=== PATIENT | male | born 1950 | race Caucasian/White ===

== ENCOUNTER 2023-04-11 06:55 | Outpatient (RCR) | payer MEDICARE, OTHER, SELFPAY ==
--- NOTE | 2023-03-01 11:49 | CR1_ITS ---
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
--- NOTE | 2023-03-01 11:49 | CR1_ITS ---
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
--- NOTE | 2023-03-29 15:32 | CR1_ITS ---
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
== END 2023-04-25 13:52 | disposition home or self-care (01) ==
LOC: CR 06:55
PROVIDERS: PCP Family Medicine; Visit Provider Family Medicine
DX: Z95.1 Presence of aortocoronary bypass graft (principal)
CPT/HCPCS: 93798

== ENCOUNTER 2023-09-24 19:44 | Emergency (ER) | payer MEDICARE, OTHER, SELFPAY ==
[2023-09-24 19:55] VITALS: BP 107/71; PULSE 98; RESP 16; TEMP 37.7; O2SAT 97; BMI 25.0
--- NOTE | 2023-09-24 20:29 | ED_ITS ---
HPI - General Adult General Chief complaint: Upper Respiratory Infection Stated complaint: General Weakness Time Seen by Provider: 09/24/23 20:00 Source: patient Mode of arrival: Wheelchair History of Present Illness HPI narrative: Patient's and another relative that he has been around have both tested positive for Covid. The patient has not been tested at home - he developed symptoms a few days ago - generalized aches, fatigue, headache. yesterday he had a fever at 101F at home. His convinced him to come to the ED to be evaluated. No nausea or vomiting or diarrhea. No chest pain or shortness of breath. He has mild nasal congestion and some sore throat with cough. He was vaccianted x2 and had a booster. Related Data Home Medications Medication Instructions Recorded Confirmed allopurinol 100 mg tablet 100 mg PO DAILY 03/10/23 03/10/23 aspirin 81 mg capsule 81 mg PO DAILY 03/10/23 03/10/23 atorvastatin 10 mg tablet 10 mg PO QPM 03/10/23 03/10/23 clopidogrel 75 mg tablet 75 mg PO DAILY 03/10/23 03/10/23 dorzolamide 22.3 mg-timolol 6.8 1 drp ophthalmic (eye) BID 03/10/23 03/10/23 mg/mL eye drops (Cosopt) latanoprost 0.005 % eye drops 1 drp ophthalmic (eye) DAILY 03/10/23 03/10/23 (Xalatan) losartan 100 mg tablet 100 mg PO DAILY 03/10/23 03/10/23 metoprolol succinate 25 mg 12.5 mg PO DAILY 03/10/23 03/10/23 tablet,extended release 24 hr Allergies Allergy/AdvReac Type Severity Reaction Status Date / Time codeine Allergy Severe Verified 09/24/23 19:59 [facility] Medical History (Updated 09/24/23 @ 20:33 by Alexander Rivera) FHx: cholecystectomy ?Z83.79 - Family history of other diseases of the digestive system (ICD-10) Glaucoma ?H40.9 - Unspecified glaucoma (ICD-10) TIA (transient ischemic attack) ?G45.9 - Transient cerebral ischemic attack, unspecified (ICD-10) Fracture of T7 vertebra ?S22.069A - Unspecified fracture of T7-T8 vertebra, initial encounter for closed fracture (ICD-10) Sick sinus syndrome ?I49.5 - Sick sinus syndrome (ICD-10) CAD (coronary artery disease) ?I25.10 - Atherosclerotic heart disease of [place] coronary artery without angina pectoris (ICD-10) HTN (hypertension) ?I10 - Essential (primary) hypertension (ICD-10) Exam Narrative Exam Narrative: Nurses notes and vital signs reviewed and patient is not hypoxic. afebrile General: Well-appearing and in no apparent distress. Skin: Warm, dry, no pallor noted. No rash. Head: Normocephalic, atraumatic. Neck: Supple, non-tender. No cervical lymphadenopathy. Eye: Pupils are equal, round and EOMI. No scleral icterus. Ears, Nose, Mouth, and Throat: TM are clear, no posterior oropharynx erythema or nasal mucosal hypertrophy, uvula is mid-line Oral mucosa is moist Cardiovascular: Regular Rate and Rhythm without murmur, gallop or rub. Respiratory: No accessory muscle use or respiratory distress. Lungs are clear to auscultation, no wheezing, rales or rhonchi Musculoskeletal: normal ROM, no calf or popliteal tenderness, no lower extremity edema/swelling GI: Abdomen is soft, non-distended. Normal bowel sounds. No tenderness to palpation. No rebound, guarding, or rigidity noted. Neurological: A&O x4. No cranial nerve dysfunction observed. No truncal ataxia. Moves all extremities. Sensation intact. Psychiatric: Cooperative and interactive. Normal mood and affect. Constitutional Vital Signs, click to edit/add: Last Vital Signs Temp 99.8 F 09/24/23 19:55 Pulse 98 H 09/24/23 19:55 Resp 16 09/24/23 19:55 BP 107/71 09/24/23 19:55 Pulse Ox 97 09/24/23 19:55 O2 Del Method Room Air 09/24/23 19:55 Course Vital Signs Vital signs: Vital Signs Temperature 99.8 F 09/24/23 19:55 Pulse Rate 98 H 09/24/23 19:55 Respiratory Rate 16 09/24/23 19:55 Blood Pressure 107/71 09/24/23 19:55 Pulse Oximetry 97 09/24/23 19:55 Oxygen Delivery Method Room Air 09/24/23 19:55 Temperature 99.8 F 09/24/23 19:55 Pulse Rate 98 H 12/31/23 19:55 Respiratory Rate 16 09/24/23 19:55 Blood Pressure 107/71 09/24/23 19:55 Pulse Oximetry 97 09/24/23 19:55 Oxygen Delivery Method Room Air 09/24/23 19:55 Medical Decision Making MDM Narrative Medical decision making narrative: Patient has exposure history and symptoms that suggest he has COVID. He does not want Paxlovid. We discussed the treatment of COVID on an outpatient basis. I encouraged him to increase his fluid intake. He already is taking Tylenol. He cannot take NSAIDs due to his cardiac history. Patient advised to rest, stay at home, practice social distancing, take Motrin and Tylenol for pain and fever if not allergic, stay well hydrated with Gatorade or similar drinks if vomiting or eat as tolerated if not and take any meds as prescribed. Reviewed reasons to return including rapid increase in respiratory rate, shortness of breath, confusion, inability to keep down sips of swallowed liquids for more than 24 hours. Asked patient to encourage any ill contacts to stay home and practice similar advice. Discharge Plan Discharge Chief Complaint: Upper Respiratory Infection Clinical Impression: COVID Time of Disposition Decision: 20:32 Prescriptions / Home Meds: No Action atorvastatin 10 mg tablet 10 mg PO QPM clopidogrel 75 mg tablet 75 mg PO DAILY metoprolol succinate 25 mg tablet extended release 24 hr 12.5 mg PO DAILY losartan 100 mg tablet 100 mg PO DAILY aspirin 81 mg capsule 81 mg PO DAILY allopurinol 100 mg tablet 100 mg PO DAILY dorzolamide-timolol [Cosopt] 22.3-6.8 mg/mL drops 1 drp ophthalmic (eye) BID latanoprost [Xalatan] 0.005 % drops 1 drp ophthalmic (eye) DAILY Instructions: COVID-19 (Coronavirus Disease 2019) (ED), COVID-19 and Chronic Health Conditions (ED), How to Recover from COVID-19 at Home (ED) Stand Alone Forms: Portal Instructions Referrals: ANTOINETTE LAO [Primary Care Provider] - 1 week
[2023-09-24 21:01] VITALS: PULSE 74; O2SAT 96
== END 2023-09-24 21:03 | disposition home or self-care (01) ==
PROVIDERS: Emergency Provider Emergency Medicine; PCP Family Medicine
DX: U07.1 COVID-19 (principal); Z86.73 Personal history of transient ischemic attack (TIA), and cerebral infarction without residual deficits; I25.10 Atherosclerotic heart disease of native coronary artery without angina pectoris; I10 Essential (primary) hypertension; Z79.899 Other long term (current) drug therapy; Z79.82 Long term (current) use of aspirin
CPT/HCPCS: 87804; 99281

== ENCOUNTER 2023-10-12 06:53 | Emergency (ER) | payer MEDICARE, OTHER, SELFPAY ==
[2023-10-12] VITALS (22 sets, daily range): BP systolic 81–97; BP diastolic 48–58; PULSE 60–78; RESP 9–21; TEMP 36.9–37.7; O2SAT 95–100; BMI 25.1
--- OUTSIDE RECORDS SUMMARY | 2023-10-12 07:01 | XMS_ITS | CCD ---
Author Name Unknown Address [address] [facility] [place] [address] Organization [facility] Care Team Providers Care Tallier Name Role Phone Dank BECK, Jose Jacques Primary Care Provider [phone] Yony BUSBY Attending Unavailable MD Yony BUSBY Attending Unavailable LIVE AVILA Attending Unavailable Dank BECK, Jose Jacques Primary Care Provider Rekha BECK, Shanon Em Primary Care Provider SHANON DA SILVA Primary Care Unavailab le LANKESTERRABIA Attending Unavaila ble VIGESAA, SHANON EM Primary Care Unavailab le GARCIAAIDEN Attending Unavailab le LANKESTER, RABIA VIVEROS Attending Unavaila ble VIGESAA, SHANON EM Primary Care Unavailab le VIGESAA, SHANON EM Primary Care Unavailab le GARCIAAIDEN Attending Unavailab le GARCIAAIDEN Referring Unavailab le VIGESAA, SHANON EM Primary Care Unavailab le VIGESAA, SHANON EM Primary Care Unavailab le GARCIAAIDEN Attending Unavailab le GARCIAAIDEN Referring Unavailab le VIGESAA, SHANON EM Primary Care Unavailab le VIGESAA, SHANON EM Primary Care Unavailab le LANKESTERRABIA Attending Unavaila ble LANKESTERRABIA Referring Unavaila ble VIGESAA, SHANON EM Primary Care Unavailab le VIGESAA, SHANON EM Admitting Unavailab le DENYGABRIEL Consulting Unavailab le DENYGABRIEL Attending Unavailab le VIGESAA, SHANON EM Primary Care Unavailab le CHAVESLANDY BARDALES Admitting Unavailabl e AIDEN GARCIA Attending Unavailab AIDEN Ritchie Referring Unavailab le MARILOUC, DOCTOR Admitting Unavailable MISC, DR MENDENHALL Attending Unavailable HEMEYER ., DR CURRY Primary Care Unavailable HEMEYER ., DR CURRY Admitting Unavailable HEMEYER ., DR CURRY Primary Care Unavailable HEMEYER ., DR CURRY Consulting Unavailable HEMEYER ., DR CURRY Attending Unavailable MISC, DR MENDENHALL Attending Unavailable HEMEYER ., DR CURRY Primary Care Unavailable HEMEYER ., DR CURRY Consulting Unavailable MISC, DOCTOR Admitting Unavailable VIGESAA, TAJ S Referring Unavailable HEMEYER, EDWARD J Primary Care Unavailable VIGESAA, TAJ S Referring Unavailable HEMEYER, EDADOLFO J Primary Care Unavailable VIGESAA, TAJ S Referring Unavailable HEMEYER, EDADOLFO J Primary Care Unavailable VIGESAA, TAJ S Referring Unavailable HEMEYER, EDADOLFO J Primary Care Unavailable VIGESAA, TAJ S Referring Unavailable HEMEYER, JOSE Jacques Primary Care Unavailable VIGESAA, TAJ S Referring Unavailable HEMEYER, JOSE J Primary Care Unavailable VIGESAA, TAJ S Referring Unavailable HEMEYER, EDWARD J Primary Care Unavailable VIGESAA, TAJ S Referring Unavailable HEMEYER, EDWARD J Primary Care Unavailable VIGESAA, TAJ S Referring Unavailable HEMEYER, EDADOLFO Jacques Primary Care Unavailable VIGESAA, TAJ S Referring Unavailable HEMEYER, EDWARD J Primary Care Unavailable VIGESAA, TAJ S Referring Unavailable HEMEYER, EDWARD J Primary Care Unavailable VIGESAA, TAJ S Referring Unavailable HEMEYER, EDADOLFO Jacques Primary Care Unavailable VIGESAA, TAJ S Admitting Unavailable VIGESAA, TAJ S Attending Unavailable HEMEYER, EDADOLFO J Primary Care Unavailable VIGESAA, TAJ S Referring Unavailable HEMEYER, EDWARD J Primary Care Unavailable VIGESAA, TAJ S Referring Unavailable HEMEYER, EDWARD Georige Primary Care Unavailable Hemeyer Jose BECK Primary Care Provider Allergies Allergy Classification Reported Allergen(s) Allergy Type Date of Onset Reaction(s) Facility (20 sources) Codeine; Translations: [codeine] Drug Allergy 2 Other (See Comments) [facility] (1 source) Codeine Drug Allergy 4 [facility] Repository Medications Current Medications Medication Drug Class(es) Dates Sig (Normalized) Sig (Original) acetaminophen 325 mg oral tablet (1 source) Start: 10-05-2022 take 650 mg by mouth every four hours for pain 650 mg, Oral, EVERY 4 HOURS PRN, Starting on Mon10/05/22 at 1124, Until Discontinued, Other, Pain (1-10) Give in addition to any other pain medication ordered at same time for any pain indication. Recovery(Cath) allopurinol 100 mg oral tablet (18 sources) Xanthine Oxidase Inhibitor take 1 tablet by mouth once daily allopurinol (ZYLOPRIM) 100 MG tablet Take 100 mg by mouth daily 0 Active aspirin 81 mg delayed release oral tablet (19 sources) Platelet Aggregation Inhibitor, Nonsteroidal Anti-inflammatory Drug Start: 10-21-2022 End: 10-21-2023 take 1 tablet by mouth once daily aspirin 81 MG EC tablet Take 1 (one) tablet (81 mg total) by mouth daily . 30 tablet 11 10/21/2022 10/21/2023 Active Start: 10-05-2022 take 81 mg by mouth every other day 81 mg, Oral, EVERY OTHER DAY, First dose on Mon10/05/22 at 1145, Until Discontinued Do not crush or break. atorvastatin 10 mg oral tablet (9 sources) HMG-CoA Reductase Inhibitor Start: 10-21-2022 End: 01-19-2023 take 1 tablet by mouth once daily atorvastatin (LIPITOR) 10 MG tablet Take 1 (one) tablet (10 mg total) by mouth nightly . 30 tablet 2 10/21/2022 01/19/2023 Active bisacodyl 10 mg rectal suppository (6 sources) Stimulant Laxative Start: 10-21-2022 End: 11-20-2022 bisacodyL (DULCOLAX) 10 mg suppository Insert 1 (one) suppository (10 mg total) into the rectum daily as needed for constipation . 12 suppository 0 10/21/2022 11/20/2022 Active clopidogrel 75 mg oral tablet (9 sources) P2Y12 Platelet Inhibitor Start: 10-22-2022 End: 01-20-2023 take 1 tablet by mouth once daily clopidogreL (PLAVIX) 75 mg tablet Take 1 (one) tablet (75 mg total) by mouth daily Start: 10/22/22. 30 tablet 2 10/22/2022 01/20/2023 Active dorzolamide 20 mg/ml / timolol 5 mg/ml ophthalmic solution (18 sources) Carbonic Anhydrase Inhibitor, beta-Adrenergic Jorge Start: 06-01-2022 dorzolamide-timolol (COSOPT) 22.3-6.8 MG/ML ophthalmic solution 22.3 drops 0 06/01/2022 Active Start: 06-01-2022 dorzolamide-ti moloL (COSOPT) 22.3-6.8 mg/mL ophthalmic solution 22 (twenty two) drops . 0 06/01/2022 Active losartan potassium 50 mg oral tablet (13 sources) Angiotensin 2 Receptor Jorge Start: 11-21-2022 End: 12-21-2022 take 1 tablet by mouth once daily losartan (COZAAR) 50 MG tablet Indications: S/P CABG (coronary artery bypass graft) Take 1 (one) tablet (50 mg total) by mouth daily . 30 tablet 0 11/21/2022 12/21/2022 Active Start: 10-06-2022 take 100 mg by mouth once karina y 100 mg, Oral, DAILY, First dose on Mirian 10/06/22 at 0900, Until Discontinued losartan (COZAAR ) 100 MG tablet Take 50 mg by mouth daily 0 Active take 1 tablet by ruslan th once daily losartan (COZAAR) 100 MG tablet Take 100 mg by mouth daily 0 Active 24 hr metoprolol succinate 25 mg extended release oral tablet (11 sources) beta-Adrenergic Jorge Start: 10-22-2022 End: 01-20-2023 take 0.5 tablet by mouth once daily metoprolol succinate (TOPROL-XL) 25 MG 24 hr tablet Take 0.5 (one-half) tablet (12.5 mg total) by mouth daily Start: 10/22/22. 15 tablet 2 10/22/2022 01/20/2023 Active Start: 10-06-2022 take 1 tablet by ruslan th twice daily metoprolol tartrate (LOPRESSOR) 25 MG tablet Take 1 tablet by mouth 2 times daily 60 tablet 3 10/06/2022 Active Start: 10-06-2022 metoprolol tar trate (LOPRESSOR) tablet 25 mg take 1 tablet by ruslan th once daily metoprolol succinate (TOPROL XL) 50 MG extended release tablet Take 50 mg by mouth daily 0 Active prednisoLONE acetate 10 mg/ml ophthalmic suspension (3 sources) Corticosteroid Start: 09-08-2022 prednisoLONE a cetate (PRED FORTE) 1 % ophthalmic suspension instill 1 (ONE) DROP IN THE LEFT EYE FOUR TIMES DAILY for FOUR days 0 09/08/2022 Active 1000 ml sodium chloride 9 mg/ml injection (5 sources) Start: 10-05-2022 IntraVENous, a t 5-250 mL/hr, PRN, if patient receiving piggyback infusions and maintenance fluids are not ordered OR KVO fluids to protect IV site / prevent frequent line interruptions/ long duration, Starting on Mon10/05/22 at 1124 For piggyback infusion, administer at same rate as piggyback for a total of 25 mL. Enter 25 mL into dose field and piggyback rate into rate field of order. If piggyback is infusing at a rate less than 100 mL/hr, enter 25 mL into dose field and 100 mL/hr into rate field of order. For KVO fluids, enter rate of 20 mL/hr or less into rate field of order. Recovery(Cath) Start: 10-05-2022 take 1 dose intraven ously twice daily 5-40 mL, IntraVENous, EVERY 12 HOURS SCHEDULED (2 times per day), First dose on Mon10/05/22 at 1145, Until Discontinued For Line Patency: Peripheral IV = 5 mL; Midline or Central Line = 10 mL/lumen. If following IV push medication, administer flush at same rate as the IV push. Flush volume is determined by type of infusion therapy being given. For non-viscous solutions use: Peripheral IV = 5 mL Midline or Central Line = 10 mL/lumen For viscous solutions (i.e. blood components, parenteral nutrition, contrast media, or after obtaining blood sample) use: Peripheral IV = 10 mL Midline or Central Line = 20 mL/lumen Recovery(Cath) Start: 10-05-2022 take 5-40 mL intrave nously once as needed 5-40 mL, IntraVENous, PRN, Starting on Mon10/05/22 at 1124, Until Discontinued, Line Care, After every IV line use For Line Patency: Peripheral IV = 5 mL; Midline or Central Line = 10 mL/lumen. If following IV push medication, administer flush at same rate as the IV push. Flush volume is determined by type of infusion therapy being given. For non-viscous solutions use: Peripheral IV = 5 mL Midline or Central Line = 10 mL/lumen For viscous solutions (i.e. blood components, parenteral nutrition, contrast media, or after obtaining blood sample) use: Peripheral IV = 10 mL Midline or Central Line = 20 mL/lumen Recovery(Cath) Start: 10-05-2022 End: 10-05-2022 0.9 % sodium chloride infusi on Start: 09-06-2022 End: 09-07-2022 sodium chloride (PF) 0.9 % i njection 10 mL traMADol hydrochloride 50 mg oral tablet (3 sources) Opioid Agonist Start: 10-21-2022 End: 10-24-2022 take 1 tablet by mouth every eight hours as needed for pain traMADoL (ULTRAM) 50 mg tablet Indications: S/P CABG (coronary artery bypass graft) Take 1 (one) tablet (50 mg total) by mouth every 8 (eight) hours as needed for pain . 9 tablet 0 10/21/2022 10/24/2022 Active Start: 10-05-2022 End: 10-11-2022 take 1 tablet by mouth every six hours as needed for pain traMADol (ULTRAM) 50 MG tablet Indications: Post-op pain , SSS (sick sinus syndrome) ([facility]) Take 1 tablet by mouth every 6 hours as needed for Pain for up to 5 days. Max Daily Amount: 200 mg 20 tablet 0 10/06/2022 10/11/2022 Active Completed/Discontinued Medications Medication Drug Class(es) Dates Sig (Normalized) Sig (Original) ceFAZolin 2000 mg injection (1 source) Cephalosporin Antibacterial Start: 10-05-2022 End: 10-05-2022 ceFAZolin (ANCEF) 2000 mg in dextrose 3 % 50 mL IVPB (duplex) docusate sodium 100 mg oral capsule (8 sources) Start: 10-25-2022 End: 11-24-2022 take 1 capsule by mouth twice daily docusate sodium (COLACE) 100 MG capsule Indications: S/P CABG (coronary artery bypass graft) Take 1 (one) capsule (100 mg total) by mouth 2 (two) times a day Hold if you have loose stool . 60 capsule 0 10/25/2022 11/21/2022 Discontinued (Therapy completed) Start: 10-22-2022 End: 11-21-2022 take 1 capsule by mouth once daily docusate sodium (COLACE) 100 MG capsule Take 1 (one) capsule (100 mg total) by mouth daily Hold if you have loose stool Start: 10/22/22. 30 capsule 0 10/22/2022 10/25/2022 Discontinued ferrous sulfate 325 mg oral tablet (2 sources) Start: 10-21-2022 End: 11-20-2022 take 1 tablet by mouth three times daily at mealtime ferrous sulfate 325 (65 FE) MG tablet Take 1 (one) tablet (325 mg total) by mouth 3 (three) times a day with meals . 90 tablet 0 10/21/2022 10/25/2022 Discontinued (Side effects) latanoprost 0.05 mg/ml ophthalmic solution (19 sources) Prostaglandin Analog Start: 10-05-2022 1 drop, Both Eyes, NIGHTLY, First dose on Mon10/05/22 at 2100, Until Discontinued Start: 06-18-2022 take 1 drop(s) into the eye(s) at bedtime latanoprost (XALATAN) 0.005 % ophthalmic solution INSTILL 1 DROP IN BOTH EYES AT BEDTIME 0 06/18/2022 Active Start: 06-18-2022 take 1 drop(s) into the eye(s) at bedtime latanoprost (XALATAN) 0.005 % ophthalmic solution Administer 1 (one) drop to both eyes at bedtime . 0 06/18/2022 Active nabumetone 750 mg oral tablet (3 sources) Nonsteroidal Anti-inflammatory Drug End: 09-06-2022 nabumetone (RELAFEN) 750 MG tablet Take 750 mg by mouth as needed for Pain 0 09/06/2022 Discontinued (Therapy completed) pantoprazole 40 mg delayed release oral tablet (7 sources) Proton Pump Inhibitor Start: 10-21-2022 End: 11-21-2022 take 1 tablet by mouth once daily pantoprazole (PROTONIX) 40 MG tablet Take 1 (one) tablet (40 mg total) by mouth daily . 30 tablet 0 10/21/2022 11/21/2022 Discontinued (Therapy completed) regadenoson (LEXISCAN) injection 0.4 mg (1 source) Start: 09-06-2022 End: 09-06-2022 regadenoson (LEXISCAN) injection 0.4 mg technetium sestamibi (CARDIOLITE) injection 10 millicurie (1 source) Start: 09-06-2022 End: 09-06-2022 technetium sestamibi (CARDIOLITE) injection 10 millicurie technetium sestamibi (CARDIOLITE) injection 30 millicurie (1 source) Start: 09-06-2022 End: 09-06-2022 technetium sestamibi (CARDIOLITE) injection 30 millicurie Problems Active Problems Problem Classification Problem Date Documented Da te Episodic/Chronic Cardiac dysrhythmias (10 sources) Ventricular tachycardia; Translations: [V-tach] Onset: 10-05-2022 Chronic Conduction disorders (3 sources) Presence of cardiac pacemaker; Translations: [Cardiac pacemaker in situ] Onset: 02-21-2023 Chronic Coronary atherosclerosis and other heart disease (9 sources) Coronary arteriosclerosis; Translations: [Atherosclerotic heart disease of [place] coronary artery without angina pectoris] Onset: 10-14-2022 10-14-2022 Chronic Coronary atherosclerosis and other heart disease (11 sources) Presence of aortocoronary bypass graft; Translations: [Presence of aortocoronary bypass graft] Onset: 10-25-2022 Episodic Disorders of lipid metabolism (5 sources) Hyperlipidemia, unspecified; Translations: [Hyperlipidemia] Onset: 02-21-2023 Chronic Essential hypertension (14 sources) Hypertensive disorder; Translations: [Essential (primary) hypertension] Onset: 05-18-2022 Chronic Malaise and fatigue (6 sources) Fatigue; Translations: [Chronic fatigue, unspecified] Onset: 07-19-2022 Chronic Nutritional deficiencies (6 sources) Vitamin D deficiency; Translations: [Vitamin D deficiency, unspecified] Onset: 07-19-2022 Chronic Other and ill-defined heart disease (3 sources) Atrial dilatation; Translations: [Cardiomegaly] Chronic Other and ill-defined heart disease (4 sources) Cardiomegaly; Translations: [CARDIOMEGALY] Onset: 05-20-2022 Chronic Other lower respiratory disease (1 source) Dyspnea; Translations: [Shortness of breath] Episodic Other nervous system disorders (1 source) Postoperative pain ; Translations: [Other acute postprocedural pain] Episodic Jenny-; endo-; and myocarditis; cardiomyopathy (except that caused by tuberculosis or sexually transmitted disease) (1 source) Endocarditis, valve unspecified; Translations: [ENDOCARDITIS VALVE UNSPECIFIED] Onset: 05-20-2022 Chronic Unclassified (1 source) Ventricular tachycardia, unspecified; Translations: [Ventricular tachycardia, unspecified] Onset: 09-06-2022 Past or Other Problems Problem Classification Problem Date Documented Date Episodic/Chronic Cardiac dysrhythmias (7 sources) Bradycardia; Translations: [Bradycardia, unspecified] Onset: 05-20-2022 Episodic Heart valve disorders (12 sources) Heart murmur; Translations: [Cardiac murmur, unspecified] Onset: 07-19-2022 Episodic Other lower respiratory disease (1 source) Shortness of breath; Translations: [Shortness of breath] Onset: 09-06-2022 Episodic Other nervous system disorders (1 source) Other acute postprocedural pain; Translations: [Other acute postprocedural pain] Onset: 10-05-2022 Episodic Other screening for suspected conditions (not mental disorders or infectious disease) (7 sources) Electrocardiogram abnormal; Translations: [Abnormal electrocardiogram [ECG] [EKG]] Onset: 09-06-2022 Episodic Results Test Name Value Interpretation Reference Range Facility CBC with Auto Differentialon 02-21-2023 Basophils (Bld) [#/Vol] 0.10 10*3/[facility]L [facility] Basophils/100 WBC (Bld) 1 % 0 - 2 % [facility] Differential Type YES [facility] Eosinophils (Bld) [#/Vol] 0.20 10*3/uL [facility] Eosinophils/100 WBC (Bld) 3 % 0 - 5 % [facility] Erythrocyte distribution width (RBC) [Ratio] 14.4 % 12.1 - 15.2 % [facility] Hematocrit (Bld) [Volume fraction] 45.3 % 41 - 53 % [facility] Hemoglobin (Bld) [Mass/Vol] 15.4 g/dL 13.5 - 17.5 g/dL [facility] Lymphocytes/100 WBC (Bld) 19 % 13 - 44 % [facility] Lymphocytes/100 WBC (Bld) 1.50 % [facility] MCH (RBC) [Entitic mass] 30.5 pg 26 - [address] [facility] MCHC (RBC) [Mass/Vol] 33.9 g/dL 31 - 37 g/dL B ON [facility] MCV (RBC) [Entitic vol] 89.9 fL 80 - [address] [facility] Monocytes/100 WBC (Bld) 9 % 5 - 9 % [facility] Monocytes/100 WBC (Bld) 0.70 % [facility] Neutrophils/100 WBC (Bld) 68 % 39 - 75 % [facility] Platelets (Bld) [#/Vol] 247 10*3/uL [facility] RBC (Bld) [#/Vol] 5.04 10*6/uL 4.5 - 5.9 m/uL [facility] Segmented neutrophils/100 WBC (Bld) 5.40 % [facility] WBC other (Bld) [#/Vol] 7.8 [facility] CBC with Diffon 02-21-2023 Abs. Basophil 0.10 k/uL Normal 0.0-0.2 [facility] Comment on above: Performed By: #### C DP, MG, ZFAST, TSHX, CP ####[facility] [id number] [facility] [place] [address] Lab Director: Maureen Gonsalves MD#### LIPR ####[address] [place], [place] [id number] lab Director: Malick Ballard MD Abs.Neutrophil (Seg) 5.40 k/uL Normal 2.1-6.5 [facility] Comment on above: Performed By: #### C DP, MG, ZFAST, TSHX, CP ####[facility] [id number] Lab Director: Maureen Gonsalves MD#### LIPR ####[place] [address] Lab Director: Malick Ballard MD Auto Diff Performed YES Normal [facility] Comment on above: Performed By: #### C DP, MG, ZFAST, TSHX, CP ####[facility] [id number] [place], [place] [address])[phone] Director: Maureen Gonsalves MD#### LIPR ####[place] [address] Lab Director: Malick Ballard MD Basophils/100 WBC (Bld) 1 % Normal 0-2 [facility] Comment on above: Performed By: #### C DP, MG, ZFAST, TSHX, CP ####[facility] [id number] [place], [place] [address])[phone] Director: Maureen Gonsalves MD#### LIPR ####[place] [address] Lab Director: Malick Ballard MD Eosinophils (Bld) [#/Vol] 0.20 10*3/uL Normal 0.0-0.4 [facility] Comment on above: Performed By: #### C DP, MG, ZFAST, TSHX, CP ####[facility] [id number] Lab Director: Maureen Gonsalves MD#### LIPR ####[place] [address] Lab Director: Malick Ballard MD Eosinophils/100 WBC (Bld) 3 % Normal 0-5 [facility] Comment on above: Performed By: #### C DP, MG, ZFAST, TSHX, CP ####[facility] [address] [place], [place] [id number] Lab Director: Maureen Gonsalves MD#### LIPR ####[address] [place] [address] Lab Director: Malick Ballard MD Erythrocyte distribution width (RBC) [Ratio] 14.4 % Normal 12.1-15.2 [facility] Comment on above: Performed By: #### C DP, MG, ZFAST, TSHX, CP ####[facility] [id number] [place], [place] [id number] Lab Director: Maureen Gonsalves MD#### LIPR ####[address] [address] Lab Director: Malick Ballard MD Hematocrit (Bld) [Volume fraction] 45.3 % Normal 41-53 [facility] Comment on above: Performed By: #### C DP, MG, ZFAST, TSHX, CP ####[facility] [id number] [place], [place] [phone] Lab Director: Maureen Gonsalves MD#### LIPR ####[address] [address] Lab Director: Malick Ballard MD Hemoglobin (Bld) [Mass/Vol] 15.4 g/dL Normal 13.5-17.5 [facility] Comment on above: Performed By: #### C DP, MG, ZFAST, TSHX, CP ####[facility] [id number] [place], [place] [id number] Lab Director: Maureen Gonsalves MD#### LIPR ####[address] [address] Lab Director: Malick Ballard MD Lymphocytes (Bld) [#/Vol] 1.50 10*3/uL Normal 1.0-4.8 [facility] Comment on above: Performed By: #### C DP, MG, ZFAST, TSHX, CP ####[facility] [id number] [place], [place] [id number] Lab Director: Maureen Gonsalves MD#### LIPR ####[address] [place] [address] Lab Director: Malick Ballard MD Lymphocytes/100 WBC (Bld) 19 % Normal 13-44 [facility] Comment on above: Performed By: #### C DP, MG, ZFAST, TSHX, CP ####[facility] [id number] [place], [place] [phone] Lab Director: Maureen Gonsalves MD#### LIPR ####[address] [address] Lab Director: Malick Ballard MD MCH (RBC) [Entitic mass] 30.5 pg Normal 26-34 [facility] Comment on above: Performed By: #### C DP, MG, ZFAST, TSHX, CP ####[facility] [id number] [place], [place] [id number] Lab Director: Maureen Gonsalves MD#### LIPR ####[address] [address] Lab Director: Malick Ballard MD MCHC (RBC) [Mass/Vol] 33.9 g/dL Normal 31-37 [facility] Comment on above: Performed By: #### C DP, MG, ZFAST, TSHX, CP ####[facility] [id number] [place], [place] [id number] Lab Director: Maureen Gonsalves MD#### LIPR ####[address] [place] [address] Lab Director: Malick Ballard MD MCV (RBC) [Entitic vol] 89.9 fL Normal 80-100 [facility] Comment on above: Performed By: #### C DP, MG, ZFAST, TSHX, CP ####[facility] [id number] [place], [place] [address])[phone] Director: Maureen Gonsalves MD#### LIPR ####[address] [place] [address] Lab Director: Malick Ballard MD Monocytes (Bld) [#/Vol] 0.70 10*3/uL Normal 0.0-1.0 [facility] Comment on above: Performed By: #### C DP, MG, ZFAST, TSHX, CP ####[facility] [address] [place], [place] [address])[phone] Director: Maureen Gonsalves MD#### LIPR ####[place], [place] [address])[phone] Director: Malick Ballard MD Monocytes/100 WBC (Bld) 9 % Normal 5-9 [facility] Comment on above: Performed By: #### C DP, MG, ZFAST, TSHX, CP ####[facility] [address] [place], [place] [address])[phone] Director: Maureen Gonsalves MD#### LIPR ####[address] [place], [place] [address])[phone] Director: Malick Ballard MD Neutrophil (Seg) 68 % Normal 39-75 [facility] Comment on above: Performed By: #### C DP, MG, ZFAST, TSHX, CP ####[facility] [address] [place], [place] [address])[phone] Director: Maureen Gonsalves MD#### LIPR ####[address] [place] [address] Lab Director: Malick Ballard MD Platelets (Bld) [#/Vol] 247 10*3/uL Normal 140-450 [facility] Comment on above: Performed By: #### C DP, MG, ZFAST, TSHX, CP ####[facility] [id number] [place], [place] [id number])[phone] Director: Maureen Gonsalves MD#### LIPR ####[address] [place], [place] [id number])[phone] Director: Malick Ballard MD RBC (Bld) [#/Vol] 5.04 10*6/uL Normal 4.5-5.9 [facility] Comment on above: Performed By: #### C DP, MG, ZFAST, TSHX, CP ####[facility] [address] [place], [place] [address])[phone] Director: Maureen Gonsalves MD#### LIPR ####[address] [id number])[phone] Director: Malick Ballard MD WBC (Bld) [#/Vol] 7.8 10*3/uL Normal 3.5-11.0 [facility] Comment on above: Performed By: #### C DP, MG, ZFAST, TSHX, CP ####[facility] [id number] [place] [place], [place] [phone] Director: Maureen Gonsalves MD#### LIPR ####[address] [place], [place] [phone])[phone] Director: Malick Ballard MD Comp Metabolic Profon 2022 Alkaline Phos 177 U/L High 40-129 [facility] [place] Comment on above: Performed By: #### C DP, MG, ZFAST, TSHX, CP ####[facility] [address] [place], [place] [phone] Director: Maureen Gonsalves MD#### LIPR ####[facility] [address] [place], [place] [phone] Lab Director: Malick Ballard MD BUN/CRE Ratio 18 Normal 9-20 [facility] [place] Comment on above: Performed By: #### C DP, MG, ZFAST, TSHX, CP ####[facility] Yif[address] [place], [place] [phone] Lab Director: Maureen Gonsalves MD#### LIPR ####[facility] [place], [place] 2167908 Lab Director: Malick Ballard MD GFR/1.73 sq M.predicted among non-blacks MDRD (S/P/Bld) [Vol rate/Area] mL/min/{1.73_m2} Normal >60 [facility] Comment on above: Result Comment: These results are not intended for use in patients <18 years of age. eGFR results are calculated without a race factor using the 2020 CKD-EPI equation. Careful clinical correlation is recommended, particularly when comparing to results calculated using previous equations. The CKD-EPI equation is less accurate in patients with extremes of muscle mass, extra-renal metabolism of creatine, excessive creatine ingestion, or following therapy that affects renal tubular secretion. Performed By: #### C DP, MG, ZFAST, TSHX, CP ####[facility] [address] [place], [place] [phone] Lab Director: Maureen Gonsalves MD#### LIPR ####[facility] [address] [place] [address] Lab Director: Malick Ballard MD Albumin [Mass/Vol] 4.4 g/dL Normal 3.5-5.2 [facility] Comment on above: Performed By: #### C DP, MG, ZFAST, TSHX, CP ####[facility] [address] [place], [place] [phone] Lab Director: Maureen Gonsalves MD#### LIPR ####[facility] [place] [address] Lab Director: Malick Ballard MD ALT [Catalytic activity/Vol] 28 U/L Normal 5-[address] [facility] Comment on above: Performed By: #### C DP, MG, ZFAST, TSHX, CP ####[facility] [address] [place], [place] 1971190 lab Director: Maureen Gonsalves MD#### LIPR ####[address] [phone] Lab Director: Malick Ballard MD Anion gap [Moles/Vol] 9 mmol/L Normal 9-[address] [facility] Comment on above: Performed By: #### C DP, MG, ZFAST, TSHX, CP ####[facility] [address] [place], [place] [phone] lab Director: Maureen Gonsalves MD#### LIPR ####[address] [address] lab Director: Malick Ballard MD AST [Catalytic activity/Vol] 26 U/L Normal <[address] [facility] Comment on above: Performed By: #### C DP, MG, ZFAST, TSHX, CP ####[facility] Krc[address] [place], [place] [phone] lab Director: Maureen Gonsalves MD#### LIPR ####[address] [address] lab Director: Malick Ballard MD Bilirubin [Mass/Vol] 0.6 mg/dL Normal 0.3-1.[address] [facility] Comment on above: Performed By: #### C DP, MG, ZFAST, TSHX, CP ####[facility] [address] [place], [place] [phone] lab Director: Maureen Gonsalves MD#### LIPR ####[address] [place], [place] 7592408 Lab Director: Malick Ballard MD Calcium [Mass/Vol] 10.1 mg/dL Normal 8.6-10.4 [facility] Comment on above: Performed By: #### C DP, MG, ZFAST, TSHX, CP ####[facility] [address] [place] [address] lab Director: Maureen Gonsalves MD#### LIPR ####[address] [place], [place] [phone] lab Director: Malick Ballard MD Chloride [Moles/Vol] 107 mmol/L Normal 98-[address] [facility] Comment on above: Performed By: #### C DP, MG, ZFAST, TSHX, CP ####[place] [address] lab Director: Maureen Gonsalves MD#### LIPR ####[address] [phone] lab Director: Malick Ballard MD CO2 [Moles/Vol] 23 mmol/L Normal 20-31 [facility] Comment on above: Performed By: #### C DP, MG, ZFAST, TSHX, CP ####[facility] [address] [place] [phone] Lab Director: Maureen Gonsalves MD#### LIPR ####[address] [place], [place] 0284408 Lab Director: Malick Ballard MD Creatinine [Mass/Vol] 1.11 mg/dL Normal 0.70-1.[address] [facility] Comment on above: Performed By: #### C DP, MG, ZFAST, TSHX, CP ####[facility] [address] [place] [phone] lab Director: Maureen Gonsalves MD#### LIPR ####[address] [place], [place] 0504708 Lab Director: Malick Ballard MD Glucose [Mass/Vol] 97 mg/dL Normal 70-99 [facility] Comment on above: Performed By: #### C DP, MG, ZFAST, TSHX, CP ####[facility] [address] [place], [place] [phone] lab Director: Maureen Gonsalves MD#### LIPR ####[address] [phone] Lab Director: Malick Ballard MD Potassium [Moles/Vol] 4.2 mmol/L Normal 3.7-5.3 [facility] Comment on above: Performed By: #### C DP, MG, ZFAST, TSHX, CP ####[facility] Mtb[address] [place], [place] [phone] lab Director: Maureen Gonsalves MD#### LIPR ####[address] [address] Lab Director: Malick Ballard MD Protein [Mass/Vol] 6.6 g/dL Normal 6.4-8.3 [facility] Comment on above: Performed By: #### C DP, MG, ZFAST, TSHX, CP ####[facility] [address] [place], [place] [phone] Lab Director: Maureen Gonsalves MD#### LIPR ####[address] [phone] Lab Director: Malick Ballard MD Sodium [Moles/Vol] 139 mmol/L Normal 135-144 [facility] Comment on above: Performed By: #### C DP, MG, ZFAST, TSHX, CP ####[facility] [address] [place], [place] 9289490 lab Director: Maureen Gonsalves MD#### LIPR ####[facility] [address] [place], [place] 4811108 lab Director: Malick Ballard MD Urea nitrogen [Mass/Vol] 20 mg/dL Normal 8-[address] [facility] Comment on above: Performed By: #### C DP, MG, ZFAST, TSHX, CP ####[facility] [address] [place], [place] 3494690 lab Director: Maureen Gonsalves MD#### LIPR ####[facility] [place], [place] 7072208 lab Director: Malick Ballard MD Comprehensive Metabolic Pane john 02-21-2023 ALP [Catalytic activity/Vol] 177 U/L High 40 - 129 U/L [facility] GFR/1.73 sq M.predicted MDRD (S/P/Bld) [Vol rate/Area] - PINF [facility] Comment on above: These results are not intended for use in patients <18 years of age. eGFR results are calculated without a race factor using the 2020 CKD-EPI equation. Careful clinical correlation is recommended, particularly when comparing to results calculated using previous equations. The CKD-EPI equation is less accurate in patients with extremes of muscle mass, extra-renal metabolism of creatine, excessive creatine ingestion, or following therapy that affects renal tubular secretion. Interpretation and review of laboratory results Abnormal [facility] Urea nitrogen/Creatinine [Mass ratio] 18 mg/mg 9 - [address] [facility] Lipid Panelon 02-21-2023 Cholesterol [Mass/Vol] 115 mg/dL NINF - 200 mg/dL [facility] Comment on above: Cholesterol Guidelines: <200 Desirable 200-240 Borderline >240 Undesirable Cholesterol in HDL [Mass/Vol] 47 mg/dL 40 - PINF mg/dL [facility] Comment on above: HDL Guidelines: <40 Undesirable 40-59 Borderline >59 Desirable Cholesterol in LDL [Mass/Vol] 53 mg/dL 0 - 130 mg/dL [facility] Comment on above: LDL Guidelines: <100 Desirable 100-129 Near to/above Desirable 130-159 Borderline >159 Undesirable Direct (measured) LDL and calculated LDL are not interchangeable tests. Cholesterol.total/Cho lesterol in HDL [Mass ratio] 2.4 {ratio} NINF - [address] [facility] Triglyceride [Mass/Vol] 73 mg/dL NINF - 150 mg/dL [facility] Comment on above: Triglyceride Guidelines: <150 Desirable 150-199 Borderline 200-499 High >499 Very high Based on AHA Guidelines for fasting triglyceride, June 2012. [facility] Lipid Profileon 02-21-2023 Cholesterol [Mass/Vol] 115 mg/dL Normal <200 [facility] Comment on above: Result Comment: Cholesterol Guidelines: <200 Desirable 200-240 Borderline >240 Undesirable Performed By: #### C DP, MG, ZFAST, TSHX, CP ####[facility] [address] [place], [place] [address])[phone] Director: Maureen Gonsalves MD#### LIPR ####[facility] [address] [place] [address] Lab Director: Malick Ballard MD Cholesterol in HDL [Mass/Vol] 47 mg/dL Normal >40 [facility] Comment on above: Result Comment: HDL Guidelines: <40 Undesirable 40-59 Borderline >59 Desirable Performed By: #### C DP, MG, ZFAST, TSHX, CP ####[facility] [address] [place], [place] [address])[phone] Director: Maureen Gonsalves MD#### LIPR ####[facility] [address] [place] [address] Lab Director: Malick Ballard MD Cholesterol in LDL [Mass/Vol] 53 mg/dL Normal 0-130 [facility] Comment on above: Result Comment: LDL Guidelines: <100 Desirable 100-129 Near to/above Desirable 130-159 Borderline >159 Undesirable Direct (measured) LDL and calculated LDL are not interchangeable tests. Performed By: #### C DP, MG, ZFAST, TSHX, CP ####[facility] [address] [place] [address] Lab Director: Maureen Gonsalves MD#### LIPR ####[address] [place] [address] Lab Director: Malick Ballard MD Cholesterol.total/Cho lesterol in HDL [Mass ratio] 2.4 {ratio} Normal <5 [facility] Comment on above: Performed By: #### C DP, MG, ZFAST, TSHX, CP ####[facility] [address] [place] [address] Lab Director: Maureen Gonsalves MD#### LIPR ####[address] [place], [place] 4100808 Lab Director: Malick Ballard MD Triglyceride [Mass/Vol] 73 mg/dL Normal <150 [facility] Comment on above: Result Comment: Triglyceride Guidelines: <150 Desirable 150-199 Borderline 200-499 High >499 Very high Based on AHA Guidelines for fasting triglyceride, June 2012. Performed By: #### C DP, MG, ZFAST, TSHX, CP ####[facility] [address] [place] [address] Lab Director: Maureen Gonsalves MD#### LIPR ####[address] [place] [address] Lab Director: Malick Ballard MD Magnesiumon 02-21-2023 Magnesium [Mass/Vol] 2.0 mg/dL Normal 1.6-2.[address] [facility] Comment on above: Performed By: #### C DP, MG, ZFAST, TSHX, CP ####[facility] [address] [place] [address] Lab Director: Maureen Gonsalves MD#### LIPR ####[address], [place] 2369108 lab Director: Malick Ballard MD No Panel Informationon 02-[address] [facility] Patient Fasting?on 3 Patient Fasting? YES [facility] Patient fasting?on 3 Patient fasting? YES Normal [facility] Comment on above: Performed By: #### C DP, MG, ZFAST, TSHX, CP ####[facility] [address] [place], [place] [phone] lab Director: Maureen Gonsalves MD#### LIPR ####[facility] [address] [place], [place] 9247108 lab Director: Malick Ballard MD TSH w/reflex to FT4on 2022 Thyroid Stim. Horm. 1.84 uIU/mL Normal 0.30-5.00 [facility] Comment on above: Performed By: #### C DP, MG, ZFAST, TSHX, CP ####[facility] [address] [place], [place] 9478590 lab Director: Maureen Gonsalves MD#### LIPR ####[facility] [place], [place] 7396508 lab Director: Malick Ballard MD TSH with Reflexon 02-21-2023 TSH [Mass/Vol] 1.84 [facility] ECG 12 Leadon 11-21-2022 Atrial Rate [facility] P [facility] P-R Interval [facility] Q-T Interval [facility] Q-T Interval (corrected) [facility] QRS Duration [facility] QTC Calculation (Bezet) [facility] R [place] [facility] T Maxwell [facility] Ventricular Rate [facility] XR CHEST AP/PA AND LATon XR CHEST AP/PA AND LAT EXAMINATION: XR CHEST AP/PA AND LAT 11/21/2022 10:35 am HISTORY: ORDERING SYSTEM PROVIDED HISTORY: s/p CABG, TECHNOLOGIST PROVIDED HISTORY: Illness/Other Reason for exam: 6 weeks s/p cabg Cancer History: u Surgery, RadiationHistory: u Encounter Type: Subsequent/Follow-up Additional signs and symptoms: none at this time ORDERING SYSTEM PROVIDED DIAGNOSIS CODES: Z95.1 S/P CABG (coronary artery bypass graft) COMPARISON: 10/31/2022 FINDINGS: Lungs are mildly hyperinflated. There are trace bilateral pleural effusions that are decreasing. No focal consolidation or pneumothorax. Pulmonary vasculature is within normal limits. Thoracic aorta is tortuous. Heart size within normal limits. There are coronary bypass grafting changes and left-pectoral dual chamber cardiac pacemaker device. There are degenerative changes of the spine with compression fractures in the midthoracic spine. There are surgical clips in the upper abdomen. IMPRESSION: 1. Pulmonary hyperinflation with improving tiny bilateral pleural effusions. No focal consolidation. 2. Coronary artery bypass grafting changes and normal heart size with dual-chamber cardiac pacemaker. Workstation ID: [id number] Dictated by: YUE OCONNOR on MonNov 22, 2022 8:28:23 AM EST Transcribed by: YUE OCONNOR on MonNov 22, 2022 8:28:23 AM EST Finalized by: YUE OCONNOR on MonNov 22, 2022 8:28:23 AM EST Normal [facility] Comment on above: Order Comment: Injur y/Trauma or Illness?:Illness/Other How long have you had these symptoms (acute/chronic)?:Acute Reason for exam?:6 weeks s/p cabg History of cancer?:u Surgeries, chemotherapy, or radiation?:u Type of Exam?:Subsequent/Follow-up Additional signs and symptoms?:none at this time XR CHEST AP/PA AND LATon XR CHEST AP/PA AND LAT EXAMINATION: XR CHEST AP/PA AND LAT HISTORY: ORDERING SYSTEM PROVIDED HISTORY: s/p CABG, TECHNOLOGIST PROVIDED HISTORY: Illness/Other Reason for exam: 2 weeks s/p cabg Cancer History: u Surgery, RadiationHistory: u Encounter Type: Subsequent/Follow-up Additional signs and symptoms: none at this time ORDERING SYSTEM PROVIDED DIAGNOSIS CODES: Z95.1 S/P CABG (coronary artery bypass graft) COMPARISON: 10/15/2022. FINDINGS: Two-view chest x-ray. No pneumothorax. Small bibasilar pleural effusions. No focal airspace consolidation. Normal heart size. Postoperative changes of median sternotomy, CABG and left chest transvenous pacemaker placement. Stable mediastinal contours. Increased thoracic kyphosis with multilevel spondylosis. Chronic vertebral body compression deformities involving the midthoracic spine. IMPRESSION: Small bibasilar pleural effusions, similar to 10/25/2022. Stable mediastinal contours. /[facility] Workstation ID: [id number] Dictated by: AL FITZPATRICK on MonOct 31, 2022 10:02:20 AM EST Transcribed by: TIANNA TURCIOS on MonOct 31, 2022 10:37:06 AM EST Finalized by: AL FITZPATRICK on MonOct 31, 2022 8:46:48 PM EST Normal [facility] Comment on above: Order Comment: Injur y/Trauma or Illness?:Illness/Other How long have you had these symptoms (acute/chronic)?:Acute Reason for exam?:2 weeks s/p cabg History of cancer?:u Surgeries, chemotherapy, or radiation?:u Type of Exam?:Subsequent/Follow-up Additional signs and symptoms?:none at this time XR CHEST AP/PA AND LATon XR CHEST AP/PA AND LAT EXAMINATION: XR CHEST AP/PA AND LAT 10/25/2022 9:48 am HISTORY: ORDERING SYSTEM PROVIDED HISTORY: s/p CABG, TECHNOLOGIST PROVIDED HISTORY: Illness/Other Reason for exam: 1 week s/p cabg Cancer History: u Surgery, RadiationHistory: u Encounter Type: Initial Additional signs and symptoms: none at this time ORDERING SYSTEM PROVIDED DIAGNOSIS CODES: Z95.1 S/P CABG (coronary artery bypass graft) COMPARISON: 10/21/2022 FINDINGS: There are tiny bilateral pleural effusions that are new from prior study. There is mild left lower lobe without consolidation. No pneumothorax. There are coronary artery bypass grafting changes and dual chamber cardiac pacemaker device. Heart size within normal limits. Negative for pulmonary edema. IMPRESSION: 1. Coronary artery bypass grafting changes and normal heart size with cardiac pacemaker. Negative for pulmonary edema. 2. Tiny bilateral pleural effusions, new from 10/21/2022. 3. Mild left lower lobe atelectasis. No focal consolidation. Workstation ID: [id number] Dictated by: YUE OCONNOR on MonOct 25, 2022 11:11:50 AM EST Transcribed by: YUE OCONNOR on MonOct 25, 2022 11:11:50 AM EST Finalized by: YUE OCONNOR on MonOct 25, 2022 11:11:50 AM EST [facility] Comment on above: Order Comment: Injur y/Trauma or Illness?:Illness/Other How long have you had these symptoms (acute/chronic)?:Acute Reason for exam?:1 week s/p cabg History of cancer?:u Surgeries, chemotherapy, or radiation?:u Type of Exam?:Initial Additional signs and symptoms?:none at this time XR CHEST PA/APon 10-21-2022 XR CHEST PA/AP EXAMINATION: XR CHEST PA/AP 10/21/2022 5:17 am HISTORY: ORDERING SYSTEM PROVIDED HISTORY: post open heart surgery, TECHNOLOGIST PROVIDED HISTORY: Illness/Other Reason for exam: post open heart surgery Cancer History: u Surgery, RadiationHistory: u Encounter Type: Initial Additional signs and symptoms: n ORDERING SYSTEM PROVIDED DIAGNOSIS CODES: COMPARISON: 10/20/2022 FINDINGS: LUNGS: Minimal left basilar infiltrate VASCULATURE: No increased pulmonary vasculature. PLEURA: No pneumothorax, effusion, or pleural thickening. CARDIAC: No cardiomegaly or cardiac silhouette abnormality. MEDIASTINUM: No visible mass or adenopathy. Left pacemaker. Median sternotomy wires BONES: No fracture or visible bone lesion. OTHER: Left subclavian central venous catheter tip extends to the brachiocephalic confluence IMPRESSION: Minimal left basilar infiltrate Workstation ID: [id number] Dictated by: MAUREEN BARAJAS on MonOct 21, 2022 7:07:40 AM EST Transcribed by: MAUREEN BARAJAS on MonOct 21, 2022 7:07:40 AM EST Finalized by: MAUREEN BARAJAS on MonOct 21, 2022 7:07:40 AM EST [facility] Comment on above: Order Comment: Injur y/Trauma or Illness?:Illness/Other How long have you had these symptoms (acute/chronic)?:Acute Reason for exam?:chest pain History of cancer?:u Surgeries, chemotherapy, or radiation?:u Type of Exam?:Initial Additional signs and symptoms?:u US DUPLEX VENOUS LEGS BILATE ADon 10-20-2022 US DUPLEX VENOUS LEGS BILATERAL Patient Info Name: NAVEED PULIDO Age: 72 years : 1950 Gender: Male Exam Date: 10/20/2022 7:53 AM Patient Status: Inpatient Clinical Informatics Manager: Erum Huang, KATE, SHIREEN Referring Physician: LATRELL Couch; Indications M79.604 - Pain in right leg Procedure Description 83083 Duplex examination using B-mode, color and spectral Doppler of extremity veins including responses to compression and other maneuvers; complete bilateral study. Conclusions * No evidence of deep or superficial vein thrombosis in the right or left lower extremities. * Right great saphenous vein was harvested at the proximal thigh to mid calf for bypass. Risk Factors Patient has a history of hypertension, CAD, TIA and tobacco use-current. . 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 IMPRESSION: FINDINGS/ 1. Patient is status post sternotomy. There is a bipolar pacemaker with electrode leads in the right atrium, right ventricle. There is no interval change in position of left subclavian line. 2. The heart size remains borderline enlarged. The aorta is slightly tortuous. 3. There are some hazy densities at lung bases with some blunting of the costophrenic sulci compatible with small effusions, atelectatic changes. Remaining lungs appear clear. There is no congestive heart failure. 4. No definite pneumothorax. JON/milli Workstation ID: [id number] Dictated by: MICHEAL PACE on MonOct 20, 2022 8:13:24 AM EST Transcribed by: MITA WARD on MonOct 20, 2022 8:36:38 AM EST Finalized by: MICHEAL PACE on MonOct 20, 2022 8:37:43 AM EST [facility] Comment on above: Order Comment: Injur y/Trauma or Illness?:Illness/Other How long have you had these symptoms (acute/chronic)?:Chronic Reason for exam?:post open heart surgery History of cancer?:u Surgeries, chemotherapy, or radiation?:u Type of Exam?:Subsequent/Follow-up Additional signs and symptoms?:n XR CHEST PA/APon 10-19-2022 XR CHEST PA/AP EXAMINATION: XR CHEST PA/AP 10/19/2022 9:27 am HISTORY: ORDERING SYSTEM PROVIDED HISTORY: chest tube removal, TECHNOLOGIST PROVIDED HISTORY: Illness/Other Reason for exam: CHEST TUBE REMOVAL Surgery, RadiationHistory: Encounter Type: Initial Additional signs and symptoms: ORDERING SYSTEM PROVIDED DIAGNOSIS CODES: COMPARISON: Multiple same day radiographs FINDINGS: 1 views of the chest. Suboptimal lung volumes, resulting in vascular congestion. The lungs are clear without focal consolidation or pleural effusion. There is no pneumothorax. The cardiomediastinal silhouette is normal. There are changes from recent median sternotomy and CABG. Pacing device and its leads project in satisfactory position. IMPRESSION: Postoperative changes without pneumothorax status post chest tube removal. No acute cardiopulmonary abnormality. Workstation ID: [id number] Dictated by: OZZIE CLEARY on MonOct 19, 2022 11:08:59 AM EST Transcribed by: OZZIE CLEARY on MonOct 19, 2022 11:08:59 AM EST Finalized by: OZZIE CLEARY on MonOct 19, 2022 11:08:59 AM EST Normal [facility] Comment on above: Order Comment: Injur y/Trauma or Illness?:Illness/Other How long have you had these symptoms (acute/chronic)?:Acute Reason for exam?:chest pain History of cancer?:u Surgeries, chemotherapy, or radiation?:u Type of Exam?:Initial Additional signs and symptoms?:u XR CHEST PA/AP EXAMINATION: XR CHEST PA/AP 10/19/2022 4:14 am HISTORY: ORDERING SYSTEM PROVIDED HISTORY: post open heart surgery, TECHNOLOGIST PROVIDED HISTORY: Illness/Other Reason for exam: post open heart surgery Cancer History: u Surgery, RadiationHistory: u Encounter Type: Subsequent/Follow-up Additional signs and symptoms: u ORDERING SYSTEM PROVIDED DIAGNOSIS CODES: COMPARISON: 10/19/2022 at 12:44 a.m. FINDINGS: LUNGS: Stable left basilar chest tube. Minimal bibasilar infiltrates favoring atelectasis VASCULATURE: No increased pulmonary vasculature. PLEURA: No pneumothorax, effusion, or pleural thickening. CARDIAC: No cardiomegaly or cardiac silhouette abnormality. MEDIASTINUM: No visible mass or adenopathy. Median sternotomy wires. Left pacemaker BONES: No fracture or visible bone lesion. OTHER: Left subcu AVN central venous catheter the tip is difficult to ascertain IMPRESSION: Minimal bibasilar atelectasis Workstation ID: [id number] Dictated by: MAUREEN BARAJAS on MonOct 19, 2022 8:31:59 AM EST Transcribed by: MAUREEN BARAJAS on MonOct 19, 2022 8:31:59 AM EST Finalized by: MAUREEN BARAJAS on MonOct 19, 2022 8:31:59 AM EST [facility] Comment on above: Order Comment: Injur y/Trauma or Illness?:Illness/Other How long have you had these symptoms (acute/chronic)?:Acute Reason for exam?:post open heart surgery History of cancer?:u Surgeries, chemotherapy, or radiation?:u Type of Exam?:Subsequent/Follow-up Additional signs and symptoms?:u XR CHEST PA/AP EXAMINATION: XR CHEST PA/AP, 10/19/2022 HISTORY: CHEST PAIN COMPARISON: Chest x-ray, 10/18/2022. FINDINGS: Sternotomy wires, left subclavian central line, and left subclavian dual-chamber cardiac pacemaker are unchanged. A right IJ [place] catheter has been removed. The heart remains mildly enlarged. Pulmonary vascularity appears within normal limits. There is mild streaky bibasilar atelectasis. The lungs are otherwise grossly clear. No acute osseous abnormality is seen. IMPRESSION: 1. Mild streaky bibasilar atelectasis. The lungs are otherwise grossly clear. 2. Previously described tiny right apical pneumothorax appears to have resolved since yesterday's exam. Workstation ID: [id number] Dictated by: BEN LOCKETT on MonOct 19, 2022 12:50:01 AM EST Transcribed by: BEN LOCKETT on MonOct 19, 2022 12:50:01 AM EST Finalized by: BEN LOCKETT on MonOct 19, 2022 12:50:01 AM EST [facility] Comment on above: Order Comment: Injur y/Trauma or Illness?:Illness/Other How long have you had these symptoms (acute/chronic)?:Acute Reason for exam?:chest pain History of cancer?:u Surgeries, chemotherapy, or radiation?:u Type of Exam?:Initial Additional signs and symptoms?:u XR CHEST PA/APon 10-18-2022 XR CHEST PA/AP EXAMINATION: XR CHEST PA/AP HISTORY: ORDERING SYSTEM PROVIDED HISTORY: post open heart surgery, TECHNOLOGIST PROVIDED HISTORY: Illness/Other Reason for exam: post-open heart surgery 10/14 Cancer History: u Surgery, RadiationHistory: u Encounter Type: Subsequent/Follow-up Additional signs and symptoms: ORDERING SYSTEM PROVIDED DIAGNOSIS CODES: COMPARISON: Chest x-ray 10/17/2022 and 10/14/2022. FINDINGS: AP portable upright view. MEDIASTINUM: Cardiac silhouette is stable post recent sternotomy and CABG. Patient has been extubated. Enteric tube has been removed. Right IJ [place]-Dana catheter and mediastinal drain remain in place. LUNGS AND PLEURA: Resolving vascular congestion. Bilateral chest tubes remain in place. Tiny right apical pneumothorax measures 0.3 cm. OSSEOUS STRUCTURES AND SOFT TISSUES: No acute osseous abnormality. IMPRESSION: 1. Interval extubation with removal of enteric tube. Other lines and tubes are stable. 2. Resolving vascular congestion. 3. Tiny right 0.3 cm apical pneumothorax. VKR/cdr Workstation ID: [id number] Dictated by: CHINA RENEE on MonOct 18, 2022 8:59:03 AM EST Transcribed by: TIANNA TURCIOS on MonOct 19, 2022 1:51:16 PM EST Finalized by: CHINA RENEE on MonOct 19, 2022 2:52:26 PM EST Normal [facility] Comment on above: Order Comment: Injur y/Trauma or Illness?:Illness/Other How long have you had these symptoms (acute/chronic)?:Acute Reason for exam?:post-open heart surgery 10/14 History of cancer?:u Surgeries, chemotherapy, or radiation?:u Type of Exam?:Subsequent/Follow-up Additional signs and symptoms?: XR CHEST PA/APon 10-17-2022 XR CHEST PA/AP EXAMINATION: XR CHEST PA/AP 10/17/2022 12:03 PM HISTORY: ORDERING SYSTEM PROVIDED HISTORY: ET tube placement, TECHNOLOGIST PROVIDED HISTORY: Illness/Other Reason for exam: FRESH OPEN HEART Cancer History: u Surgery, RadiationHistory: u Encounter Type: Ongoing Additional signs and symptoms: . COMPARISON: 10/14/2022. TECHNIQUE: Single portable semierect view. FINDINGS: Interval postoperative changes of median sternotomy surgery. Endotracheal tube tip is above the josephine in satisfactory position. Enteric tube catheter tip terminates in the gastric fundus. Mediastinal drains are present. Right-sided IJ [place]-Dana catheter tip overlies the level of the right main pulmonary artery. Dual-lead left pectoral transvenous pacer in place. There is no pneumothorax or large pleural effusion. Paramediastinal and lower lung linearlike opacities compatible with atelectasis. No focal airspace consolidation. IMPRESSION: 1. Recent median sternotomy surgery with the lines and tubes in expected positions as above. 2. Paramediastinal and basilar strandlike opacities consistent with atelectasis. 3. No pneumothorax. No large pleural effusion. [employer] Workstation ID: [id number] Dictated by: VIDHI CHRISTENSEN on MonOct 17, 2022 12:42:43 PM EST Transcribed by: KENYATTA GUTIERREZ on MonOct 17, 2022 12:43:43 PM EST Finalized by: VIDHI CHRISTENSEN on MonOct 17, 2022 2:07:46 PM EST Normal [facility] Comment on above: Order Comment: Injur y/Trauma or Illness?:Illness/Other How long have you had these symptoms (acute/chronic)?:Acute Reason for exam?:chest pain History of cancer?:u Surgeries, chemotherapy, or radiation?:u Type of Exam?:Initial Additional signs and symptoms?:u LEFT HEART CATHon 10-14-2022 LEFT HEART CATH This is a summary report. The complete report is available in the patient's medical record. If you cannot access the medical record, please contact the sending organization for a detailed fax or copy. 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 Cx: Moderate with mild disease RCA: Large with mild disease. LV: EF 60% Recommendations: CABG for LMT disease of 80%. Coronary Findings Diagnostic Dominance: Right Left Main: The LMT is large and divides into LAD, Ramus and Cx. The distal LMT is stenosed 80% Mid LM to Dist LM lesion is 80% stenosed. Left Anterior Descending: The vessel was visualized by angiography, is moderate in size and is angiographically normal. The LAD is a very large vessel. The proximal portion is diseased 75%. In the junction of proximal and mid LAD, there is a 95% lesion. Prox LAD to Mid LAD lesion is 75% stenosed. Mid LAD lesion is 95% stenosed. Left Circumflex: The Cx gives rise to a Ramus and small OM. The Ramus and Cx have mild plaque disease. Right Coronary Artery: The RCA is very large and dominant with mild irregularities present. Intervention No interventions have been documented. Normal [facility] US ANKLE/BRACHIAL INDICES EX TREMITY LIMITEDon 10-14-2022 US ANKLE/BRACHIAL INDICES EXTREMITY LIMITED Patient Info Name: NAVEED PULIDO Age: 72 years : 1950 Gender: Male Exam Date: 10/14/2022 12:40 PM Patient Status: Outpatient Clinical Informatics Manager: OLEKSANDR RUTLEDGE RVT Referring Physician: RABIA SAMS; Indications - pending CABG Z01.810 - Encounter for preprocedural cardiovascular examination Procedure Description 46271 Limited bilateral noninvasive physiologic studies of upper or lower extremity arteries with bidirectional Doppler/PVR waveform analysis at 1-2 levels. Conclusions * Right and left ankle brachial indices are normal. Right MARINA is 1.20. Left MARINA is 1.17. * No evidence of small vessel disease at the transmetatarsal level in both feet. * Right and left toe brachial indices are normal. . Doppler Rt Posterior Tibial: Triphasic Rt Dorsalis Pedis: Triphasic Lt Posterior Tibial: Triphasic Lt Dorsalis Pedis: Triphasic PVR Rt Ankle: Normal Lt Ankle: Normal Rt Digit: Normal Lt Digit: Normal Segmental BP Findings No blood pressure obtained in right arm due to recent radial artery heart cath. Rt Posterior Tibial: 190 Rt Dorsalis Pedis: 177 Rt Digit: 123 1.20 1.12 0.78 Lt Brachial: 158 Lt Posterior Tibial: 178 Lt Dorsalis Pedis: 185 Lt Digit: 123 1.13 1.17 0.78 Risk Factors Patient has a history of hypertension, CAD, tobacco use-previous and TIA. . Report Signatures Finalized by Catie Das MD on 10/14/2022 03:22 PM Normal [facility] US DOPPLER CAROTIDon 023 US DOPPLER CAROTID Patient Info Name: NAVEED PULIDO Age: 72 years : 1950 Gender: Male Exam Date: 10/14/2022 1:15 PM Patient Status: Outpatient Clinical Informatics Manager: Jovana Brice RVT Referring Physician: REKHA Cartagena; Indications - cabg Z01.818 - Encounter for other preprocedural examination Procedure Description 44113 Duplex examination using B-mode, color and spectral Doppler of extracranial arteries; complete bilateral study. NASCET criteria is used when performing imaging correlation with carotid duplex interpretation. Conclusions * Right. * Less than 50% stenosis in the right internal carotid artery. * Right vertebral artery is patent with antegrade flow. * No evidence of stenosis in the right common carotid, external carotid and subclavian arteries. * Left. * Less than 50% stenosis in the left internal carotid artery. * Left vertebral artery is patent with antegrade flow. * No evidence of stenosis in the left common carotid, external carotid and subclavian arteries. Measurements ------- Name Value ------- Right PSV ------- Right Prox CCA PSV 100 cm/s Right Mid CCA PSV 90 cm/s Right Distal CCA PSV 67 cm/s Right Prox ICA PSV 49 cm/s Right Mid ICA PSV 78 cm/s Right Distal ICA PSV 85 cm/s Right ECA PSV 79 cm/s Right Vert PSV 45 cm/s BC PSV 85 cm/s Right Prox SCA PSV 97 cm/s Rt ICA/CCA Ratio 0.7 Measurements ------- Name Value ------- Right EDV ------- Right Prox CCA EDV 27 cm/s Right Mid CCA EDV 29 cm/s Right Distal CCA EDV 25 cm/s Right Prox ICA EDV 16 cm/s Right Mid ICA EDV 37 cm/s Right Distal ICA EDV 32 cm/s Right ECA EDV 15 cm/s Right Vert EDV 16 cm/s BC EDV 15 cm/s Right Prox SCA EDV 7 cm/s Measurements ------- Name Value ------- Left PSV ------- Left Prox CCA PSV 151 cm/s Left Mid CCA PSV 71 cm/s Left Distal CCA PSV 77 cm/s Left Prox ICA PSV 83 cm/s Left Mid ICA PSV 82 cm/s Left Distal ICA PSV 69 cm/s Left ECA PSV 45 cm/s Left Vert PSV 51 cm/s Left Prox SCA PSV 99 cm/s Lt ICA/CCA Ratio 1.1 Measurements ------- Name Value ------- Left EDV ------- Left Prox CCA EDV 39 cm/s Left Mid CCA EDV 22 cm/s Left Distal CCA EDV 27 cm/s Left Prox ICA EDV 32 cm/s Left Mid ICA EDV 34 cm/s Left Distal ICA EDV 29 cm/s Left ECA EDV 8 cm/s Left Vert EDV 21 cm/s Left Prox SCA EDV 0 cm/s Right Findings * No plaque noted in the right common carotid artery. * Heterogeneous plaque noted in the right internal carotid artery. * Heterogeneous plaque noted in the right external carotid artery. Left Findings * No plaque noted in the left common carotid artery. * No plaque noted in the left external carotid artery. * Intimal thickening plaque noted in the left internal carotid artery. Risk Factors Patient has a history of hypertension and TIA. . Report Signatures Finalized by Chu Awad MD, RPVI on 10/14/2022 03:10 PM [facility] US SAPHENOUS VEIN MAPon -2 US SAPHENOUS VEIN MAP Patient Info Name: NAVEED PULIDO Age: 72 years : 1950 Gender: Male Exam Date: 10/14/2022 1:33 PM Patient Status: Outpatient Clinical Informatics Manager: Jovana Brice RVT Referring Physician: BERNADINE Crespo; Indications - pending CABG Z01.818 - Encounter for other preprocedural examination Procedure Description 51342 Duplex examination using B-mode, color and spectral Doppler of extremity veins including responses to compression and other maneuvers; complete bilateral study. Conclusions * Right. * Right great saphenous vein is patent with measurements as listed. * Left. * Left great saphenous vein is patent with measurements as listed. * The left great saphenous vein exits the fascia at the knee. Measurements ------- Name Value ------- Right AP ------- Right SFJ 4.3 mm Right GSV Prox Thigh 4.6 mm Right GSV Mid Thigh 4.0 mm Right GSV Distal Thigh 2.1 mm Right GSV Knee 2.3 mm Right GSV Prox Calf 1.9 mm Right GSV Mid Calf 2.6 mm Right GSV Distal Calf 2.2 mm Measurements ------- Name Value ------- Left AP ------- Left SFJ 4.1 mm Left GSV Prox Thigh 3.4 mm Left GSV Mid Thigh 2.6 mm Left GSV Distal Thigh 2.7 mm Left GSV Knee 2.8 mm Left GSV Prox Calf 1.7 mm Left GSV Mid Calf 1.3 mm Left GSV Distal Calf 1.7 mm Risk Factors Patient has a history of hypertension and TIA. . Report Signatures Finalized by Chu Awad MD, RPVI on 10/14/2022 03:12 PM [facility] XR CHEST AP/PA AND LATon XR CHEST AP/PA AND LAT EXAMINATION: XR CHEST AP/PA AND LAT 10/14/2022 2:28 pm HISTORY: ORDERING SYSTEM PROVIDED HISTORY: pre-op, TECHNOLOGIST PROVIDED HISTORY: Illness/Other Reason for exam: pre-op, sob Cancer History: u Surgery, RadiationHistory: u Encounter Type: Initial Additional signs and symptoms: . ORDERING SYSTEM PROVIDED DIAGNOSIS CODES: COMPARISON: None. FINDINGS: Left-sided dual lead ICD projecting over the right atrium and right ventricle. Normal cardiomediastinal contours. Clear lungs. No pleural effusion or pneumothorax. Chronic appearing wedge compression deformities in the midthoracic spine.. IMPRESSION: 1. No acute cardiopulmonary process. 2. Wedge deformities in the midthoracic spine, likely chronic. Workstation ID: [id number] Dictated by: PRASANTH FORTE on MonOct 14, 2022 3:35:53 PM EST Transcribed by: PRASANTH FORTE on MonOct 14, 2022 3:35:53 PM EST Finalized by: PRASANTH FORTE on MonOct 14, 2022 3:35:53 PM EST Normal [facility] Comment on above: Order Comment: Injur y/Trauma or Illness?:Illness/Other How long have you had these symptoms (acute/chronic)?:Acute Reason for exam?:pre-op, sob History of cancer?:u Surgeries, chemotherapy, or radiation?:u Type of Exam?:Initial Additional signs and symptoms?:. Basic Metabolic Panelon 09-25 Anion gap [Moles/Vol] 8 mmol/L Low 9 - 17 mmol/L [facility] Calcium [Mass/Vol] 9.4 mg/dL 8.6 - 10. 4 mg/dL [facility] Chloride [Moles/Vol] 107 mmol/L 98 - 10 7 mmol/L [facility] CO2 [Moles/Vol] 27 mmol/L 20 - 31 mmol/L [facility] Creatinine [Mass/Vol] 1.03 mg/dL 0.70 - 1.20 mg/dL [facility] GFR/1.73 sq M.predicted MDRD (S/P/Bld) [Vol rate/Area] - PINF [facility] Comment on above: Effective Jun 27, 2022 These results are not intended for use in patients <18 years of age. eGFR results are calculated without a race factor using the 2020 CKD-EPI equation. Careful clinical correlation is recommended, particularly when comparing to results calculated using previous equations. The CKD-EPI equation is less accurate in patients with extremes of muscle mass, extra-renal metabolism of creatine, excessive creatine ingestion, or following therapy that affects renal tubular secretion. Glucose [Mass/Vol] 93 mg/dL 70 - 99 mg/dL [facility] Interpretation and review of laboratory results Abnormal [facility] Potassium [Moles/Vol] 4.2 mmol/L 3.7 - 5.3 mmol/L [facility] Sodium [Moles/Vol] 142 mmol/L 135 - 144 mmol/L [facility] Urea nitrogen (BldV) [Mass/Vol] 21 mg/dL 8 - 23 mg/dL [facility] Urea nitrogen/Creatinine (Bld) [Mass ratio] 20 9 - 20 [facility] Basic Metabolic Profon 10-06 Anion gap [Moles/Vol] 8 mmol/L Low 9-17 [facility] Comment on above: Performed By: #### B MP, CBC ####[facility] [id number] [place] [address] Lab Director: Maureen Gonsalves MD BUN/CRE Ratio 20 Normal 9-20 [facility] Comment on above: Performed By: #### B LUCILLE, CBC ####[facility] [id number] [place] [address] lab Director: Maureen Gonsalves MD Calcium [Mass/Vol] 9.4 mg/dL Normal 8.6-10.4 [facility] Comment on above: Performed By: #### B LUCILLE, CBC ####[facility] [id number] [place] [address] Lab Director: Maureen Gonsalves MD Chloride [Moles/Vol] 107 mmol/L Normal 98-107 [facility] Comment on above: Performed By: #### B LUCILLE, CBC ####[facility] [id number] [place] [address] Lab Director: Maureen Gonsalves MD CO2 [Moles/Vol] 27 mmol/L Normal 20-31 [facility] Comment on above: Performed By: #### B MP, CBC ####[facility] [id number] [place] [address] Lab Director: Maureen Gonsalves MD Creatinine [Mass/Vol] 1.03 mg/dL Normal 0.70-1.20 [facility] Comment on above: Performed By: #### B MP, CBC ####[facility] [id number] [place] [address] lab Director: Maureen Gonsalves MD GFR/1.73 sq M.predicted among non-blacks MDRD (S/P/Bld) [Vol rate/Area] mL/min/{1.73_m2} Normal >60 [facility] Comment on above: Result Comment: Effective Jun 27, 2022 These results are not intended for use in patients <18 years of age. eGFR results are calculated without a race factor using the 2020 CKD-EPI equation. Careful clinical correlation is recommended, particularly when comparing to results calculated using previous equations. The CKD-EPI equation is less accurate in patients with extremes of muscle mass, extra-renal metabolism of creatine, excessive creatine ingestion, or following therapy that affects renal tubular secretion. Performed By: #### B LUCILLE, CBC ####[facility] [address] [place] [address] Lab Director: Maureen Gonsalves MD Glucose [Mass/Vol] 93 mg/dL Normal 70-99 [facility] Comment on above: Performed By: #### B LUCILLE, CBC ####[facility] [id number] [place] [address] Lab Director: Maureen Gonsalves MD Potassium [Moles/Vol] 4.2 mmol/L Normal 3.7-5.3 [facility] Comment on above: Performed By: #### B LUCILLE, CBC ####[facility] [id number] [place] [address] Lab Director: Maureen Gonsalves MD Sodium [Moles/Vol] 142 mmol/L Normal 135-144 [facility] Comment on above: Performed By: #### B MP, CBC ####[facility] [id number] [place] [address] Lab Director: Maureen Gonsalves MD Urea nitrogen [Mass/Vol] 21 mg/dL Normal 8-23 [facility] Comment on above: Performed By: #### B MP, CBC ####[facility] [id number] [place] [address] Lab Director: Maureen Gonsalves MD CBCon 10-06-2022 Erythrocyte distribution width (RBC) [Ratio] 13.1 % Normal 12.1-15.2 [facility] Comment on above: Performed By: #### B MP, CBC ####[facility] [id number] [place] [address] Lab Director: Muareen Gonsalves MD Hematocrit (Bld) [Volume fraction] 44.4 % Normal 41-53 [facility] Comment on above: Performed By: #### B MP, CBC ####[facility] [id number] [place] [address] Lab Director: Maureen Gonsalves MD Hemoglobin (Bld) [Mass/Vol] 15.1 g/dL Normal 13.5-17.5 [facility] Comment on above: Performed By: #### B MP, CBC ####[facility] [id number] [place] [address] Lab Director: Maureen Gonsalves MD MCH (RBC) [Entitic mass] 31.5 pg Normal 26-34 [facility] Comment on above: Performed By: #### B MP, CBC ####[facility] [id number] [place], [place] [phone] Director: Maureen Gonsalves MD MCHC (RBC) [Mass/Vol] 34.2 g/dL Normal 31-37 [facility] Comment on above: Performed By: #### B MP, CBC ####[facility] [id number] [place], [place] [phone] Director: Maureen Gonsalves MD MCV (RBC) [Entitic vol] 92.2 fL Normal 80-100 [facility] Comment on above: Performed By: #### B MP, CBC ####[facility] [id number] [place] [address] Lab Director: Maureen Gonsalves MD Platelets (Bld) [#/Vol] 230 10*3/uL Normal 140-450 [facility] Comment on above: Performed By: #### B MP, CBC ####[facility] [id number] [place], [place] [id number] Lab Director: Maureen Gonsalves MD RBC (Bld) [#/Vol] 4.81 10*6/uL Normal 4.5-5.9 [facility] Comment on above: Performed By: #### B MP, CBC ####[facility] [id number] [place], [place] [id number] Lab Director: Maureen Gonsalves MD WBC (Bld) [#/Vol] 6.6 10*3/uL Normal 3.5-11.0 [facility] Comment on above: Performed By: #### B MP, CBC ####[facility] [address] [place], [place] [id number] Lab Director: Maureen Gonsalves MD Hematocrit (Bld) [Volume fraction] 44.4 % 41 - 53 % [facility] Hemoglobin (Bld) [Mass/Vol] 15.1 g/dL 13.5 - 17.5 g/dL [facility] MCH (RBC) [Entitic mass] 31.5 pg 26 - [address] [facility] MCHC (RBC) [Mass/Vol] 34.2 g/dL 31 - 37 g/dL [facility] MCV (RBC) [Entitic vol] 92.2 fL 80 - [address] [facility] Platelet distribution width (Bld) [Ratio] 13.1 % 12.1 - 15.2 % [facility] Platelets (Bld) [#/Vol] 230 10*3/uL [facility] RBC (Bld) [#/Vol] 4.81 10*6/uL 4.5 - 5.9 m/uL [facility] WBC (Bld) [#/Vol] 6.6 10*3/uL [facility] EKG Rhythm Stripon 3 [facility] XR CHEST (2 VW)on 10-06-2022 XR CHEST (2 VW) EXAM: XR CHEST (2 VW ) 10/06/2022 5:35 AM EST [facility] CLINICAL STATEMENT: Reason for exam:->ppm COMPARISON: 07/19/2022 TECHNIQUE: Single AP radiograph of the chest is submitted. FINDINGS: There is no acute airspace disease. The cardiac silhouette is normal. Left-sided dual-chamber pacer. The costophrenic recesses are sharp. No pneumothorax. The bony elements are unremarkable. IMPRESSION: No acute cardiopulmonary process. FOLLOW-UP: Follow-up as clinically indicated. Interpreted by: Ranjit Torres MD Signed by: Ranjit Torres MD 10/06/22 Final result Normal [facility] No acute cardiopulmonary process. FOLLOW-UP: Follow-up as clinically indicated. [facility] EXAM: XR CHEST (2 VW ) 10/06/2022 5:35 AM EST [facility] CLINICAL STATEMENT: Reason for exam:->ppm COMPARISON: 07/19/2022 TECHNIQUE: Single AP radiograph of the chest is submitted. FINDINGS: There is no acute airspace disease. The cardiac silhouette is normal. Left-sided dual-chamber pacer. The costophrenic recesses are sharp. No pneumothorax. The bony elements are unremarkable. [facility] Ranjit Torres MD - 10/06/2022 EXAM: XR CHEST (2 VW) 10/06/2022 5:35 AM EST W CLINICAL STATEMENT: Reason for exam:->ppm COMPARISON: 07/19/2022 TECHNIQUE: Single AP radiograph of the chest is submitted. FINDINGS: There is no acute airspace disease. The cardiac silhouette is normal. Left-sided dual-chamber pacer. The costophrenic recesses are sharp. No pneumothorax. The bony elements are unremarkable. IMPRESSION: No acute cardiopulmonary process. FOLLOW-UP: Follow-up as clinically indicated. [employer] Phone: Radiology Study observation (narrative) [employer] Phone: XR CHEST (2 VW)Ordered By: Irineo cooper Said on 10-06-2022 [employer] Phone: CARDIAC CATHETER[place] [id number] CARDIAC CATHETERIZATION PATIENT NAME: NAVEED PULIDO : 1950 MED REC NO: [id number] ROOM: ACCOUNT NO: [id number] ADMIT DATE: 10/05/2022 PROVIDER: Shanon Da Silva MD DATE OF PROCEDURE: 10/05/2022 NAME OF PROCEDURE: DDD permanent pacemaker. INDICATION: Sick sinus syndrome. PROCEDURE: We prepped and draped in the usual manner for a pacemaker in the left subclavian region in our surgical suite. After he was under deep sedation, I used Marcaine for local analgesia. I then made an incision just below the left clavicle. I carefully dissected a pocket under the skin. We cauterized any bleeding. We then irrigated with an Ancef solution and placed an Ancef gauze within the pocket. I then cannulated the left subclavian vein twice and placed a guidewire each time. We placed a sheath over one guidewire and ventricular lead into the right ventricle. We found good threshold and sensing and I screwed it in and anchored with 1-0 silk. We then placed a sheath over the second wire and placed the lead in the right atrium. This was screwed in place and sutured with 1 silk. We then irrigated the pocket again carefully to cauterize any bleeding. We attached the leads to the pacemaker and placed it within the pocket. We anchored the pacemaker with 1-0 silk. We closed with 2-0 Vicryl and subcutaneous fascia with 4-0 Vicryl. Steri-Strips were applied. There were no complications. He left in good condition. Implanted device is a Medtronic [id number] Francesca XT DR MRI-compatible pacemaker, model number [id number], serial number [id number], implanted 10/05/2022. Right atrial lead is a model number [id number], serial number [id number] in the right atrial appendage. Right ventricular lead is a [id number], 52 cm, serial number [id number] in the right ventricular apex. Thresholds, right atrium 0.4 milliseconds, 0.75 volts, impedance 512 with a P wave of 2.0. Ventricular threshold was 0.4 milliseconds at 0.625 volts, impedance 703 with an R wave of 10.125. Final settings, lower rate 60, upper rate 130. IMPRESSION: Successful implantation of DDD pacemaker for sick sinus syndrome. SHANON DA SILVA MD [email or web address] Doc#: [id number] CC: Jose Lao [facility] POLYMER ENGINEER REPORTon 10-05-2022 Taj Da Silva MD - 10/05/2022 10:49 [place] [id number] CARDIAC CATHETERIZATION PATIENT NAME: NAVEED PULIDO : 1950 MED REC NO: [id number] ROOM: ACCOUNT NO: [id number] ADMIT DATE: 10/05/2022 PROVIDER: Shanon Da Silva MD DATE OF PROCEDURE: 10/05/2022 NAME OF PROCEDURE: DDD permanent pacemaker. INDICATION: Sick sinus syndrome. PROCEDURE: We prepped and draped in the usual manner for a pacemaker in the left subclavian region in our surgical suite. After he was under deep sedation, I used Marcaine for local analgesia. I then made an incision just below the left clavicle. I carefully dissected a pocket under the skin. We cauterized any bleeding. We then irrigated with an Ancef solution and placed an Ancef gauze within the pocket. I then cannulated the left subclavian vein twice and placed a guidewire each time. We placed a sheath over one guidewire and ventricular lead into the right ventricle. We found good threshold and sensing and I screwed it in and anchored with 1-0 silk. We then placed a sheath over the second wire and placed the lead in the right atrium. This was screwed in place and sutured with 1 silk. We then irrigated the pocket again carefully to cauterize any bleeding. We attached the leads to the pacemaker and placed it within the pocket. We anchored the pacemaker with 1-0 silk. We closed with 2-0 Vicryl and subcutaneous fascia with 4-0 Vicryl. Steri-Strips were applied. There were no complications. He left in good condition. Implanted device is a Medtronic W1DR01 Francesca XT DR MRI-compatible pacemaker, model number W1DR01, serial number [id number], implanted 10/05/2022. Right atrial lead is a model number 251666, serial number [id number] in the right atrial appendage. Right ventricular lead is a 223966, 52 cm, serial number [id number] in the right ventricular apex. Thresholds, right atrium 0.4 milliseconds, 0.75 volts, impedance 512 with a P wave of 2.0. Ventricular threshold was 0.4 milliseconds at 0.625 volts, impedance 703 with an R wave of 10.125. Final settings, lower rate 60, upper rate 130. IMPRESSION: Successful implantation of DDD pacemaker for sick sinus syndrome. SHANON DA SILVA MD [id number] Doc#: [id number] CC: Jose Lao [facility] Work Phone: [facility] Work Phone: EKG Rhythm Stripon 3 [facility] [employer] LAB [facility] FL LESS THAN 1 HOURon 2022 FL LESS THAN 1 HOUR EXAMINATION: FL LESS THAN 1 HOUR HISTORY: Reason for exam:->pacemaker in OR COMPARISON: 07/19/2022 chest. FLUOROSCOPY TIME: Fluoro time measures 209.3 seconds and 4 spot images were obtained. IMPRESSION: FINDINGS/IMPRESSION: Route Aide, Dr. Da Silva utilized the C-arm during dual-lead pacer placement. Interpreted by: Eleno Tucker Jr., MD Signed by: Eleno Tucker Jr., MD 10/05/22 Final result Normal [facility] FINDINGS/IMPRESSION: Route Aide, Dr. Da Silva utilized the C-arm during dual-lead pacer placement. [facility] EXAMINATION: FL LESS THAN 1 HOUR HISTORY: Reason for exam:->pacemaker in OR COMPARISON: 07/19/2022 chest. FLUOROSCOPY TIME: Fluoro time measures 209.3 seconds and 4 spot images were obtained. [facility] Eleno Tucker Jr., MD - 10/05/2022 EXAMINATION: FL LESS THAN 1 HOUR HISTORY: Reason for exam:->pacemaker in OR COMPARISON: 07/19/2022 chest. FLUOROSCOPY TIME: Fluoro time measures 209.3 seconds and 4 spot images were obtained. IMPRESSION: FINDINGS/IMPRESSION: Route Aide, Dr. Da Silva utilized the C-arm during dual-lead pacer placement. [employer] Phone: Radiology Study observation (narrative) [employer] Phone: FL LESS THAN 1 HOUROrdered B y: Eleno Tucker on 10-05-2022 [employer] Phone: XR CHEST PORTABLEon 10-05-19 XR CHEST PORTABLE EXAM: XR CHEST PORTABLE HISTORY: Reason for exam:->Pacemaker placement and rule out pneumothorax COMPARISON: Spot films earlier same date during pacemaker insertion, chest 07/19/2022. TECHNIQUE: 1052 hours. IMPRESSION: FINDINGS/IMPRESSION: 1. Dual-lead pacemaker in anatomic position with generator over left chest. 2. Lungs clear, with no pneumothorax. 3. Heart size normal. Interpreted by: Eleno Tucker Jr., MD Signed by: Eleno Tucker Jr., MD 10/05/22 Final result Normal [facility] FINDINGS/IMPRESSION: 1. Dual-lead pacemaker in anatomic position with generator over left chest. 2. Lungs clear, with no pneumothorax. 3. Heart size normal. [facility] EXAM: XR CHEST PORTABLE HISTORY: Reason for exam:->Pacemaker placement and rule out pneumothorax COMPARISON: Spot films earlier same date during pacemaker insertion, chest 07/19/2022. TECHNIQUE: 1052 hours. [facility] Eleno Tucker Jr., MD - 10/05/2022 EXAM: XR CHEST PORTABLE HISTORY: Reason for exam:->Pacemaker placement and rule out pneumothorax COMPARISON: Spot films earlier same date during pacemaker insertion, chest 07/19/2022. TECHNIQUE: 1052 hours. IMPRESSION: FINDINGS/IMPRESSION: 1. Dual-lead pacemaker in anatomic position with generator over left chest. 2. Lungs clear, with no pneumothorax. 3. Heart size normal. [employer] Phone: [employer] Phone: Radiology Study observation (narrative) [employer] Phone: CARDIAC STRESS TESTon 2021 [place] [address] CARDIAC STRESS TEST PATIENT NAME: NAVEED PULIDO : 1950 MED REC NO: [id number] ROOM: ACCOUNT NO: [id number] ADMIT DATE: 09/06/2022 PROVIDER: Nicole Nj DATE OF STUDY: 09/06/2022 Cardiovascular Diagnostics Department Ordering Provider: Shanon Da Silva MD Primary Care Provider: Jose Lao MD Interpreting Physician: Nicole Nj MD MYOCARDIAL PERFUSION STRESS IMAGING The stress ECG results are reported separately. NUCLEAR IMAGING RESULTS: The overall quality of the study is good. Moderate attenuation artifact was seen. There is no evidence of abnormal lung uptake. Additionally, the right ventricle appears normal. The left ventricular cavity is noted to be normal in size on stress images. There is no evidence of transient ischemic dilatation (TID) of the left ventricle. Gated SPECT imaging reveals normal myocardial thickening and wall motion with a calculated left ventricular ejection fraction (EF) of 62%. The rest images demonstrated a moderate perfusion abnormality of mild/moderate intensity in the inferolateral, inferior, and inferoseptal region(s) which is most likely due to artifact. On stress imaging, a small perfusion abnormality of mild intensity was noted in the inferolateral region(s) which is most likely due to artifact. IMPRESSION: 1. Most likely normal myocardial perfusion imaging with soft tissue artifact but without evidence of significant myocardial ischemia or infarction. 2. Global left ventricular systolic function was normal without regional wall motion abnormalities. Overall these results are most consistent with a low risk for significant coronary artery disease. Although the patient's results were not completely normal, unless clinical suspicion for significant ongoing coronary artery ischemia is high, I would not suggest pursuing additional testing by coronary angiography. NICOLE NJ BUTCH/GALINA_MONALISAIT Doc#: Unknown CC: Jose Da Silva MD Normal [facility] [place] [address] CARDIAC STRESS TEST PATIENT NAME: NAVEED PULIDO : 1950 MED REC NO: [id number] ROOM: ACCOUNT NO: [id number] ADMIT DATE: 09/06/2022 PROVIDER: Shanon Da Silva MD DATE OF STUDY: 09/06/2022 TREADMILL MYOVIEW STRESS TEST INDICATION: Abnormal EKG. He exercised 5 minutes on accelerated Erik protocol. His peak heart rate was 94 beats per minute. He had no chest pain. Reason for termination was fatigue. He has chronotropic insufficiency and reached a heart rate of 94 at peak exercise. Because we were not at 85% of maximum predicted heart rate, we switched to a Lexiscan stress test. LEXISCAN CARDIOLITE STRESS TEST: IMPRESSION: 1. We gave 0.4 mg of Lexiscan intravenously. 2. This was followed in 20 seconds by Cardiolite infusion. 3. There was no chest pain. 4. There was no ST depression. 5. It was an overall negative Lexiscan stress test. 6. Cardiolite to follow. SHANON DA SILVA MD [id number] Doc#: [id number] CC: Normal [facility] Lipid Profileon 09-07-2022 Cholesterol [Mass/Vol] 163 mg/dL Normal <200 [facility] Comment on above: Result Comment: Cholesterol Guidelines: <200 Desirable 200-240 Borderline >240 Undesirable Performed By: #### C MALORIE TREJO ZFAST ####[facility] [address] [place], [place] [address])[phone] Director: Maureen Gonsalves MD#### LIPR ####[address] [place] [address] Lab Director: Malick Ballard MD Cholesterol in HDL [Mass/Vol] 45 mg/dL Normal >40 [facility] Comment on above: Result Comment: HDL Guidelines: <40 Undesirable 40-59 Borderline >59 Desirable Performed By: #### C MALORIE TREJO ZFAST ####[facility] Kfu[address] [place], [place] [address])[phone] Director: Maureen Gonsalves MD#### LIPR ####[address] [address])[phone] Director: Malick Ballard MD Cholesterol in LDL [Mass/Vol] 93 mg/dL Normal 0-130 [facility] Comment on above: Result Comment: LDL Guidelines: <100 Desirable 100-129 Near to/above Desirable 130-159 Borderline >159 Undesirable Direct (measured) LDL and calculated LDL are not interchangeable tests. Performed By: #### C MALORIE TREJO ZFAST ####[facility] [address] [place], [place] [address])[phone] Director: Maureen Gonsalves MD#### LIPR ####[address] [place] [address] Lab Director: Malick Ballard MD Cholesterol.total/Cho lesterol in HDL [Mass ratio] 3.6 {ratio} Normal <5 [facility] Comment on above: Performed By: #### C MALORIE TREJO, ZFAST ####[facility] [address]gv[address] [place], [place] [address])[phone] Director: Maureen Gonsalves MD#### LIPR ####[facility] [address] [place], [place] [phone] Lab Director: Malick Ballard MD Triglyceride [Mass/Vol] 125 mg/dL Normal <150 [facility] Comment on above: Result Comment: Triglyceride Guidelines: <150 Desirable 150-199 Borderline 200-499 High >499 Very high Based on AHA Guidelines for fasting triglyceride, June 2012. Performed By: #### C DP, CP, ZFAST ####[facility] Fmq68[address] [place], [place] [phone] lab Director: Maureen Gonsalves MD#### LIPR ####[facility] [address] [place], [place] [phone] lab Director: Malick Ballard MD CBC with Auto Differentialon 09-06-2022 Absolute Eos # 0.30 BLY [facility] Absolute Lymph # 1.[address] [facility] URS [facility] Absolute [place] # 0.50 [facility] Basophils (Bld) [#/Vol] 0.10 10*3/uL [facility] Basophils/100 WBC (Bld) 1 % 0 - 2 % [facility] Differential Type YES [facility] Eosinophils/100 WBC (Bld) 6 % High 0 - 5 % [facility] Hematocrit (Bld) [Volume fraction] 46.1 % 41 - 53 % [facility] Hemoglobin (Bld) [Mass/Vol] 15.5 g/dL 13.5 - 17.5 g/dL [facility] Interpretation and review of laboratory results Abnormal [facility] Lymphocytes/100 WBC (Bld) 31 % 13 - 44 % [facility] MCH (RBC) [Entitic mass] 31.0 pg 26 - [address] [facility] MCHC (RBC) [Mass/Vol] 33.6 g/dL 31 - 37 g/dL B ON [facility] MCV (RBC) [Entitic vol] 92.4 fL 80 - [address] [facility] Monocytes/100 WBC (Bld) 9 % 5 - 9 % [facility] Platelet distribution width (Bld) [Ratio] 12.8 % 12.1 - 15.2 % [facility] Platelets (Bld) [#/Vol] 286 10*3/uL [facility] RBC (Bld) [#/Vol] 4.99 10*6/uL 4.5 - 5.9 m/uL [facility] Segmented neutrophils/100 WBC (Bld) 53 % 39 - 75 % [facility] Segs Absolute 3.[address] [facility] WBC (Bld) [#/Vol] 5.7 10*3/uL [facility] CBC with Diffon 09-06-2022 Abs. Basophil 0.10 k/uL Normal 0.0-0.2 [facility] Comment on above: Performed By: #### C MALORIE TREJO ZFAST ####[facility] [address]qb[address] [place] [address] Lab Director: Maureen Gonsalves MD#### LIPR ####[address] [place] [address] Lab Director: Malick Ballard MD Abs.Neutrophil (Seg) 3.00 k/uL Normal 2.1-6.5 [facility] Comment on above: Performed By: #### C MALORIE TREJO ZFAST ####[facility] Xby[address] [place] [address] Lab Director: Maureen Gonsalves MD#### LIPR ####[facility] [place] [address] Lab Director: Malick Ballard MD Auto Diff Performed YES Normal [facility] Comment on above: Performed By: #### C MALORIE TREJO, ZFAST ####[facility] Fdu[address] [place] [address] Lab Director: Maureen Gonsalves MD#### LIPR ####[address] [place] [address] Lab Director: Malick Ballard MD Basophils/100 WBC (Bld) 1 % Normal 0-2 [facility] Comment on above: Performed By: #### C MALORIE TREJO, ZFAST ####[facility] Nnw57[address] [place] [address] Lab Director: Maureen Gonsalves MD#### LIPR ####[facility] [place] [address] Lab Director: Malick Ballard MD Eosinophils (Bld) [#/Vol] 0.30 10*3/uL Normal 0.0-0.4 [facility] Comment on above: Performed By: #### C MALORIE TREJO ZFAST ####[facility] [address] [place] [address] Lab Director: Maureen Gonsalves MD#### LIPR ####[address] [address] Lab Director: Malick Ballard MD Eosinophils/100 WBC (Bld) 6 % High 0-5 [facility] Comment on above: Performed By: #### C MALORIE TREJO ZFAST ####[facility] Lpo[address]10 [place] [address] Lab Director: Maureen Gonsalves MD#### LIPR ####[facility] [place] [address] Lab Director: Malick Ballard MD Erythrocyte distribution width (RBC) [Ratio] 12.8 % Normal 12.1-15.2 [facility] Comment on above: Performed By: #### C MALORIE TREJO, ZFAST ####[facility] Fgu[address] [place], [place] [address])[phone] Director: Maureen Gonsalves MD#### LIPR ####[facility] [place] [address] Lab Director: Malick Ballard MD Hematocrit (Bld) [Volume fraction] 46.1 % Normal 41-53 [facility] Comment on above: Performed By: #### C MALORIE TREJO, ZFAST ####[facility] Ykn[address]64 [place] [address] Lab Director: Maureen Gonsalves MD#### LIPR ####[facility] [place] [address] Lab Director: Malick Ballard MD Hemoglobin (Bld) [Mass/Vol] 15.5 g/dL Normal 13.5-17.5 [facility] Comment on above: Performed By: #### C MALORIE TREJO, ZFAST ####[facility] Cdn[address]221 [place] [address] Lab Director: Maureen Gonsalves MD#### LIPR ####[address] [address] Lab Director: Malick Ballard MD Lymphocytes (Bld) [#/Vol] 1.80 10*3/uL Normal 1.0-4.8 [facility] Comment on above: Performed By: #### C MALORIE TREJO, ZFAST ####[facility] Xhw6071 [place] [address] Lab Director: Maureen Gonsalves MD#### LIPR ####[address] [place] [address] Lab Director: Malick Ballard MD Lymphocytes/100 WBC (Bld) 31 % Normal 13-44 [facility] Comment on above: Performed By: #### C MALORIE TREJO, ZFAST ####[facility] Vvt[address] [place] [address] Lab Director: Maureen Gonsalves MD#### LIPR ####[address] [place], [place] [phone] Lab Director: Malick Ballard MD MCH (RBC) [Entitic mass] 31.0 pg Normal 26-34 [facility] Comment on above: Performed By: #### C MALORIE TREJO, ZFAST ####[facility] Zxe55[address] [place], [place] [phone] lab Director: Maureen Gonsalves MD#### LIPR ####[address] [address] Lab Director: Malick Ballard MD MCHC (RBC) [Mass/Vol] 33.6 g/dL Normal 31-37 [facility] Comment on above: Performed By: #### C MALORIE TREJO, ZFAST ####[facility] [address] [place] [phone] lab Director: Maureen Gonsalves MD#### LIPR ####[address] [address] Lab Director: Malick Ballard MD MCV (RBC) [Entitic vol] 92.4 fL Normal 80-100 [facility] Comment on above: Performed By: #### C MALORIE TREJO, ZFAST ####[facility] Rba[address] [place], [place] [phone] lab Director: Maureen Gonsalves MD#### LIPR ####[address] [address] Lab Director: Malick Ballard MD Monocytes (Bld) [#/Vol] 0.50 10*3/uL Normal 0.0-1.0 [facility] Comment on above: Performed By: #### C MALORIE TREJO, ZFAST ####[facility] Lyh[address] [place], [place] [phone] Lab Director: Maureen Gonsalves MD#### LIPR ####[address] [place] [address] Lab Director: Malick Ballard MD Monocytes/100 WBC (Bld) 9 % Normal 5-9 [facility] Comment on above: Performed By: #### C MALORIE TREJO, ZFAST ####[facility] Pbv2375 [place] [address] Lab Director: Maureen Gonsalves MD#### LIPR ####[facility] [place] [address] Lab Director: Malick Ballard MD Neutrophil (Seg) 53 % Normal 39-75 [facility] Comment on above: Performed By: #### C MALORIE TREJO, ZFAST ####[facility] Gkp8333 [place] [address] Lab Director: Maureen Gonsalves MD#### LIPR ####[address] [address] Lab Director: Malick Ballard MD Platelets (Bld) [#/Vol] 286 10*3/uL Normal 140-450 [facility] Comment on above: Performed By: #### C MALORIE TREJO, ZFAST ####[facility] Hke[address]65 [place] [address] Lab Director: Maureen Gonsalves MD#### LIPR ####[facility] [place] [address] Lab Director: Malick Ballard MD RBC (Bld) [#/Vol] 4.99 10*6/uL Normal 4.5-5.9 [facility] Comment on above: Performed By: #### C MALORIE TREJO, ZFAST ####[facility] Srw6513 [place] [address] Lab Director: Maureen Gonsalves MD#### LIPR ####[address] [phone])[phone] Director: Malick Ballard MD WBC (Bld) [#/Vol] 5.7 10*3/uL Normal 3.5-11.0 [facility] Comment on above: Performed By: #### C MALORIE TREJO, ZFAST ####[facility] Pab[address] [place] [address] Lab Director: Maureen Gonsalves MD#### LIPR ####[facility] [address] [place], [place] [phone] Director: Malick Ballard MD Comp Metabolic Profon 2021 Albumin [Mass/Vol] 4.3 g/dL Normal 3.5-5.2 [facility] Comment on above: Performed By: #### C MALORIE TREJO, ZFAST ####[facility] Rnz6970 [place], [place] [phone] Director: Maureen Gonsalves MD#### LIPR ####[facility] [address] [place], [place] [address]19)[phone] Director: Malick Ballard MD Alkaline Phos 140 U/L High 40-129 [facility] Comment on above: Performed By: #### C MALORIE TREJO, ZFAST ####[facility] Otg[address]76 [place], [place] [phone])[phone] Director: Maureen Gonsalves MD#### LIPR ####[facility] [place], [place] 54382419)[phone] Director: Malick Ballard MD ALT [Catalytic activity/Vol] 17 U/L Normal 5-41 [facility] Comment on above: Performed By: #### C MALORIE TREJO, ZFAST ####[facility] Zqg4449 [place], [place] [phone])[phone] Director: Maureen Gonsalves MD#### LIPR ####[address] [place] [address] Lab Director: Malick Ballard MD Anion gap [Moles/Vol] 7 mmol/L Low 9-17 [facility] Comment on above: Performed By: #### C MALOREI TREJO, ZFAST ####[facility] Ijf[address]484 [place] [address] Lab Director: Maureen Gonsalves MD#### LIPR ####[address] [place] [address] Lab Director: Malick Ballard MD AST [Catalytic activity/Vol] 21 U/L Normal <40 [facility] Comment on above: Performed By: #### C MALORIE TREJO ZFAST ####[facility] Bfw[address]333 [place] [address] Lab Director: Maureen Gonsalves MD#### LIPR ####[address] [address] Lab Director: Malick Ballard MD Bilirubin [Mass/Vol] 0.5 mg/dL Normal 0.3-1.2 [facility] Comment on above: Performed By: #### C MALORIE TREJO, ZFAST ####[facility] Jmu[address]36 [place] [address] Lab Director: Maureen Gonsalves MD#### LIPR ####[address] [place] [address] Lab Director: Malick Ballard MD BUN/CRE Ratio 18 Normal 9-20 [facility] [place] Comment on above: Performed By: #### C MALORIE TREJO, ZFAST ####[facility] Gqw[address]194 [place] [address] Lab Director: Maureen Gonsalves MD#### LIPR ####[address] [place] [address] Lab Director: Malick Ballard MD Calcium [Mass/Vol] 9.6 mg/dL Normal 8.6-10.4 [facility] Comment on above: Performed By: #### C MALORIE TREJO ZFAST ####[facility] Jex[address] [place] [address] Lab Director: Maureen Gonsalves MD#### LIPR ####[facility] [place] [address] Lab Director: Malick Ballard MD Chloride [Moles/Vol] 107 mmol/L Normal 98-107 [facility] Comment on above: Performed By: #### C MALORIE TREJO ZFAST ####[facility] Rfj[address] [place] [address] Lab Director: Maureen Gonsalves MD#### LIPR ####[facility] [place] [address] Lab Director: Malick Ballard MD CO2 [Moles/Vol] 26 mmol/L Normal 20-31 [facility] Comment on above: Performed By: #### C MALORIE TREJO ZFAST ####[facility] [address]vq[address]37 [place] [address] Lab Director: Maureen Gonsalves MD#### LIPR ####[facility] [place] [address] Lab Director: Malick Ballard MD Creatinine [Mass/Vol] 1.03 mg/dL Normal 0.70-1.20 [facility] Comment on above: Performed By: #### C MALORIE TREJO ZFAST ####[facility] Ckb[address]2 [place] [address] Lab Director: Maureen Gonsalves MD#### LIPR ####[facility] [place] [address] Lab Director: Malick Ballard MD GFR/1.73 sq M.predicted among non-blacks MDRD (S/P/Bld) [Vol rate/Area] mL/min/{1.73_m2} Normal >60 [facility] Comment on above: Result Comment: Effective Jun 27, 2022 These results are not intended for use in patients <18 years of age. eGFR results are calculated without a race factor using the 2020 CKD-EPI equation. Careful clinical correlation is recommended, particularly when comparing to results calculated using previous equations. The CKD-EPI equation is less accurate in patients with extremes of muscle mass, extra-renal metabolism of creatine, excessive creatine ingestion, or following therapy that affects renal tubular secretion. Performed By: #### C MALORIE TREJO ZFAST ####[facility] [address]fj[address] [place], [place] [address])[phone] Director: Maureen Gonsalves MD#### LIPR ####[address] [address])[phone] Director: Malick Ballard MD Glucose [Mass/Vol] 93 mg/dL Normal 70-99 [facility] Comment on above: Performed By: #### C MALORIE TREJO ZFAST ####[facility] Wov[address] [place], [place] [address])[phone] Director: Maureen Gonsalves MD#### LIPR ####[address] [address] Lab Director: Malick Ballard MD Potassium [Moles/Vol] 5.0 mmol/L Normal 3.7-5.3 [facility] Comment on above: Performed By: #### C MALORIE TREJO ZFAST ####[facility] [address] [place], [place] [address])[phone] Director: Maureen Gonsalves MD#### LIPR ####[address] [place] [address] Lab Director: Malick Ballard MD Protein [Mass/Vol] 6.7 g/dL Normal 6.4-8.3 [facility] Comment on above: Performed By: #### C MALORIE TREJO ZFAST ####[facility] Kzc0714 [place], [place] [phone] Lab Director: Maureen Gonsalves MD#### LIPR ####[facility] [address] [place], [place] 7606[address] Lab Director: Malick Ballard MD Sodium [Moles/Vol] 140 mmol/L Normal 135-144 [facility] Comment on above: Performed By: #### C MALORIE TREJO ZFAST ####[facility] [address] [place], [place] [id number] Lab Director: Maureen Gonsalves MD#### LIPR ####[facility] [address] [place], [place] 1932[address] Lab Director: Malick Ballard MD Urea nitrogen [Mass/Vol] 19 mg/dL Normal 8-23 [facility] Comment on above: Performed By: #### C MALORIE TREJO ZFAST ####[facility] [address] [place], [place] [id number] Lab Director: Maureen Gonsalves MD#### LIPR ####[facility] [address] [place] [address] Lab Director: Malick Ballard MD Comprehensive Metabolic Pane [facility] 09-06-2022 Albumin [Mass/Vol] 4.3 g/dL 3.5 - 5.2 g/dL [facility] ALP (Bld) [Catalytic activity/Vol] 140 U/L High 40 - 129 U/L [facility] ALT [Catalytic activity/Vol] 17 U/L 5 - 41 U/L [facility] Anion gap [Moles/Vol] 7 mmol/L Low 9 - 17 mmol/L [facility] AST [Catalytic activity/Vol] 21 U/L NINF - 40 U/L [facility] Bilirubin [Mass/Vol] 0.5 mg/dL 0.3 - 1 .2 mg/dL [facility] Calcium [Mass/Vol] 9.6 mg/dL 8.6 - 10. 4 mg/dL [facility] Chloride [Moles/Vol] 107 mmol/L 98 - 10 7 mmol/L [facility] CO2 [Moles/Vol] 26 mmol/L 20 - 31 mmol/L [facility] Creatinine [Mass/Vol] 1.03 mg/dL 0.70 - 1.20 mg/dL [facility] GFR/1.73 sq M.predicted MDRD (S/P/Bld) [Vol rate/Area] - PINF [facility] Comment on above: Effective Jun 27, 2022 These results are not intended for use in patients <18 years of age. eGFR results are calculated without a race factor using the 2020 CKD-EPI equation. Careful clinical correlation is recommended, particularly when comparing to results calculated using previous equations. The CKD-EPI equation is less accurate in patients with extremes of muscle mass, extra-renal metabolism of creatine, excessive creatine ingestion, or following therapy that affects renal tubular secretion. Glucose [Mass/Vol] 93 mg/dL 70 - 99 mg/dL [facility] Interpretation and review of laboratory results Abnormal [facility] Potassium [Moles/Vol] 5.0 mmol/L 3.7 - 5.3 mmol/L [facility] Protein [Mass/Vol] 6.7 g/dL 6.4 - 8.3 g/dL [facility] Sodium [Moles/Vol] 140 mmol/L 135 - 144 mmol/L [facility] Urea nitrogen (BldV) [Mass/Vol] 19 mg/dL 8 - 23 mg/dL [facility] Urea nitrogen/Creatinine (Bld) [Mass ratio] 18 9 - 20 [facility] Lipid Panelon 09-06-2022 Cholesterol [Mass/Vol] 163 mg/dL NINF - 200 mg/dL [facility] Comment on above: Cholesterol Guidelines: <200 Desirable 200-240 Borderline >240 Undesirable Cholesterol in HDL [Mass/Vol] 45 mg/dL 40 - PINF mg/dL [facility] Comment on above: HDL Guidelines: <40 Undesirable 40-59 Borderline >59 Desirable Cholesterol in LDL [Mass/Vol] 93 mg/dL 0 - 130 mg/dL [facility] Comment on above: LDL Guidelines: <100 Desirable 100-129 Near to/above Desirable 130-159 Borderline >159 Undesirable Direct (measured) LDL and calculated LDL are not interchangeable tests. Cholesterol.total/Cho lesterol in HDL [Mass ratio] 3.6 {ratio} NINF - [address] [facility] Triglyceride [Mass/Vol] 125 mg/dL NINF - 150 mg/dL [facility] Comment on above: Triglyceride Guidelines: <150 Desirable 150-199 Borderline 200-499 High >499 Very high Based on AHA Guidelines for fasting triglyceride, June 2012. [facility] NM MYOCARDIAL SPECT REST EXE RCISE OR RXon 09-06-2022 NM MYOCARDIAL SPECT REST EXERCISE OR RX Radiology exam is complete. No Radiologist dictation. Please follow up with ordering provider. Final result Normal [facility] No Panel Informationon 09-06 Radiology exam is complete. No Radiologist dictation. Please follow up with ordering provider. MHPN RIS CONSOLIDATED Patient Fasting?on 2 Patient Fasting? yes [facility] Patient fasting?on 2 Patient fasting? yes Normal [facility] Comment on above: Performed By: #### C DP, CP, ZFAST ####[facility] [address] [place], [place] [id number] Lab Director: Maureen Gonsalves MD#### LIPR ####[facility] [address] [place], [place] [id number] Lab Director: Malick Ballard MD Lipid Profileon 07-20-2022 Cholesterol [Mass/Vol] 166 mg/dL Normal <200 [facility] Comment on above: Result Comment: Cholesterol Guidelines: <200 Desirable 200-240 Borderline >240 Undesirable Performed By: #### L IPR ####[facility] [address] [place], [place] [id number] Lab Director: Malick Ballard MD#### CP, CDP, ZFAST, TSH, MG ####[facility] [address] [place] [address] Lab Director: Maureen Gonsalves MD Cholesterol in HDL [Mass/Vol] 48 mg/dL Normal >40 [facility] Comment on above: Result Comment: HDL Guidelines: <40 Undesirable 40-59 Borderline >59 Desirable Performed By: #### L IPR ####[facility] [place] [address] Lab Director: Malick Ballard MD#### CP, CDP, ZFAST, TSH, MG ####[facility] [address] [place] [address] Lab Director: Maureen Gonsalves MD Cholesterol in LDL [Mass/Vol] 99 mg/dL Normal 0-130 [facility] Comment on above: Result Comment: LDL Guidelines: <100 Desirable 100-129 Near to/above Desirable 130-159 Borderline >159 Undesirable Direct (measured) LDL and calculated LDL are not interchangeable tests. Performed By: #### L IPR ####[facility] [place] [address] Lab Director: Malick Ballard MD#### CP, CDP, ZFAST, TSH, MG ####[facility] [address] [place] [address] Lab Director: Maureen Gonsalves MD Cholesterol.total/Cho lesterol in HDL [Mass ratio] 3.5 {ratio} Normal <5 [facility] Comment on above: Performed By: #### L IPR ####[facility] [place] [address] Lab Director: Malick Ballard MD#### CP, CDP, ZFAST, TSH, MG ####[facility] [address] [place] [address] Lab Director: Maureen Gonsalves MD Triglyceride [Mass/Vol] 96 mg/dL Normal <150 [facility] Comment on above: Result Comment: Triglyceride Guidelines: <150 Desirable 150-199 Borderline 200-499 High >499 Very high Based on AHA Guidelines for fasting triglyceride, June 2012. Performed By: #### L IPR ####[facility] [address] [place] [address] Lab Director: Malick Ballard MD#### CP, CDP, ZFAST, TSH, MG ####[facility] [address] [place] [address] lab Director: Maureen Gonsalves MD CBC with Auto Differentialon 07-19-2022 Absolute Eos # 0.20 B[facility] [address] [facility] Absolute Lymph # 1.70 [facility] SECO URS [facility] Absolute [place] # 0.60 [facility] RS [facility] Basophils (Bld) [#/Vol] 0.10 10*3/uL [facility] Basophils/100 WBC (Bld) 1 % 0 - 2 % [facility] Differential Type YES [facility] Eosinophils/100 WBC (Bld) 3 % 0 - 5 % [facility] Hematocrit (Bld) [Volume fraction] 45.5 % 41 - 53 % [facility] Hemoglobin (Bld) [Mass/Vol] 15.3 g/dL 13.5 - 17.5 g/dL [facility] Interpretation and review of laboratory results Abnormal [facility] Lymphocytes/100 WBC (Bld) 28 % 13 - 44 % [facility] MCH (RBC) [Entitic mass] 30.9 pg 26 - [address] [facility] MCHC (RBC) [Mass/Vol] 33.6 g/dL 31 - 37 g/dL B ON [facility] MCV (RBC) [Entitic vol] 91.8 fL 80 - [address] [facility] Monocytes/100 WBC (Bld) 10 % High 5 - 9 % [facility] Platelet distribution width (Bld) [Ratio] 12.9 % 12.1 - 15.2 % [facility] Platelets (Bld) [#/Vol] 258 10*3/uL [facility] RBC (Bld) [#/Vol] 4.95 10*6/uL 4.5 - 5.9 m/uL [facility] Segmented neutrophils/100 WBC (Bld) 58 % 39 - 75 % [facility] Segs Absolute 3.[address] [facility] WBC (Bld) [#/Vol] 6.0 10*3/uL [facility] CBC with Diffon 07-19-2022 Abs. Basophil 0.10 k/uL Normal 0.0-0.2 [facility] Comment on above: Performed By: #### L IPR #### [address] [address] Section Laborer: Malick Ballard MD #### CP, CDP, ZFAST, TSH, MG #### [facility] [address] [place], [place] [id number] Section Laborer: Maureen Gonsalves MD Abs.Neutrophil (Seg) 3.50 k/uL Normal 2.1-6.5 [facility] Comment on above: Performed By: #### L IPR #### [address] [address] Section Laborer: Malick Ballard MD #### CP, CDP, ZFAST, TSH, MG #### [facility] [address] [place] [address] Section Laborer: Maureen Gonsalves MD Auto Diff Performed YES Normal [facility] Comment on above: Performed By: #### L IPR #### [address] [address] Section Laborer: Malick Ballard MD #### CP, CDP, ZFAST, TSH, MG #### [facility] [address] [place], [place] 9776090 Section Laborer: Maureen Gonsalves MD Basophils/100 WBC (Bld) 1 % Normal 0-2 [facility] Comment on above: Performed By: #### L IPR #### [address] [place] [address] Section Laborer: Malick Ballard MD #### CP, CDP, ZFAST, TSH, MG #### [facility] [address] [place], [place] [id number] Section Laborer: Maureen Gonsalves MD Eosinophils (Bld) [#/Vol] 0.20 10*3/uL Normal 0.0-0.4 [facility] Comment on above: Performed By: #### L IPR #### [address] [id number] Section Laborer: Malick Ballard MD #### CP, CDP, ZFAST, TSH, MG #### [facility] [address] [place], [place] [phone] Section Laborer: Maureen Gonsalves MD Eosinophils/100 WBC (Bld) 3 % Normal 0-5 [facility] Comment on above: Performed By: #### L IPR #### [address] 0999908 Section Laborer: Malick Ballard MD #### CP, CDP, ZFAST, TSH, MG #### [facility] [address] [place], [place] [phone] Section Laborer: Maureen Gonsalves MD Erythrocyte distribution width (RBC) [Ratio] 12.9 % Normal 12.1-15.2 [facility] Comment on above: Performed By: #### L IPR #### [address] [id number] Section Laborer: Malick Ballard MD #### CP, CDP, ZFAST, TSH, MG #### [facility] [address] [place], [place] [phone] Section Laborer: Maureen Gonsalves MD Hematocrit (Bld) [Volume fraction] 45.5 % Normal 41-53 [facility] Comment on above: Performed By: #### L IPR #### [facility] [address] [place] [address] Section Laborer: Malick Ballard MD #### CP, CDP, ZFAST, TSH, MG #### [facility] [address] [place], [place] 5045190 Section Laborer: Maureen Gonsalves MD Hemoglobin (Bld) [Mass/Vol] 15.3 g/dL Normal 13.5-17.5 [facility] Comment on above: Performed By: #### L IPR #### [facility] [address] [place] [address] Section Laborer: Malick Ballard MD #### CP, CDP, ZFAST, TSH, MG #### [facility] [address] [place], [place] [id number] Section Laborer: Maureen Gonsalves MD Lymphocytes (Bld) [#/Vol] 1.70 10*3/uL Normal 1.0-4.8 [facility] Comment on above: Performed By: #### L IPR #### [address] [address] Section Laborer: Malick Ballard MD #### CP, CDP, ZFAST, TSH, MG #### [facility] [address] [place], [place] [id number] Section Laborer: Maureen Gonsalves MD Lymphocytes/100 WBC (Bld) 28 % Normal 13-44 [facility] Comment on above: Performed By: #### L IPR #### [facility] [address] [place], [place] 6161108 Section Laborer: Malick Ballard MD #### CP, CDP, ZFAST, TSH, MG #### [facility] [address] [place], [place] [phone] Section Laborer: Maureen Gonsalves MD MCH (RBC) [Entitic mass] 30.9 pg Normal 26-34 [facility] Comment on above: Performed By: #### L IPR #### [address] [place], [place] 3941708 Section Laborer: Malick Ballard MD #### CP, CDP, ZFAST, TSH, MG #### [facility] [address] [place], [place] [id number] Section Laborer: Maureen Gonsalves MD MCHC (RBC) [Mass/Vol] 33.6 g/dL Normal 31-37 [facility] Comment on above: Performed By: #### L IPR #### [address] [id number] Section Laborer: Malick Ballard MD #### CP, CDP, ZFAST, TSH, MG #### [facility] [address] [place] [address] Section Laborer: Maureen Gonsalves MD MCV (RBC) [Entitic vol] 91.8 fL Normal 80-100 [facility] Comment on above: Performed By: #### L IPR #### [address] [id number] Section Laborer: Malick Ballard MD #### CP, CDP, ZFAST, TSH, MG #### [facility] [address] [place] [address] Section Laborer: Maureen Gonsalves MD Monocytes (Bld) [#/Vol] 0.60 10*3/uL Normal 0.0-1.0 [facility] Comment on above: Performed By: #### L IPR #### [address] 0368508 Section Laborer: Malick Ballard MD #### CP, CDP, ZFAST, TSH, MG #### [facility] [address] [place] [address] Section Laborer: Maureen Gonsalves MD Monocytes/100 WBC (Bld) 10 % High 5-9 [facility] Comment on above: Performed By: #### L IPR #### [facility] [address] [place] [address] Section Laborer: Malick Ballard MD #### CP, CDP, ZFAST, TSH, MG #### [facility] [address] [place], [place] [id number] Section Laborer: Maureen Gonsalves MD Neutrophil (Seg) 58 % Normal 39-75 [facility] Comment on above: Performed By: #### L IPR #### [facility] [address] [place] [address] Section Laborer: Malick Ballard MD #### CP, CDP, ZFAST, TSH, MG #### [facility] [address] [place], [place] [id number] Section Laborer: Maureen Gonsalves MD Platelets (Bld) [#/Vol] 258 10*3/uL Normal 140-450 [facility] Comment on above: Performed By: #### L IPR #### [facility] [address] [place] [address] Section Laborer: Malick Ballard MD #### CP, CDP, ZFAST, TSH, MG #### [facility] [address] [place], [place] 5277790 Section Laborer: Maureen Gonsalves MD RBC (Bld) [#/Vol] 4.95 10*6/uL Normal 4.5-5.9 [facility] Comment on above: Performed By: #### L IPR #### [facility] [address] [place] [address] Section Laborer: Malick Ballard MD #### CP, CDP, ZFAST, TSH, MG #### [facility] [address] [place], [place] [phone] Section Laborer: Maureen Gonsalves MD WBC (Bld) [#/Vol] 6.0 10*3/uL Normal 3.5-11.0 [facility] Comment on above: Performed By: #### L IPR #### [address] [address] Section Laborer: Malick Ballard MD #### CP, CDP, ZFAST, TSH, MG #### [facility] [address] [place] [address] Section Laborer: Maureen Gonsalves MD Comp Metabolic Profon 2021 Albumin [Mass/Vol] 4.6 g/dL Normal 3.5-5.2 [facility] Comment on above: Performed By: #### L IPR #### [address] [address] Section Laborer: Malick Ballard MD #### CP, CDP, ZFAST, TSH, MG #### [facility] [address] [place] [phone] Section Laborer: Maureen Gonsalves MD Alkaline Phos 141 U/L High 40-129 [facility] Comment on above: Performed By: #### L IPR #### [address] [address] Section Laborer: Malick Ballard MD #### CP, CDP, ZFAST, TSH, MG #### [facility] [address] [place] [phone] Section Laborer: Maureen Gonsalves MD ALT [Catalytic activity/Vol] 20 U/L Normal 5-41 [facility] Comment on above: Performed By: #### L IPR #### [address] [address] Section Laborer: Malick Ballard MD #### CP, CDP, ZFAST, TSH, MG #### [facility] [address] [place], [place] [phone] Section Laborer: Maureen Gonsalves MD Anion gap [Moles/Vol] 6 mmol/L Low 9-17 [facility] Comment on above: Performed By: #### L IPR #### [address] [address] Section Laborer: Malick Ballard MD #### CP, CDP, ZFAST, TSH, MG #### [facility] [address] [place], [place] [phone] Section Laborer: Maureen Gonsalves MD AST [Catalytic activity/Vol] 25 U/L Normal <40 [facility] Comment on above: Performed By: #### L IPR #### [address] [address] Section Laborer: Malick Ballard MD #### CP, CDP, ZFAST, TSH, MG #### [facility] [address] [place], [place] [phone] Section Laborer: Maureen Gonsalves MD Bilirubin [Mass/Vol] 0.8 mg/dL Normal 0.30-1.20 [facility] Comment on above: Performed By: #### L IPR #### [address] [address] Section Laborer: Malick Ballard MD #### CP, CDP, ZFAST, TSH, MG #### [facility] [address] [place], [place] 2523390 Section Laborer: Maureen Gonsalves MD BUN/CRE Ratio 21 High 9-20 [facility] Comment on above: Performed By: #### L IPR #### [address] [address] Section Laborer: Malick Ballard MD #### CP, CDP, ZFAST, TSH, MG #### [facility] [address] [place], [place] 5333290 Section Laborer: Maureen Gonsalves MD Calcium [Mass/Vol] 10.0 mg/dL Normal 8.6-10.4 [facility] Comment on above: Performed By: #### L IPR #### [facility] [address] [place], [place] 8536208 Section Laborer: Malick Ballard MD #### CP, CDP, ZFAST, TSH, MG #### [facility] [address] [place] [address] Section Laborer: Maureen Gonsalves MD Chloride [Moles/Vol] 106 mmol/L Normal 98-107 [facility] Comment on above: Performed By: #### L IPR #### [address] [place], [place] 9062508 Section Laborer: Malick Ballard MD #### CP, CDP, ZFAST, TSH, MG #### [facility] [address] [place] [address] Section Laborer: Maureen Gonsalves MD CO2 [Moles/Vol] 27 mmol/L Normal 20-31 [facility] Comment on above: Performed By: #### L IPR #### [facility] [address] [place], [place] 2199408 Section Laborer: Malick Ballard MD #### CP, CDP, ZFAST, TSH, MG #### [facility] [address] [place] [address] Section Laborer: Maureen Gonsalves MD Creatinine [Mass/Vol] 1.13 mg/dL Normal 0.70-1.20 [facility] Comment on above: Performed By: #### L IPR #### [facility] [address] [place], [place] 1493008 Section Laborer: Malick Ballard MD #### CP, CDP, ZFAST, TSH, MG #### [facility] [address] [place] [address] Section Laborer: Maureen Gonsalves MD GFR/1.73 sq M.predicted among non-blacks MDRD (S/P/Bld) [Vol rate/Area] mL/min/{1.73_m2} Normal >60 [facility] Comment on above: Result Comment: Effective Jun 27, 2022 These results are not intended for use in patients <18 years of age. eGFR results are calculated without a race factor using the 2020 CKD-EPI equation. Careful clinical correlation is recommended, particularly when comparing to results calculated using previous equations. The CKD-EPI equation is less accurate in patients with extremes of muscle mass, extra-renal metabolism of creatine, excessive creatine ingestion, or following therapy that affects renal tubular secretion. Performed By: #### L IPR #### [facility] [address] [place], [place] [id number] Section Laborer: Malick Ballard MD #### CP, CDP, ZFAST, TSH, MG #### [facility] [address] [place] [address] Section Laborer: Maureen Gonsalves MD Glucose [Mass/Vol] 88 mg/dL Normal 70-99 [facility] Comment on above: Performed By: #### L IPR #### [facility] [address] [place], [place] 7291008 Section Laborer: Malick Ballard MD #### CP, MARCELO, ZFAST, TSH, MG #### [facility] [address] [place] [address] Section Laborer: Maureen Gonsalves MD Potassium [Moles/Vol] 4.6 mmol/L Normal 3.7-5.3 [facility] Comment on above: Performed By: #### L IPR #### [facility] [address] [place], [place] 8635208 Section Laborer: Malick Ballard MD #### CP, CDP, ZFAST, TSH, MG #### [facility] [address] [place] [address] Section Laborer: Maureen Gonsalves MD Protein [Mass/Vol] 6.7 g/dL Normal 6.4-8.3 [facility] Comment on above: Performed By: #### L IPR #### [facility] [address] [place], [place] 2093908 Section Laborer: Malick Ballard MD #### CP, CDP, ZFAST, TSH, MG #### [facility] [address] [place], [place] 28875[address] Section Laborer: Maureen Gonsalves MD Sodium [Moles/Vol] 139 mmol/L Normal 135-144 [facility] Comment on above: Performed By: #### L IPR #### [facility] [address] [place], [place] 6097708 Section Laborer: Malick Ballard MD #### CP, CDP, ZFAST, TSH, MG #### [facility] [address] [place] [place], [place] 6298690 Section Laborer: Maureen Gonsalves MD Urea nitrogen [Mass/Vol] 24 mg/dL High 8-23 [facility] Comment on above: Performed By: #### L IPR #### [facility] [address] [place], [place] 508[address] Section Laborer: Malick Ballard MD #### CP, CDP, ZFAST, TSH, MG #### [facility] [address] [place], [place] 16637[address] Section Laborer: Maureen Gonsalves MD Comprehensive Metabolic Pane [facility] 07-19-2022 Albumin [Mass/Vol] 4.6 g/dL 3.5 - 5.2 g/dL [facility] ALP (Bld) [Catalytic activity/Vol] 141 U/L High 40 - 129 U/L [facility] ALT [Catalytic activity/Vol] 20 U/L 5 - 41 U/L [facility] Anion gap [Moles/Vol] 6 mmol/L Low 9 - 17 mmol/L [facility] AST [Catalytic activity/Vol] 25 U/L NINF - 40 U/L [facility] Bilirubin [Mass/Vol] 0.8 mg/dL 0.30 - 1.20 mg/dL [facility] Calcium [Mass/Vol] 10.0 mg/dL 8.6 - 10. 4 mg/dL [facility] Chloride [Moles/Vol] 106 mmol/L 98 - 10 7 mmol/L [facility] CO2 [Moles/Vol] 27 mmol/L 20 - 31 mmol/L [facility] Creatinine [Mass/Vol] 1.13 mg/dL 0.70 - 1.20 mg/dL [facility] GFR/1.73 sq M.predicted MDRD (S/P/Bld) [Vol rate/Area] - PINF [facility] Comment on above: Effective Jun 27, 2022 These results are not intended for use in patients <18 years of age. eGFR results are calculated without a race factor using the 2020 CKD-EPI equation. Careful clinical correlation is recommended, particularly when comparing to results calculated using previous equations. The CKD-EPI equation is less accurate in patients with extremes of muscle mass, extra-renal metabolism of creatine, excessive creatine ingestion, or following therapy that affects renal tubular secretion. Glucose [Mass/Vol] 88 mg/dL 70 - 99 mg/dL [facility] Interpretation and review of laboratory results Abnormal [facility] Potassium [Moles/Vol] 4.6 mmol/L 3.7 - 5.3 mmol/L [facility] Protein [Mass/Vol] 6.7 g/dL 6.4 - 8.3 g/dL [facility] Sodium [Moles/Vol] 139 mmol/L 135 - 144 mmol/L [facility] Urea nitrogen (BldV) [Mass/Vol] 24 mg/dL High 8 - 23 mg/dL [facility] Urea nitrogen/Creatinine (Bld) [Mass ratio] 21 High 9 - [address] [facility] EKG 12 leadon 07-19-2022 Atrial Rate 54 BPM [facility] [employer] Work Phone: P Maxwell 79 degrees [facility] [employer] Work Phone: P-R Interval 192 ms [facility] [employer] Work Phone: Q-T Interval 428 ms [employer] Work Phone: QRS Duration 94 ms [employer] Work Phone: QTc Calculation (Bazett) 405 ms [employer] Work Phone: R Maxwell 64 degrees [employer] Work Phone: T Maxwell 68 degrees [employer] Work Phone: Ventricular Rate 54 BPM [employer] Work Phone: Sinus bradycardia Otherwise normal ECG No previous ECGs available [facility] Taj Da Silva MD - 07/19/2022 Sinus bradycardia Otherwise normal ECG No previous ECGs available [employer] Work Phone: [employer] Work Phone: Magnesiumon 07-19-2022 Magnesium [Mass/Vol] 2.0 mg/dL Normal 1.6-2.6 [facility] Comment on above: Performed By: #### L IPR #### [facility] [address] [place], [place] [id number] Section Laborer: Malick Ballard MD #### CP, CDP, ZFAST, TSH, MG #### [facility] [facility] [address] [place] [address] Section Laborer: Maureen Gonsalves MD Magnesium [Mass/Vol] 2.0 mg/dL 1.6 - 2 .6 mg/dL [facility] [employer] No Panel Informationon 07-19 [email or web address] Patient Fasting?on 2 Patient Fasting? YES [facility] [employer] [facility] Patient fasting?on 2 Patient fasting? YES Normal [facility] Comment on above: Performed By: #### L IPR #### [facility] [address] [place], [place] [address] Section Laborer: Malick Ballard MD #### CP, CDP, ZFAST, TSH, MG #### [facility] [address] [place] [address] Section Laborer: Maureen Gonsalves MD TSHon 07-19-2022 TSH Qn 3.06 m[IU]/L [facility] Thyroid Stim. Horm.on 2021 Thyroid Stim. Horm. 3.06 uIU/mL Normal 0.30-5.00 [facility] Comment on above: Performed By: #### L IPR ####[facility] [id number] [place], [place] [id number] Lab Director: Malick Ballard MD#### CP, CDP, ZFAST, TSH, MG ####[facility] [id number] [place] [address] Lab Director: Maureen Gonsalves MD XR CHEST (2 VW)on 07-19-2022 XR CHEST (2 VW) EXAM: XR CHEST (2 VW ) HISTORY: Reason for exam:->heart murmur, bradycardia, htn, atrial dilatation, fatigue COMPARISON: Portable chest 12/12/2021. TECHNIQUE: 2 views chest FINDINGS: Wedge compressions midthoracic spine. Heart size normal. Lungs clear. IMPRESSION: Wedge compressions midthoracic spine. Consider DXA scanning. No acute change. Interpreted by: Eleno Tucker Jr., MD Signed by: Eleno Tucker Jr., MD 07/19/22 Final result Normal [facility] Wedge compressions midthoracic spine. Consider DXA scanning. No acute change. MHPN RIS CONSOLIDATED EXAM: XR CHEST (2 VW ) HISTORY: Reason for exam:->heart murmur, bradycardia, htn, atrial dilatation, fatigue COMPARISON: Portable chest 12/12/2021. TECHNIQUE: 2 views chest FINDINGS: Wedge compressions midthoracic spine. Heart size normal. Lungs clear. MHPN RIS CONSOLIDATED Eleno Tucker Jr., MD - 07/19/2022 EXAM: XR CHEST (2 VW) HISTORY: Reason for exam:->heart murmur, bradycardia, htn, atrial dilatation, fatigue COMPARISON: Portable chest 12/12/2021. TECHNIQUE: 2 views chest FINDINGS: Wedge compressions midthoracic spine. Heart size normal. Lungs clear. IMPRESSION: Wedge compressions midthoracic spine. Consider DXA scanning. No acute change. [employer] Phone: Radiology Study observation (narrative) [employer] Phone: XR CHEST (2 VW)Ordered By: Sonya Tucker on 07-19-2022 [employer] Phone: Comprehensive Metabolic Pane john 11-16-2021 Albumin [Mass/Vol] 4.6 g/dL Normal 3.6-5.1 Anuradha landry [place] Inside Barrel Lathe Operator Comment on above: Performed By: #### L IPD, CMP, URIC #### [facility] [address], [place] [id number] Albumin/Globulin [Mass ratio] 3.3 {ratio} High 1.0-2.5 [facility] [employer] Lathe Operator Comment on above: Performed By: #### L IPD, CMP, URIC #### [facility] [address], [place] [id number] ALP [Catalytic activity/Vol] 118 U/L Normal 40-[address] [facility] Specialist Comment on above: Performed By: #### L IPD, CMP, URIC #### [facility] [address], [place] [id number] ALT [Catalytic activity/Vol] 18 U/L Normal 9-[address] [facility] Specialist Comment on above: Result Comment: 08/25 Female reference range changed. Performed By: #### L IPD, CMP, URIC #### [facility] [address], [place] [id number] Anion gap [Moles/Vol] 16 mmol/L Normal 12-20 [facility] Specialist Comment on above: Result Comment: Effe ctive 09/30/2019 reference range changed. Performed By: #### L IPD, CMP, URIC #### [facility] [address], [place] [id number] AST [Catalytic activity/Vol] 19 U/L Normal 10-40 [facility] Comment on above: Performed By: #### L IPD, CMP, URIC #### [facility] [address], [place] [id number] Bilirubin [Mass/Vol] 0.40 mg/dL Normal 0.30-1.[address] [facility] Comment on above: Performed By: #### L IPD, CMP, URIC #### [facility] [address], [place] [id number] BUN/CREA 20 Ratio Normal 6-22 [facility] Comment on above: Performed By: #### L IPD, CMP, URIC #### [facility] [address], [place] [id number] Calcium [Mass/Vol] 10.3 mg/dL High 8.6-10.2 [facility] Comment on above: Performed By: #### L IPD, CMP, URIC #### [facility] [address], [place] [id number] Chloride [Moles/Vol] 110 mmol/L High 98-[address] [facility] Comment on above: Performed By: #### L IPD, CMP, URIC #### [facility] [address], [place] [id number] CO2 [Moles/Vol] 24 mmol/L Normal 20-31 [facility] Comment on above: Performed By: #### L IPD, CMP, URIC #### [facility] [address], [place] [id number] Creatinine [Mass/Vol] 1.1 mg/dL Normal 0.7-1.4 [facility] Comment on above: Performed By: #### L IPD, CMP, URIC #### [facility] [address], [place] [id number] eGFRAA 81 mL/min/1.73m2 Normal >60 [facility] Comment on above: Performed By: #### L IPD, CMP, URIC #### [facility] [address], [place] [id number] eGFRNAA 67 mL/min/1.73m2 Normal >60 [facility] Comment on above: Performed By: #### L IPD, CMP, URIC #### [facility] [address], [place] [id number] Globulin (S) [Mass/Vol] 1.4 g/dL Low 1.9-3.7 [facility] Inside Bar[employer] Lathe Operator Comment on above: Performed By: #### L IPD, CMP, URIC #### [facility] [address], [place] [id number] Glucose [Mass/Vol] 75 mg/dL Normal 65-99 [facility] Inside Barrel Lathe Operator Comment on above: Result Comment: For FASTING Glucose --- ADA reference ranges: Normal 65-99 mg/dl Prediabetes 100-125 Diabetes >/= 126 Performed By: #### L IPD, CMP, URIC #### [facility] [address], [place] [id number] Potassium [Moles/Vol] 4.3 mmol/L Normal 3.5-5.5 [facility] Comment on above: Performed By: #### L IPD, CMP, URIC #### [facility] [address], [place] [id number] Protein [Mass/Vol] 6.0 g/dL Low 6.1-8.[address] [facility] Specialist Comment on above: Performed By: #### L IPD, CMP, URIC #### [facility] [address], [place] [id number] Sodium [Moles/Vol] 145 mmol/L Normal 135-[address] [facility] Specialist Comment on above: Performed By: #### L IPD, CMP, URIC #### [facility] [address], [place] [id number] Urea nitrogen [Mass/Vol] 22 mg/dL Normal 7-25 [facility] Inside Bar[employer] Lathe Operator Comment on above: Performed By: #### L IPD, CMP, URIC #### [facility] [address], [place] [id number] Lipid Panelon 11-16-2021 Cholesterol [Mass/Vol] 164 mg/dL Normal 125-200 [facility] Inside Barrel Lathe Operator Comment on above: Result Comment: Low risk < 200mg/dL Borderline risk 201-239 mg/dl High risk > or equal to 240 Performed By: #### L IPD, CMP, URIC #### [facility] [address], [place] [id number] Cholesterol in HDL [Mass/Vol] 46 mg/dL Normal >[address] [facility] Specialist Comment on above: Result Comment: High Cardiovascular Risk HDL <40 mg/dL Low Cardiovascular Risk HDL > or equal to 60 mg/dl Performed By: #### L IPD, CMP, URIC #### [facility] [address], [place] [id number] Cholesterol in LDL [Mass/Vol] 98 mg/dL Normal [facility] Specialist Comment on above: Result Comment: LDL ATP III CLASSIFICATION LDL less than 100 mg/dl Optimal LDL 100-129 mg/dl Near or above optimal LDL 130-159 Borderline high LDL 160-189 High LDL greater than 189 mg/dl Very High Performed By: #### L IPD, CMP, URIC #### [facility] [address], [place] [id number] Cholesterol in VLDL [Mass/Vol] 20 mg/dL Normal [facility] Specialist Comment on above: Performed By: #### L IPD, CMP, URIC #### [facility] [address], [place] [id number] Cholesterol.total/Cho lesterol in HDL [Mass ratio] 4 {ratio} Normal [facility] Specialist Comment on above: Performed By: #### L IPD, CMP, URIC #### [facility] [address], [place] [id number] Triglyceride [Mass/Vol] 98 mg/dL Normal 30-[address] [facility] Specialist Comment on above: Result Comment: TRIG ATPIII CLASSIFICATIONS TRIG less than 150 mg/dl Normal TRIG 150-199 mg/dl Borderline High TRIG 200-500 mg/dl High TRIG greather than 500 mg/dl Very High Performed By: #### L IPD, CMP, URIC #### [facility] [address], [place] [id number] Uric Acidon 11-16-2021 URIC 4.2 mg/dL Normal 4.0-8.[address] [facility] Specialist Comment on above: Result Comment: Refe rence range change 08/11/2017. Prior reference range F 2.4-5.7mg/dL. M 3.4-7.0 mg/dL. Performed By: #### L IPD, CMP, URIC #### [facility] [address], [place] [id number] Vital Signs Date Time Vital Sign Value Performing Clinician Facility 11-21-2022 10:54-0500 Diastolic blood pressure 107 mm[Hg] Rabia Sams PA-C Work Phone: [facility] 11-21-2022 10:54-0500 Heart rate 63 /min Rabia Beattyester PA-C Work Phone: [facility] 11-21-2022 10:54-0500 SaO2% (BldA) [Mass fraction] 100 % Rabia Beattyester PA-C Work Phone: [facility] 11-21-2022 10:54-0500 Systolic blood pressure 169 mm[Hg] Rabia Sams PA-C Work Phone: [facility] 11-21-2022 10:47-0500 Body height 177.8 cm Rabia Sams PA-C Work Phone: [facility] 11-21-2022 10:47-0500 Body mass index (BMI) [Ratio] 25.25 kg/m2 Rabia Beattyester PA-C Work Phone: [facility] 11-21-2022 10:47-0500 Body weight 79.83 kg Rabia Beattyester PA-C Work Phone: [facility] 10-31-2022 10:22-0500 Diastolic blood pressure 81 mm[Hg] Aiden Garcia PA-C Work Phone: [facility] 10-31-2022 10:22-0500 Systolic blood pressure 121 mm[Hg] Aiden Garcia PA-C Work Phone: [facility] 10-31-2022 10:11-0500 Body height 177.8 cm Aiden Garcia PA-C Work Phone: [facility] 10-31-2022 10:11-0500 Body mass index (BMI) [Ratio] 25.1 kg/m2 Aiden Garcia PA-C Work Phone: [facility] 10-31-2022 10:11-0500 Body temperature 98.29 [degF] Aiden Olivarezdwell PA-C Work Phone: [facility] 10-31-2022 10:11-0500 Body weight 79.33 kg Aidenrita OlivarezGarcia PA-C Work Phone: [facility] 10-31-2022 10:11-0500 Heart rate 80 /min Aiden Garcia PA-C Work Phone: [facility] 10-31-2022 10:11-0500 SaO2% (BldA) [Mass fraction] 99 % Aiden Garcia PA-C Work Phone: [facility] 10-25-2022 11:02-0500 Body height 177.8 cm Rabia Beattyester PA-C Work Phone: [facility] 10-25-2022 11:02-0500 Body mass index (BMI) [Ratio] 24.82 kg/m2 Rabia Beattyester PA-C Work Phone: [facility] 10-25-2022 11:02-0500 Body temperature 98.01 [degF] Rabia Beattyester PA-C Work Phone: [facility] 10-25-2022 11:02-0500 Body weight 78.47 kg Rabia Beattyester PA-C Work Phone: [facility] 10-25-2022 11:02-0500 Diastolic blood pressure 88 mm[Hg] Rabia Beattyester PA-C Work Phone: [facility] 10-25-2022 11:02-0500 Heart rate 66 /min Rabia Beattyester PA-C Work Phone: [facility] 10-25-2022 11:02-0500 SaO2% (BldA) [Mass fraction] 99 % Rabia Beattyester PA-C Work Phone: [facility] 10-25-2022 11:02-0500 Systolic blood pressure 137 mm[Hg] Rabia Beattyester PA-C Work Phone: [facility] 10-06-2022 08:25-0500 Respiratory rate 18 /min Taj Da Silva MD Work Phone: [email or web address] 10-06-2022 07:45-0500 Body temperature 97.39 [degF] Taj Da Silva MD Work Phone: [email or web address] 10-06-2022 07:45-0500 Diastolic blood pressure 98 mm[Hg] Taj Da Silva MD Work Phone: [employer] 10-06-2022 07:45-0500 Heart rate 60 /min Taj Da Silva MD Work Phone: [employer] 10-06-2022 07:45-0500 SaO2% (BldA) [Mass fraction] 98 % Taj Da Silva MD Work Phone: [employer] 10-06-2022 07:45-0500 Systolic blood pressure 164 mm[Hg] Taj Da Silva MD Work Phone: [employer] 10-05-2022 08:24-0500 Body height 177.8 cm Taj Da Silva MD Work Phone: [employer] 10-05-2022 08:24-0500 Body mass index (BMI) [Ratio] 25.1 kg/m2 Taj Da Silva MD Work Phone: [employer] 10-05-2022 08:24-0500 Body weight 79.33 kg Taj Da Silva MD Work Phone: [employer] 09-06-2022 09:04-0500 Diastolic blood pressure 91 mm[Hg] Mwh Rm [employer] 09-06-2022 09:04-0500 Heart rate 56 /min Mwh Rm [employer] 09-06-2022 09:04-0500 Systolic blood pressure 138 mm[Hg] Mwh Rm [employer] 09-06-2022 09:00-0500 Respiratory rate 20 /min Mwh Rm [facility] [facility] Encounters Encounter Date Encounter Type Care Provider Facility Start: 02-21-2023 End: 02-22-2023 [facility] Start: 02-21-2023 End: 02-21-2023 Subsequent hospital visit by physician Jose Lao MD Work Phone: [facility] Comment on above: Status post coronary artery bypass graft; Artificial pacemaker; Hypertension, unspecified type; SSS (sick sinus syndrome) (HCC); Hyperlipidemia, unspecified hyperlipidemia type Start: 01-30-2023 End: 02-22-[address] DOCTOR ROCHE Facility:[facility] Start: 01-27-2023 End: 01-27-[address] DOCTOR ROCHE Facility:[facility] Start: 11-21-2022 End: 11-25-2022 ambulatory RABIA SAMS [facility] Start: 11-21-2022 End: 11-21-2022 Postop follow up visit related to original px Rabia Sams PA-C Work Phone: [facility] Comment on above: S/P CABG (coronary a rtery bypass graft) (Primary Dx) Start: 11-20-2022 Orders Only Aiden cruz PA-C Work Phone: [facility] Comment on above: S/P CABG (coronary a rtery bypass graft) (Primary Dx) Start: 11-02-2022 Documentation procedure Fatuma Ramsay RN [facility] Comment on above: Phase II Cardiac Beti ab Start: 10-31-2022 End: 11-04-2022 ambulatory SHANON FLORENTINO [facility] Start: 10-31-2022 End: 10-31-2022 Postop follow up visit related to original px Aiden Garcia PA-C Work Phone: [facility] Comment on above: S/P CABG (coronary a rtery bypass graft) (Primary Dx) Start: 10-30-2022 Orders Only Rabia Sams PA-C Work Phone: [facility] Comment on above: S/P CABG (coronary a rtery bypass graft) (Primary Dx) Start: 10-25-2022 End: 10-29-2022 ambulatory SHANON [facility] Start: 10-25-2022 End: 10-25-2022 Postop follow up visit related to original px Rabia Xochitl Sams PA-C Work Phone: [facility] Comment on above: S/P CABG (coronary a rtery bypass graft) (Primary Dx) Start: 10-23-2022 Orders Only Aiden cruz PA-C Work Phone: [facility] Comment on above: S/P CABG (coronary a rtery bypass graft) (Primary Dx) Start: 10-14-2022 End: 10-15-2022 Evaluation and management of inpatient [facility] Start: 10-14-2022 End: 10-21-2022 Evaluation and management of inpatient [facility] Start: 10-05-2022 End: 10-06-2022 [facility] Start: 10-05-2022 End: 10-06-2022 Subsequent hospital visit by physician Taj Da Silva MD Work Phone: [facility]LE[facility] Comment on above: Post-op pain (Primar y Dx); SSS (sick sinus syndrome) ([facility]) Start: 09-14-2022 ambulatory LIVE Howard ty:SHAN Koch Start: 09-06-2022 End: 09-06-2022 Subsequent hospital visit by physician Sarah Stress Rm [facility] Start: 09-06-2022 End: 09-06-2022 [facility] Start: 09-06-2022 End: 09-06-2022 Subsequent hospital visit by physician Sarah Pat [facility] Comment on above: Arrived Abnormal EKG; Hypertension, unspecified type; Screening cholesterol level Start: 09-06-2022 End: 09-09-2022 [facility] Start: 09-06-2022 End: 09-08-2022 Subsequent hospital visit by physician Sarah Stress Rm [facility] Comment on above: Abnormal EKG; V-tach SOB (shortness of br eath); V-tach Arrived Start: 08-05-2022 ambulatory MD Yony Barros ility:SHAN [facility] Start: 08-02-2022 ambulatory Yony BUSBY Facili ty: Start: 07-19-2022 End: 07-22-2022 ambulatory TAJ DA SILVA [facility] Start: 07-19-2022 End: 07-21-2022 Subsequent hospital visit by physician [facility] Additional Xray At [facility] Comment on above: Heart murmur; Atrial dilatation, bilateral; Hypertension, unspecified type; Bradycardia; Abnormal cardiac rate; Chronic fatigue; Vitamin D deficiency Start: 05-18-2022 End: 05-19-[address] JOSE LAO . Facility: Procedures Date Procedure Procedure Detail Performing Clinician Start: 02-21-2023 Ecg routine ecg w/le ast 12 lds w/i&r Taj Da Silva MD Work Phone: Start: 02-21-2023 Comprehensive metabo lic panel Taj Da Silva MD Work Phone: Start: 02-21-2023 Lipid panel Taj hernández MD Work Phone: Start: 02-21-2023 PATIENT FASTING? Taj Da Silva MD Work Phone: Start: 11-21-2022 Ecg routine ecg w/le ast 12 lds w/i&r Aiden Garcia PA-C Work Phone: Start: 10-26-2022 History of coronary artery bypass grafting S/P CABG (coronary artery bypass graft) Rabia Sams PA-C Work Phone: Start: 10-06-2022 End: 10-06-2022 Ecg routine ecg w/least 12 lds w/i&r Taj Da Silav MD Work Phone: Start: 10-06-2022 Radiologic exam ches t 2 views Taj Da Silva MD Work Phone: Start: 10-06-2022 Basic metabolic pane l calcium total Taj Da Silva MD Work Phone: Start: 10-05-2022 Rhythm ecg 1-3 leads w/interpretation & report Unknown Provider Result Start: 10-05-2022 Radiologic exam ches t single view Taj Da Silva MD Work Phone: Start: 10-05-2022 End: 10-06-2022 Rhythm ecg 1-3 leads w/interpretation & report Unknown Provider Result Start: 10-05-2022 POLYMER ENGINEER REPORT Taj Da Silva MD Work Phone: Start: 10-05-2022 Fluoroscopy up to 1 hour physician/qhp time Taj Da Silva MD Work Phone: Start: 10-05-2022 End: 10-05-2022 Ins new/rplcmt prm pacemakr w/trans eltrd atrial Taj Da Silva MD Work Phone: Start: 09-06-2022 Ecg routine ecg w/le ast 12 lds w/i&r Taj Da Silva MD Work Phone: Start: 09-06-2022 Comprehensive metabo lic panel Taj Da Silva MD Work Phone: Start: 09-06-2022 Lipid panel Taj hernández MD Work Phone: Start: 09-06-2022 PATIENT FASTING? Taj Da Silva MD Work Phone: Start: 09-06-2022 Myocardial spect mul tiple studies Taj Da Silva MD Work Phone: Start: 07-19-2022 Radiologic exam ches t 2 views Taj Da Silva MD Work Phone: Start: 07-19-2022 Comprehensive metabo lic panel Taj Da Silva MD Work Phone: Start: 07-19-2022 PATIENT FASTING? Taj Da Silva MD Work Phone: Start: 07-19-2022 Ecg routine ecg w/le ast 12 lds w/i&r Taj Da Silva MD Work Phone: History of coronary artery bypass grafting S/P CABG (coronary artery bypass graft) Aiden ELLIOTTC Work Phone: History of coronary artery bypass grafting S/P CABG (coronary artery bypass graft) Rabia FAITH-C Work Phone: History of coronary artery bypass grafting S/P CABG (coronary artery bypass graft) Rabia FAITH-C Work Phone: History of coronary artery bypass grafting S/P CABG (coronary artery bypass graft) Aiden FAITH-C Work Phone: History of coronary artery bypass grafting S/P CABG (coronary artery bypass graft) Aiden FAITH-C Work Phone: History of coronary artery bypass grafting S/P CABG (coronary artery bypass graft) Rabia FAITH-C Work Phone: History of coronary artery bypass grafting Status post coronary artery bypass graft Jose Lao MD Work Phone: Plan of Treatment Date Care Activity Detail Author Start: 09-06-2027 Lipid panel Lipids [facility] Start: 07-19-2027 Lipid panel Lipids [facility] Start: 11-02-2025 Lipid panel Lipids [facility] Start: 02-22-2024 Lipid panel Lipids [facility] Start: 09-13-2023 History and physical examination, annual for health maintenance Wellness Visit [facility] Start: 03-07-2023 End: 03-07-2023 Patient encounter procedure 03/07/2023 Office Visit Cardiology Taj Da Silva MD [address] [place] [address] [facility] Economic Development Manager Start: 11-21-2022 End: 11-20-2023 12 lead ECG ECG 12 Lead ECG Routine S/P CABG (coronary artery bypass graft) Expected: 11/21/2022, Expires: 11/20/2023 [facility] Comment on above: Expected: 11/21/2022 , Expires: 11/20/2023 Start: 11-21-2022 End: 11-20-2023 Basic metabolic 2000 panel - Serum or Plasma Basic metabolic panel Lab Routine S/P CABG (coronary artery bypass graft) Expected: 11/21/2022, Expires: 11/20/2023 [facility] Comment on above: Expected: 11/21/2022 , Expires: 11/20/2023 Start: 11-21-2022 End: 11-20-2023 Standard chest X-ray XR Chest AP/PA and LAT Imaging Routine S/P CABG (coronary artery bypass graft) Expected: 11/21/2022, Expires: 11/20/2023 [facility] Work Phone: Comment on above: Expected: 11/21/2022 , Expires: 11/20/2023 Start: 11-21-2022 End: 11-21-2022 Follow-up encounter 11/21/2022 Follow-Up Cardiology [facility] Start: 10-31-2022 End: 10-31-2022 Follow-up encounter 10/31/2022 Follow-Up Cardiology [facility] Start: 10-25-2022 End: 10-23-2023 Basic metabolic 2000 panel - Serum or Plasma Basic metabolic panel Lab Routine S/P CABG (coronary artery bypass graft) Expected: 10/25/2022, Expires: 10/23/2023 [facility] Comment on above: Expected: 10/25/2022 , Expires: 10/23/2023 Start: 10-25-2022 End: 10-23-2023 Standard chest X-ray XR Chest AP/PA and LAT Imaging Routine S/P CABG (coronary artery bypass graft) Expected: 10/25/2022, Expires: 10/23/2023 [facility] Work Phone: Comment on above: Expected: 10/25/2022 , Expires: 10/23/2023 Start: 10-25-2022 End: 10-25-2022 Follow-up encounter 10/25/2022 Follow-Up Cardiology [facility] Start: 10-14-2022 End: 10-14-2022 Patient encounter procedure 10/14/2022 Procedure visit Cardiology Taj Da Silva MD [address] [place] [phone] [facility] Start: 10-12-2022 End: 10-12-2022 Patient encounter procedure 10/12/2022 Office Visit Cardiology Taj Da Silva MD [address] [place] [phone] [facility] Start: 10-05-2022 End: 10-05-2022 Patient encounter procedure 10/05/2022 Procedure visit Cardiology Taj Da Silva MD [address] [place] [phone] [facility] Start: 10-05-2022 End: 10-05-2022 Admission to same day surgery center 10/05/2022 Surgery IP Unit Taj Da Silva MD [address] [place] [phone] PACEMAKER INSERTION PERMANENT [facility] Comment on above: PACEMAKER INSERTION PERMANENT Start: 10-05-2022 End: 10-05-2022 Ins new/rplcmt prm pacemakr w/trans eltrd atrial PACEMAKER INSERTION PERMANENT Sick sinus syndrome (HCC) 10/05/2022 8:57 AM EST [facility] Start: 10-05-2022 Subsequent hospital visit by physician 10/05/2022 Hospital Encounter IP Unit Taj Da Silva MD [address] [place] [phone] [facility] Start: 08-01-2022 End: 08-01-2022 Patient encounter procedure 08/01/2022 Office Visit Cardiology Taj Da Silva MD [address] [place] [phone] [facility] Start: 07-19-2022 Annual Wellness Visi t (AWV) Annual Wellness Visit (AWV) [facility] Start: 04-25-2022 Influenza vaccination Flu vaccine (# 1) [facility] Start: 03-24-2022 COVID-19 Vaccine (5 - Booster for Pfizer series) COVID-19 Vaccine (5 - Booster for Pfizer series) [facility] Start: 06-24-2021 History and physical examination, annual for health maintenance Wellness Visit [facility] Start: 2017 Fall risk assessment Falls Risk Asse ssment [place] [facility] Start: 2017 Pneumococcal 65+ yea rs Vaccine (1 - PCV) Pneumococcal 65+ years Vaccine (1 - PCV) [facility] Start: 2002 Administration of he rpes zoster vaccine Zoster Vaccines (1 of 2) [facility] Start: 2002 Screening for malign ant neoplasm of colon Flexible sigmoidoscopy [facility] Start: 2002 Shingles vaccine (1 of 2) Shingles vaccine (1 of 2) [facility] Start: 1997 Screening for malign ant neoplasm of colon [facility] Start: 1971 DTaP/Tdap/Td vaccine (1 - Tdap) DTaP/Tdap/Td vaccine (1 - Tdap) [facility] Start: 1970 Hepatitis C screening B ON [facility] Start: 1964 Depression Screen Depression Screen [facility] Start: 1964 Depression screening using PHQ-9 (Patient Health Questionnaire 9) score Depression Screening (PHQ-2/9) [facility] Start: 1958 Pneumococcal Vaccine : Age 65+ (1 - PCV) Pneumococcal Vaccine: Age 65+ (1 - PCV) [facility] Start: 1952 Prostate specific antigen measurement PSA Level [facility] Start: 1952 Screening for malign ant neoplasm of colon [facility] Start: 1952 Tetanus vaccination Tetanus: Every 1 0yrs [facility] End: 10-31-2023 Basic metabolic 2000 panel - Serum or Plasma Basic Metabolic Panel Lab STAT S/P CABG (coronary artery bypass graft) 1 Occurrences starting 10/30/2022 until 10/31/2023 [facility] Comment on above: 1 Occurrences starti ng 10/30/2022 until 10/31/2023 End: 09-06-2022 Cardiac Stress Test- W Pharm Cardiac Stress Test- W Pharm Cardiac Services Routine One Time for 1 Occurrences starting 09/06/2022 until 09/06/2022 [employer] Phone: Comment on above: One Time for 1 Occur rences starting 09/06/2022 until 09/06/2022 End: 09-06-2022 ECHO Complete 2D W Doppler W Color ECHO Complete 2D W Doppler W Color Echocardiography Routine SOB (shortness of breath) V-tach 1 Occurrences starting 09/06/2022 until 09/06/2022 [employer] Phone: Comment on above: 1 Occurrences starti ng 09/06/2022 until 09/06/2022 EKG 12 Lead EKG 12 Lead ECG Routine Abnormal EKG Hypertension, unspecified type Screening cholesterol level 09/06/2022 1:17 PM EST [employer] Phone: EKG 12 Lead EKG 12 Lead ECG Routine 10/06/2022 7:02 AM EST [employer] Phone: EKG 12 Lead EKG 12 Lead ECG Routine Status post coronary artery bypass graft Artificial pacemaker Hypertension, unspecified type SSS (sick sinus syndrome) ([facility]) Hyperlipidemia, unspecified hyperlipidemia type 02/21/2023 8:40 AM EDT [employer] Phone: End: 09-06-2022 Exercise stress test study Cardiac Stress Test Exercise - Treadmill Cardiac Services Routine One Time for 1 Occurrences starting 09/06/2022 until 09/06/2022 [employer] Phone: Comment on above: One Time for 1 Occur rences starting 09/06/2022 until 09/06/2022 End: 10-05-2022 Intermittent pulse oximetry Pulse Oximetry Spot Check Respiratory Care Routine One Time for 1 Occurrences starting 10/05/2022 until 10/05/2022 [employer] Phone: Comment on above: One Time for 1 Occur rences starting 10/05/2022 until 10/05/2022 End: 07-19-2022 Lipid panel [employer] Phone: Comment on above: 1 Occurrences starti ng 07/19/2022 until 07/19/2022 Oxygen therapy [[facility] Data Set] Initiate Oxygen Therapy Protocol Respiratory Care Routine As Needed until discontinued starting 10/05/2022 [employer] Phone: Comment on above: As Needed until disc ontinued starting 10/05/2022 End: 10-30-2023 Standard chest X-ray XR Chest AP/PA and LAT Imaging Routine S/P CABG (coronary artery bypass graft) 1 Occurrences starting 10/30/2022 until 10/30/2023 [employer] Phone: Comment on above: 1 Occurrences starti ng 10/30/2022 until 10/30/2023 End: 09-06-2022 Stress test, myoview Stress test, myoview Cardiac Services Routine Abnormal EKG V-tach 1 Occurrences starting 09/06/2022 until 09/06/2022 [employer] Phone: Comment on above: 1 Occurrences starti ng 09/06/2022 until 09/06/2022 Payers Date Payer Category Payer Unknown [id number] 2019 Unknown [employer] [id number] 2019-Present [phone] [place] [address] [id number] 2017 Medicare MEDICARE MEDICAR E PART A & B [id number] 2017-Present [phone] CGS [id number] [place] [address] [id number] [id number] 2014 Unknown [id number].3 .[id number] 1959 Medicare [id number] .[id number] 1959 Medicare [id number] 1952 Unknown [id number] 2.16.840.1.989464.3.579.2.727 1952 Unknown [id number] 2.16.840.1.418860.3.579.2.72 1952 Unknown [id number] 2.16.840.1.951321.3.579.2.72 1952 Unknown [id number] 2.16.840.1.691687.3.579.2. 1952 Unknown [id number] 2.16.840.1.128111.3.579.2. 1952 Unknown [id number] 2.16.840.1.570736.3.579.2. 1952 Unknown [id number] 2.16.840.1.065949.3.579.2. 1952 Unknown [id number] 2.16.840.1.228666.3.579.2. 1952 Unknown [id number] 2.16.840.1.038156.3.579.2. 1952 Unknown [id number] 2.16.840.1.997149.3.579.2. 1952 Unknown [id number] 2.16.840.1.815899.3.579.2. 1952 Unknown [id number] 2.16.840.1.004875.3.579.2. 1952 Unknown [id number] 2.16.840.1.825841.3.579.2. 1952 Unknown [id number] 2.16.840.1.775153.3.579.2.903 1952 Unknown [id number] 2.16.840.1.662546.3.579.2.593 1952 Unknown [id number] 2.16.840.1.593210.3.579.2.593 1952 Unknown [id number] 2.16.840.1.145580.3.579.2.593 1952 Unknown [id number] 2.16.840.1.122026.3.579.2.174 1952 Unknown [id number] 2.16.840.1.769985.3.579.2.174 1952 Unknown [id number] 2.16.840.1.983310.3.579.2.174 1952 Unknown [id number] 2.16.840.1.604868.3.579.2.174 1952 Unknown [id number] 2.16.840.1.934013.3.579.2.174 1952 Unknown [id number] 2.16.840.1.651055.3.579.2.174 1952 Unknown [id number] 2.16.840.1.466119.3.579.2.174 1952 Unknown [id number] 2.16.840.1.462083.3.579.2.174 1952 Unknown [id number] 2.16.840.1.830522.3.579.2.174 1952 Unknown [id number] 2.16.840.1.813064.3.579.2.174 1952 Unknown [id number] 2.16.840.1.060395.3.579.2.174 1952 Unknown [id number] 2.16.840.1.863263.3.579.2.174 1952 Unknown [id number] 2.16.840.1.398255.3.579.2.174 1952 Unknown [id number] 2.16.840.1.549585.3.579.2.174 1952 Unknown [id number] 2.16.840.1.332077.3.579.2.174 1952 Unknown [id number] 2.16.840.1.734378.3.579.2.174 Social History Date Type Detail Facility Tobacco smoking stat [facility] Tobacco smoking consumption unknown [employer] Phone: Start: 1950 Sex Assigned At Not on file [facility] Phone: Start: 08-29-2022 End: 10-05-2022 Tobacco smoking status [facility] Never smoked tobacco [employer] Phone: Start: 08-29-2022 End: 10-05-2022 Tobacco use and exposure User of smokeless tobacco [employer] Phone: Start: 09-06-2022 End: 11-29-2022 Alcohol intake Lifetime non-drinker (finding) [employer] Phone: History of tobacco use Chews Tobacco [employer] Phone: Start: 10-05-2022 History SDOH Alcohol Frequency 1 [employer] Phone: Start: 09-25-2022 End: 11-21-2022 Exposure to SARS-CoV-2 (event) Not sure [employer] Start: 10-14-2022 Education 14 [facility] Start: 10-25-2022 Tobacco Comment Ready to quit [facility] Medical Equipment Procedure Code Equipment Code Equipment Origin al Text Equipment Identifier Dates Lead Pacemkr Bip lr Ventric Str Scrw 45cm - [id number] Start: 10-05-2022 Pacemaker Card 22.5gm W50.8xh46.6mm D7.4mm Ti Polyur Inez - [id number] Start: 10-05-2022 Hemostat 8 X 12. 5cm X 10mm Surgifoam Gelatin Sponge - Sna [id number] Start: 10-17-2022 Clinical Notes 09-06-2022 to 11-21-2022 Rabia Sasm PA-C - 11/21/2022 1:31 PM ESTAssessment & Plan Note - Rabia Sams PA-C - 11/21/2022 1:28 PM ESTPatient InstructionsPatient InstructionsPatient Instructions Note Date & Type Note Facility 11-21-2022 History of Presen t illness Narrative Images from the original note were not included. Cardiothoracic Surgery Clinic Follow-up Heart & Vascular [facility] 11/21/2022 Rabia Sams PA-C [address] [facility] Medical Office [facility] [address] Patient: Naveed Pulido Date of : 1950 (72 y.o.) PCP: Shanon Da Silva MD Assessment & Plan S/P CABG (coronary artery bypass graft) You may drive. You may lift up to 20 lbs for the next 5 weeks then no restrictions. Please do cardiac rehab. You no longer need the support hose and heart hugger. Please follow-up with your primary care provider and your maintenance controller. If you have any questions regarding your heart surgery in the future, please feel free to call. Follow-up: No follow-ups on file. Chief Complaint: Follow-up (S/P CABG x [address] Gabriel Landon on 10/17/22 and right lower extremity endoscopic greater saphenous vein harvesting by physician assistant professor of german) Subjective History of Present Illness: Naveed Pulido is a 72 y.o. male S/P CABG x 2 with JEROME to LAD and SVG to ramus intermedius by Dr. Gabriel Landon on 10/17/22 and right lower extremity endoscopic greater saphenous vein harvesting by physician assistant professor of german. He is here today for his 5-week postoperative follow up appointment and is accompanied by his . He ambulates easily into the exam room and is wearing his heart hugger. He tells me that he feels great overall, and has been able to walk about 30 minutes at a time (which he has been doing on the treadmill due to the weather). He achieves approximately 2500 mL on incentive spirometry. His bowel movements have regulated and he is voiding without difficulty. He does endorse some occasional tenderness and discomfort/tingling sensations along the left chest wall around the site that the left internal mammary artery was harvested. I reassured him that these sensations are common in that area postoperatively and should continue to decrease with time. He denies chest pain, shortness of breath, cough, palpitations, fevers, chills, nausea or abdominal pain. His blood pressure today in the office was very elevated, 169/107 and then 159/98. Upon recheck 15 minutes later it had still not improved, approximately 165 systolic. He shows me a log of his blood pressures from home and they do appear to be controlled over the last week, however his blood pressure cuff is a wrist monitoring device. Prior to surgery he was taking Losartan 100 mg PO daily for hypertension. I resumed the Losartan today at half his previous dose, 50 mg PO daily. He will be seeing Dr. Da Silva in the office next week on 11/29/22 and he will bring his home cuff to that appointment to see if it correlates, and the losartan dose can be further adjusted at that time if needed. His EKG showed NSR, rate 63 bpm, no ST segment elevations or depressions. CXR with sternal wires aligned and unchanged from previous exam. Pacemaker in place. No pleural effusion or pneumothorax. Sternal incision and left lower extremity incisions are well-healed, no erythema or edema. Photographs of the incision sites shown below for reference. At this time, I advised Mr. Pulido that the has recovered very well in the postoperative period and will no longer need follow up with cardiothoracic surgery. He should continue to follow up with his primary care provider and with his maintenance controller on a regular basis. It has been a pleasure to be involved in the care of Mr. Pulido. Objective Tobacco Use Smoking Status Never Smokeless Tobacco Current Types: Chew Tobacco Comments Ready to quit ECG 12 Lead Final Result by Rabia Sams PA-C (11/21/2022 1102) Cardiac Catheterization Final Result by Shanon Da Silva MD (10/14/2022 1123) HOME Medications: Patient's Medications New Prescriptions LOSARTAN (COZAAR) 50 MG TABLET Take 1 (one) tablet (50 mg total) by mouth daily . Previous Medications ALLOPURINOL (ZYLOPRIM) 100 MG TABLET Take 1 (one) tablet (100 mg total) by mouth daily . ASPIRIN 81 MG EC TABLET Take 1 (one) tablet (81 mg total) by mouth daily . ATORVASTATIN (LIPITOR) 10 MG TABLET Take 1 (one) tablet (10 mg total) by mouth nightly . CLOPIDOGREL (PLAVIX) 75 MG TABLET Take 1 (one) tablet (75 mg total) by mouth daily Start: 10/22/22. DORZOLAMIDE-TIMOLOL (COSOPT) 22.3-6.8 MG/ML OPHTHALMIC SOLUTION 22 (twenty two) drops . LATANOPROST (XALATAN) 0.005 % OPHTHALMIC SOLUTION Administer 1 (one) drop to both eyes at bedtime . METOPROLOL SUCCINATE (TOPROL-XL) 25 MG 24 HR TABLET Take 0.5 (one-half) tablet (12.5 mg total) by mouth daily Start: 10/22/22. Modified Medications No medications on file Discontinued Medications DOCUSATE SODIUM (COLACE) 100 MG CAPSULE Take 1 (one) capsule (100 mg total) by mouth 2 (two) times a day Hold if you have loose stool . PANTOPRAZOLE (PROTONIX) 40 MG TABLET Take 1 (one) tablet (40 mg total) by mouth daily . Vital Signs: BP (!) 169/107 (BP Location: Right arm, Patient Position: Sitting) Pulse 63 Ht 5' 10 Wt 79.8 kg (176 lb) SpO2 100% BMI 25.25 kg/m Physical Exam Vitals reviewed. Constitutional: General: He is not in acute distress. Appearance: Normal appearance. He is normal weight. He is not diaphoretic. HENT: Head: Normocephalic and atraumatic. Cardiovascular: Rate and Rhythm: Normal rate and regular rhythm. Pulses: Normal pulses. Heart sounds: Normal heart sounds. No murmur heard. No friction rub. No gallop. Pulmonary: Effort: Pulmonary effort is normal. No respiratory distress. Breath sounds: Normal breath sounds. No wheezing, rhonchi or rales. Abdominal: General: Abdomen is flat. There is no distension. Palpations: Abdomen is soft. Tenderness: There is no abdominal tenderness. Musculoskeletal: General: Normal range of motion. Right lower leg: No edema. Left lower leg: No edema. Skin: General: Skin is warm and dry. Capillary Refill: Capillary refill takes less than 2 seconds. Findings: No bruising, erythema, lesion or rash. Neurological: General: No focal deficit present. Mental Status: He is alert and oriented to person, place, and time. Psychiatric: Mood and Affect: Mood normal. Behavior: Behavior normal. Labs: I personally reviewed and interpreted the labs documented below. Lab Results Component Value Date GLUCOSE 86 11/21/2022 CALCIUM 9.9 11/21/2022 NA 142 11/21/2022 K 4.5 11/21/2022 CL 111 (H) 11/21/2022 BUN 24 11/21/2022 CREATININE 1.18 11/21/2022 documented in this encounter [facility] 11-21-2022 Evaluation + Plan note Associated Problem(s): S/P CABG (coronary artery bypass graft) You may drive. You may lift up to 20 lbs for the next 5 weeks then no restrictions. Please do cardiac rehab. You no longer need the support hose and heart hugger. Please follow-up with your primary care provider and your maintenance controller. If you have any questions regarding your heart surgery in the future, please feel free to call. [facility] 11-21-2022 Miscellaneous Notes Associated Problem(s): S/P CABG (coronary artery bypass graft) You may drive. You may lift up to 20 lbs for the next 5 weeks then no restrictions. Please do cardiac rehab. You no longer need the support hose and heart hugger. Please follow-up with your primary care provider and your maintenance controller. If you have any questions regarding your heart surgery in the future, please feel free to call. documented in this encounter [facility] 11-21-2022 Instructions Rabia Sams PA-C - 11/21/2022 11:06 AM EST Please spanish moss picker prescriptions and resume medications today Take losartan 50 mg at least 2 hours after metoprolol. You may drive. You may lift up to 20 lbs for the next 5 weeks then no restrictions. Please do cardiac rehab. You no longer need the support hose and heart hugger. Please follow-up with your primary care provider and your maintenance controller. If you have any questions regarding your heart surgery in the future, please feel free to call. documented in this encounter [facility] 11-02-2022 History of Presen t illness Narrative Cardiac Rehab referral received s/p CABG on 10/21/22. CR staff contacted pt to schedule CR consultation and pt requests to do his rehab at [facility]. Referral faxed. documented in this encounter [facility] 10-31-2022 History of Presen t illness Narrative Images from the original note were not included. October 31, 2022 RE: Naveed Pulido : 1950 ASSESSMENT/PLAN: 72-year-old male admitted to [facility] on October 14, 2022 after elective heart cath revealed severe left main coronary disease of 80% Coronary artery disease with 80% left main LVEF 55% Status post CABG x 2 with JEROME to LAD and SVG from ascending aorta to ramus intermedius with right leg EVH on October 17, [address] Vladimir Landon Hypertension Sick sinus syndrome Status post permanent pacemaker October 05, 2022 History TIA Chew tobacco use Gout Glaucoma left eye PLAN: He will continue to follow open heart surgery discharge instructions He will continue to ambulate as he is doing He will continue to use the incentive spirometer as he is doing He will continue to wash incisions with soap and water daily No medication changes were made at this time He will return to see us again in 3 weeks for final visit with the cardiac surgery service If he has any questions or concerns in the meantime, he is more than welcome to call SUBJECTIVE: He returns today for a follow-up visit. He is accompanied by his . He is doing well at this time and denies any complaints and specifically chest pain, shortness of breath, dizziness. He states that he is walking 4 times a day for 20 minutes at a time. He is getting up to 2500 on his incentive spirometer. He has no bowel or bladder problems. OBJECTIVE: BP 121/81 (BP Location: Left arm, Patient Position: Sitting, BP Cuff Size: Adult) Pulse 80 Temp 98.3 F (36.8 C) Ht 5' 10 Wt 79.3 kg (174 lb 14.4 oz) SpO2 99% BMI 25.10 kg/m Physical Exam Constitutional: General: He is not in acute distress. Appearance: Normal appearance. Cardiovascular: Rate and Rhythm: Normal rate and regular rhythm. Pulses: Normal pulses. Heart sounds: Normal heart sounds. No murmur heard. No friction rub. No gallop. Pulmonary: Effort: Pulmonary effort is normal. Breath sounds: Normal breath sounds. Musculoskeletal: Right lower leg: No edema. Left lower leg: No edema. Skin: General: Skin is warm and dry. Comments: He is wearing a heart hugger and bilateral support hose. Chest and right leg EVH incisions look great and are clean, dry, intact. Fine, dry scabbing noted along the incision lines. Neurological: General: No focal deficit present. Mental Status: He is alert and oriented to person, place, and time. Mental status is at baseline. Psychiatric: Mood and Affect: Mood normal. Behavior: Behavior normal. Thought Content: Thought content normal. Labs: Latest Reference Range & Units 10/31/22 09:39 Sodium 135 - 145 mmol/L 142 Potassium 3.5 - 5.1 mmol/L 5.1 Chloride 98 - 108 mmol/L 113 (H) Bicarbonate 21 - 32 mmol/L 25 Anion Gap 10 - 20 mmol/L 9 (L) Glucose 65 - 99 mg/dL 78 BUN 8 - 25 mg/dL 29 (H) Creatinine 0.80 - 1.30 mg/dL 1.20 eGFR >=60 mL/min/1.73 m2 65 BUN/Creatinine Ratio 10.0 - 20.0 24.2 (H) Calcium 8.4 - 10.2 mg/dL 9.8 (H): Data is abnormally high (L): Data is abnormally low Chest x-ray: Sternal wires aligned and intact and lung bellamy reveal tiny bilateral pleural effusions Patient's Medications New Prescriptions No medications on file Previous Medications ALLOPURINOL (ZYLOPRIM) 100 MG TABLET Take 1 (one) tablet (100 mg total) by mouth daily . ASPIRIN 81 MG EC TABLET Take 1 (one) tablet (81 mg total) by mouth daily . ATORVASTATIN (LIPITOR) 10 MG TABLET Take 1 (one) tablet (10 mg total) by mouth nightly . BISACODYL (DULCOLAX) 10 MG SUPPOSITORY Insert 1 (one) suppository (10 mg total) into the rectum daily as needed for constipation . CLOPIDOGREL (PLAVIX) 75 MG TABLET Take 1 (one) tablet (75 mg total) by mouth daily Start: 10/22/22. DOCUSATE SODIUM (COLACE) 100 MG CAPSULE Take 1 (one) capsule (100 mg total) by mouth 2 (two) times a day Hold if you have loose stool . DORZOLAMIDE-TIMOLOL (COSOPT) 22.3-6.8 MG/ML OPHTHALMIC SOLUTION 22 (twenty two) drops . LATANOPROST (XALATAN) 0.005 % OPHTHALMIC SOLUTION Administer 1 (one) drop to both eyes at bedtime . METOPROLOL SUCCINATE (TOPROL-XL) 25 MG 24 HR TABLET Take 0.5 (one-half) tablet (12.5 mg total) by mouth daily Start: 10/22/22. PANTOPRAZOLE (PROTONIX) 40 MG TABLET Take 1 (one) tablet (40 mg total) by mouth daily . Modified Medications No medications on file Discontinued Medications No medications on file Sincerely yours; Aiden Garcia PA-C documented in this encounter [facility] 10-31-2022 Instructions Aiden Garcia PA-C - 10/31/2022 10:37 AM EST Please continue to follow open heart surgery discharge instructions. Wash incisions with soap and water daily. Use the incentive spirometer every 2 hours 10 reps during the day. Please walk at least 4 times a day for 5 minutes or more at a time. Call if you have any questions or concerns. documented in this encounter [facility] 10-26-2022 Evaluation + Plan note Associated Problem(s): S/P CABG (coronary artery bypass graft) Increase stool softener to twice daily. Can also try milk of magnesia, miralax, or suppository (all over the counter), whichever you prefer, if needed for constipation Continue log of blood pressures daily 1. Continue strict sternal precautions, no lifting more than 10 pounds and no driving for 5 weeks. 2. Continue to use incentive spirometer. 3. Continue strict leg elevation when not ambulating or eating meals. 4. Continue to shower daily, wash incisions with warm soap and water, pat dry. 5. Continue to increase ambulation 4 times daily as tolerated. Contact the office of Dr. Vladimir Landon and Dr. Joselo Iraheta should you have any questions or concerns regarding your ongoing recovery from heart surgery at [phone], option #3 after 5:00 PM [facility] 10-26-2022 History of Presen t illness Narrative Images from the original note were not included. Cardiothoracic Surgery Clinic Follow-up Heart & Vascular [facility] 10/25/2022 Rabia Sams PA-C [address] [place] [address] Medical Office [facility] [address] Patient: Naveed Pulido Date of : 1950 (72 y.o.) PCP: Shanon Da Silva MD Assessment & Plan S/P CABG (coronary artery bypass graft) Increase stool softener to twice daily. Can also try milk of magnesia, miralax, or suppository (all over the counter), whichever you prefer, if needed for constipation Continue log of blood pressures daily 1. Continue strict sternal precautions, no lifting more than 10 pounds and no driving for 5 weeks. 2. Continue to use incentive spirometer. 3. Continue strict leg elevation when not ambulating or eating meals. 4. Continue to shower daily, wash incisions with warm soap and water, pat dry. 5. Continue to increase ambulation 4 times daily as tolerated. Contact the office of Dr. Vladimir Landon and Dr. Joselo Iraheta should you have any questions or concerns regarding your ongoing recovery from heart surgery at [phone], option #3 after 5:00 PM Follow-up: No follow-ups on file. Chief Complaint: Follow-up Subjective History of Present Illness: Naveed Pulido is a 72 y.o. male S/P CABG x 2 with JEROME to LAD and SVG to ramus intermedius by Dr. Gabriel Landon on 10/17/22 and right lower extremity endoscopic greater saphenous vein harvesting by physician assistant professor of german. He is here today for his one week postoperative follow up appointment and is accompanied by his . He is wearing his heart hugger and bilateral compression stockings. He feels well overall and states that his pain has been very well controlled just with the occasional tylenol. He did have one episode of feeling weak in the shower yesterday, however this resolved fairly quickly. At that time his blood pressure was a bit lower than usual at 101 systolic. Looking at the log of his blood pressures over the past few days he appears to range from 101-128 systolic. He has been walking frequently, at least 10 minutes at a time every 2 hours. He is achieving approximately 2000 mL on incentive spirometry. He does complain that his stools have been extremely hard and he is having a difficult time going even with the stool softener. He also stated that his stools are very black. I instructed him to increase the Colace to twice daily and to stop the iron supplementation. If he is still feeling constipated, he can try either Miralax, milk of magnesia, or suppositories as needed. His sternal incision and right lower extremity incisions are well-approximated, clean, dry, and intact. I removed the steri strips from the sternum and removed the maria from the right leg. Photographs are shown below for reference. He has been showering daily and washing the incisions with gentle soap and water. CXR shows sternal wires aligned and unchanged from previous exam. Small bilateral pleural effusions are noted. Objective Tobacco Use Smoking Status Never Smokeless Tobacco Current Types: Chew Tobacco Comments Ready to quit ECG 12 Lead Final Result by Interface, Lab Results In Nisula Samaria (10/21/2022 1124) Cardiac Catheterization Final Result by Shanon Da Silva MD (10/14/2022 1123) HOME Medications: Patient's Medications New Prescriptions No medications on file Previous Medications ALLOPURINOL (ZYLOPRIM) 100 MG TABLET Take 1 (one) tablet (100 mg total) by mouth daily . ASPIRIN 81 MG EC TABLET Take 1 (one) tablet (81 mg total) by mouth daily . ATORVASTATIN (LIPITOR) 10 MG TABLET Take 1 (one) tablet (10 mg total) by mouth nightly . BISACODYL (DULCOLAX) 10 MG SUPPOSITORY Insert 1 (one) suppository (10 mg total) into the rectum daily as needed for constipation . CLOPIDOGREL (PLAVIX) 75 MG TABLET Take 1 (one) tablet (75 mg total) by mouth daily Start: 10/22/22. DORZOLAMIDE-TIMOLOL (COSOPT) 22.3-6.8 MG/ML OPHTHALMIC SOLUTION 22 (twenty two) drops . LATANOPROST (XALATAN) 0.005 % OPHTHALMIC SOLUTION Administer 1 (one) drop to both eyes at bedtime . METOPROLOL SUCCINATE (TOPROL-XL) 25 MG 24 HR TABLET Take 0.5 (one-half) tablet (12.5 mg total) by mouth daily Start: 10/22/22. PANTOPRAZOLE (PROTONIX) 40 MG TABLET Take 1 (one) tablet (40 mg total) by mouth daily . Modified Medications Modified Medication Previous Medication DOCUSATE SODIUM (COLACE) 100 MG CAPSULE docusate sodium (COLACE) 100 MG capsule Take 1 (one) capsule (100 mg total) by mouth 2 (two) times a day Hold if you have loose stool . Take 1 (one) capsule (100 mg total) by mouth daily Hold if you have loose stool Start: 10/22/22. Discontinued Medications FERROUS SULFATE 325 (65 FE) MG TABLET Take 1 (one) tablet (325 mg total) by mouth 3 (three) times a day with meals . Vital Signs: BP 137/88 (BP Location: Left arm, Patient Position: Sitting) Pulse 66 Temp 98 F (36.7 C) Ht 5' 10 Wt 78.5 kg (173 lb) SpO2 99% BMI 24.82 kg/m Physical Exam Vitals reviewed. Constitutional: General: He is not in acute distress. Appearance: Normal appearance. He is normal weight. He is not diaphoretic. HENT: Head: Normocephalic and atraumatic. Right Ear: External ear normal. Left Ear: External ear normal. Mouth/Throat: Mouth: Mucous membranes are moist. Cardiovascular: Rate and Rhythm: Normal rate and regular rhythm. Pulses: Normal pulses. Heart sounds: Normal heart sounds. No murmur heard. No friction rub. No gallop. Pulmonary: Effort: Pulmonary effort is normal. No respiratory distress. Breath sounds: Normal breath sounds. No wheezing, rhonchi or rales. Abdominal: General: There is no distension. Palpations: Abdomen is soft. Tenderness: There is no abdominal tenderness. Musculoskeletal: Right lower leg: No edema. Left lower leg: No edema. Skin: General: Skin is warm and dry. Capillary Refill: Capillary refill takes less than 2 seconds. Findings: Bruising (R EVH tunnel site; improving) present. Comments: Sternal incision and right lower extremity incision well-approximated, clean, dry, intact. Fine remnant scabbing present. No erythema or drainage Neurological: General: No focal deficit present. Mental Status: He is alert and oriented to person, place, and time. Psychiatric: Mood and Affect: Mood normal. Behavior: Behavior normal. Labs: I personally reviewed and interpreted the labs documented below. Lab Results Component Value Date GLUCOSE 69 10/25/2022 CALCIUM 9.6 10/25/2022 NA 142 10/25/2022 K 4.4 10/25/2022 CL 111 (H) 10/25/2022 BUN 28 (H) 10/25/2022 CREATININE 1.15 10/25/2022 documented in this encounter [facility] 10-26-2022 Miscellaneous Notes Associated Problem(s): S/P CABG (coronary artery bypass graft) Increase stool softener to twice daily. Can also try milk of magnesia, miralax, or suppository (all over the counter), whichever you prefer, if needed for constipation Continue log of blood pressures daily 1. Continue strict sternal precautions, no lifting more than 10 pounds and no driving for 5 weeks. 2. Continue to use incentive spirometer. 3. Continue strict leg elevation when not ambulating or eating meals. 4. Continue to shower daily, wash incisions with warm soap and water, pat dry. 5. Continue to increase ambulation 4 times daily as tolerated. Contact the office of Dr. Vladimir Landon and Dr. Joselo Iraheta should you have any questions or concerns regarding your ongoing recovery from heart surgery at [phone], option #3 after 5:00 PM documented in this encounter [facility] 10-25-2022 Instructions Rabia Sams PA-C - 10/25/2022 11:53 AM EST Increase stool softener to twice daily. Can also try milk of magnesia, miralax, or suppository (all over the counter), whichever you prefer, if needed for constipation Continue log of blood pressures daily 1. Continue strict sternal precautions, no lifting more than 10 pounds and no driving for 5 weeks. 2. Continue to use incentive spirometer. 3. Continue strict leg elevation when not ambulating or eating meals. 4. Continue to shower daily, wash incisions with warm soap and water, pat dry. 5. Continue to increase ambulation 4 times daily as tolerated. Contact the office of Dr. Vladimir Landon and Dr. Joselo Iraheta should you have any questions or concerns regarding your ongoing recovery from heart surgery at [phone], option #3 after 5:00 PM documented in this encounter [facility] 10-06-2022 History of Presen t illness Narrative Discharge instructions given to both patient and with emphasis on follow up appointments, signs of infection, how to contact [employer] for home monitoring device, medications including new medications and side effects, in particular position changes with metoprolol. Both pt and verbalize understanding and many questions answered. Cardiology He had WCT prior to ppm, therefore, will start Lopressor 25 mg bid for cardioprotection. Taj Da Silva MD Cardiology CXR looks good. Will check ppm and if OK will discharge. See in 1 week. Taj Da Silva MD SW and real estate transaction manager met with pt and spouse to complete assessment. Pt is alert and oriented and cooperative with assessment. Pt is a 72 year old male admitted for pacemaker implant. Pt lives with his spouse in their home in [place]. Pt does not use any [facility] or community services at home. Pt and spouse both drive and are able to get to appointments. Pt is a full code and follows with Dr Lao as PCP. Pt states that he has advance directives filled out at home that just need notarized and they can't find a notary. SW informed that they can have 2 non related witnesses and this is legal as well. Pt's spouse will be decision maker for him if needed. Pt reports that his medications are affordable. Pt plans to return home with spouse tomorrow at discharge. Pt identifies no discharge needs or concerns at this time. SW will remain available as needed. Gilda KRUEGER 10/05/2022 documented in this encounter [facility] Phone: 09-06-2022 History of Presen t illness Narrative [facility] Preadmission Testing Name: Naveed Pulido : 1950 Patient (home) Procedure: Pacemaker Insertion Date of Procedure: 10/05/22 Surgeon: No att. providers found Ht: Wt: Wt method: Allergies: Allergies Allergen Reactions Codeine There were no vitals filed for this visit. No LMP for male patient. Do you take blood thinners? [x] Yes [] No Instructed to stop blood thinners prior to procedure? [] Yes [] No [] N/A Do you have sleep apnea? [] Yes [x] No Do you have acid reflux ? [] Yes [x] No Do you have hiatal hernia? [] Yes [x] No Do you ever experience motion sickness? [] Yes [x] No Have you had a respiratory infection or sore throat in last 4 weeks before surgery? [] Yes [x] No Do you have poorly controlled asthma or COPD? Difficulty with intubation in past? [] Yes [x] No [] Yes [x] No Do you have a history of angina in the last month or symptomatic arrhythmia? [x] Yes [] No Do you have significant central nervous system disease? [] Yes [x] No Have you had an EKG, labs, or chest xray in last 12 months? If yes provide copies to anesthesia [x] Yes [] No [x] Lab [x] EKG [] CXR Have you had a stress test? [x] Yes [] No When/where:09/06/22 Was it normal? [] Yes [] No Do you or your family have a history of Malignant Hyperthermia? [] Yes [x] No Do you smoke? [] Yes [x] No Please refrain from smoking on the day of surgery. Patient instructed on: [x] NPO Status [x] Meds to Take [x] Ride Home [x]No Jewelry/Contact Lenses/Nail Belgian [] Prep/Lax/Clear Liquids [] Chlorhexidene DOS Patient Needs [] HCG [] Blood Sugar [] PT/INR [] T&S COVID Vaccinated? [x] Yes [] No Patient instructed on the pre-operative, intra-operative, and post-operative process? Yes Medication instructions reviewed with patient? Yes ] documented in this encounter [facility] Phone: 09-06-2022 History of Presen t illness Narrative Lexiscan administered, 09:01 Pt denies any chest pain or shortness of breath. 09:04 this part of test completed, pt given snack and beverage. documented in this encounter [facility] Phone: Evaluation note Diagnosis Heart murmur Undiagnosed cardiac murmurs Atrial dilatation, bilateral Cardiomegaly Hypertension, unspecified type Bradycardia Other specified cardiac dysrhythmias Abnormal cardiac rate Chronic fatigue Other malaise and fatigue Vitamin D deficiency Unspecified vitamin D deficiency documented in this encounter [facility] Phone: evaluation note* Diagnosis Heart murmur Undiagnosed cardiac murmurs Atrial dilatation, bilateral Cardiomegaly Hypertension, unspecified type Bradycardia Other specified cardiac dysrhythmias Abnormal cardiac rate Chronic fatigue Other malaise and fatigue Vitamin D deficiency Unspecified vitamin D deficiency documented in this encounter [facility] Phone: evaluation note* Diagnosis Heart murmur Undiagnosed cardiac murmurs Atrial dilatation, bilateral Cardiomegaly Hypertension, unspecified type Bradycardia Other specified cardiac dysrhythmias Abnormal cardiac rate Chronic fatigue Other malaise and fatigue Vitamin D deficiency Unspecified vitamin D deficiency documented in this encounter [facility] Phone: evaluation note* Diagnosis Abnormal EKG Nonspecific abnormal electrocardiogram (ECG) (EKG) V-tach Paroxysmal ventricular tachycardia Sick sinus syndrome (HCC) Sinoatrial node dysfunction documented in this encounter [facility] Phone: evaluation note* Diagnosis Abnormal EKG Nonspecific abnormal electrocardiogram (ECG) (EKG) Hypertension, unspecified type Screening cholesterol level Screening for lipoid disorders Sick sinus syndrome (HCC) Sinoatrial node dysfunction documented in this encounter [facility] Phone: evaluation note* Diagnosis SOB (shortness of breath) Shortness of breath V-tach Paroxysmal ventricular tachycardia Sick sinus syndrome (HCC) Sinoatrial node dysfunction documented in this encounter [facility] Phone: evaluation note* Diagnosis Abnormal EKG Nonspecific abnormal electrocardiogram (ECG) (EKG) Hypertension, unspecified type Screening cholesterol level Screening for lipoid disorders Sick sinus syndrome (HCC) Sinoatrial node dysfunction documented in this encounter [facility] Phone: evaluation note* Diagnosis SSS (sick sinus syndrome) (HCC)- Primary Sinoatrial node dysfunction Post-op pain Other acute postoperative pain SSS (sick sinus syndrome) (HCC) Sinoatrial node dysfunction documented in this encounter [facility] Phone: evaluation note* Diagnosis S/P CABG (coronary artery bypass graft)- Primary Postsurgical aortocoronary bypass [facility] S/P CABG (coronary artery bypass graft)- Primary Postsurgical aortocoronary bypass status [facility] Diagnosis S/P CABG (coronary artery bypass graft)- Primary Postsurgical aortocoronary bypass status [facility] Diagnosis S/P CABG (coronary artery bypass graft)- Primary Postsurgical aortocoronary bypass status [facility] Diagnosis S/P CABG (coronary artery bypass graft)- Primary Postsurgical aortocoronary bypass status [facility] Diagnosis Status post coronary artery bypass graft Postsurgical aortocoronary bypass status Artificial pacemaker Cardiac pacemaker in situ Hypertension, unspecified type SSS (sick sinus syndrome) (HCC) Sinoatrial node dysfunction Hyperlipidemia, unspecified hyperlipidemia type documented in this encounter [facility] Phone: evaluation note* Diagnosis Status post coronary artery bypass graft Postsurgical aortocoronary bypass status Artificial pacemaker Cardiac pacemaker in situ Hypertension, unspecified type SSS (sick sinus syndrome) (HCC) Sinoatrial node dysfunction Hyperlipidemia, unspecified hyperlipidemia type documented in this encounter [facility] Phone: Hospital Discharge instructions* Attachments The following attachments cannot be sent through Care Everywhere. * tramadol (Monegasque) * metoprolol (oral/injection) (Monegasque) * Biventricular Pacemaker: Post-op (Monegasque) [facility]: Summary Purpose Family History No Family History Records FoundNo Family History Records FoundNo Family History Records FoundNo Family History Records FoundNo Family History Records FoundNo Family History Records Found Advance Directives Latest Code Status on File Code Status Date Activated Date Inactivated Comments Full Code 10/05/2022 8:23 AM 10/05/2022 11:13 AM Healthcare Agents on File Name Relationship Healthcare Agent Reyeshi p Communication Caty Pulido Spouse Primary Decision Maker Latest Code Status on File Code Status Date Activated Date Inactivated Comments Full Code 10/17/2022 12:02 PM 10/21/2022 7:15 PM Code Status History Code Status Date Activated Date Inactivated Comments Full Code - Unverified 10/14/2022 4:26 PM 10/17/2022 12: 02 PM Full Code 10/14/2022 11:12 AM 10/14/2022 4:26 PM Latest Code Status on File Code Status Date Activated Date Inactivated Comments Full Code 10/05/2022 8:23 AM 10/05/2022 11:13 AM Healthcare Agents on File Name Erica Healthcare Agent Reyesks p Communication Caty Pulido Spouse Primary Decision Maker Latest Code Status on File Code Status Date Activated Date Inactivated Comments Full Code 10/05/2022 8:23 AM 10/05/2022 11:13 AM Healthcare Agents on File Name Erica Healthcare Agent Grace p Blayne Pulido Spouse Primary Decision Maker Reason for Referral Specialty Diagnoses / Procedures Referred By Contac t Referred To Contact Cardiology Diagnoses Heart murmur Atrial dilatation, bilateral Hypertension, unspecified type Bradycardia Abnormal cardiac rate Chronic fatigue Vitamin D deficiency Procedures EKG 12 lead Taj Da Silva MD [address] [place] [address] Referral ID Status Reason Start Date Expiration Date V isits Requested Visits Authorized [id number] Pending Review 07/09/2022 07/09/2023 1 1 Specialty Diagnoses / Procedures Referred By Contac t Referred To Contact Cardiology Diagnoses Abnormal EKG V-tach R94.31 (ICD-10-CM) - Abnormal EKG Procedures Stress test, myoview CHG MYOCARDIAL SPECT MULTIPLE STUDIES [id number] - CHG MYOCARDIAL SPECT MULTIPLE STUDIES Taj Da Silva MD [address] [place] [address] Referral ID Status Reason Start Date Expiration Date V isits Requested Visits Authorized [id number] Authorized 08/30/2022 08/30/2023 5 5 [facility]ty Diagnoses / [facility] To Contact Cardiology Diagnoses Abnormal EKG Hypertension, unspecified type Screening cholesterol level Procedures EKG 12 Lead Taj Da Silva MD [address] [place] [phone] Referral ID Status Reason Start Date Expiration Date Visits Re quested Visits Authorized [id number] Open 10/07/2022 10/07/2023 1 1 Specialty Diagnoses / Procedures Referred By Contac t Referred To Contact Cardiology Diagnoses SOB (shortness of breath) V-tach R06.02 (ICD-10-CM) - SOB (shortness of breath) Procedures ECHO Complete 2D W Doppler W Color TN ECHO HEART XTHORACIC,COMPLETE W DOPPLER [id number] - TN ECHO HEART XTHORACIC,COMPLETE W DOPPLER Taj Da Silva MD [address] [place] [phone] Referral ID Status Reason Start Date Expiration Date Visits Re quested Visits Authorized [id number] Closed 08/30/2022 08/30/2023 1 1 Specialty Diagnoses / Procedures [facility] Referred To Contact Cardiology Diagnoses Status post coronary artery bypass graft Artificial pacemaker Hypertension, unspecified type SSS (sick sinus syndrome) (HCC) Hyperlipidemia, unspecified hyperlipidemia type Procedures EKG 12 Lead Taj Da Silva MD [address] [place] [phone] Referral ID Status Reason Start Date Expiration Date Visits Re quested Visits Authorized [id number] Open 03/01/2023 02/29/2024 1 1 Additional Source Comments (unrecognized sect ion and content) No Status Records FoundNo Status Records FoundNo Status Records FoundNo Status Records FoundNo Status Records FoundNo Status Records Found INFORMATION SOURCE (unrecogn ized section and content) DATE CREATED AUTHOR 11/17/2021 [facility] dical Specialist DATE CREATED AUTHOR AUTHOR'S ORGANIZ ATION 09/16/2022 [facility] DATE CREATED AUTHOR AUTHOR'S ORGANIZ ATION 11/26/2022 [facility] DATE CREATED AUTHOR AUTHOR'S ORGANIZ ATION 12/29/2022 [facility] DATE CREATED AUTHOR AUTHOR'S ORGANIZ ATION 03/03/2023 [facility] DATE CREATED AUTHOR AUTHOR'S ORGANIZ ATION 03/03/2023 [facility] Care Teams (unrecognized sec tion and content) Tallier Relationship Specialty Start Date End Date Jose Lao MD [address] [place] [address] PCP - General 06/09/22 Tallier Relationship Specialty Start Date End Date Jose Lao MD [address] [place] [address] PCP - General 06/09/22 Tallier Relationship Specialty Start Date End Date Jose Lao MD [address] [place] [address] PCP - General 06/09/22 Tallier Relationship Specialty Start Date End Date Jose Lao MD [address] [place] [address] PCP - General 06/09/22 Tallier Relationship Specialty Start Date End Date Jose Lao MD [address] [place] [address] PCP - General 06/09/22 Tallier Relationship Specialty Start Date End Date Jose Lao MD [address] [place] [address] PCP - General 06/09/22 Tallier Relationship Specialty Start Date End Date Jose Lao MD [address] [place] [address] PCP - General 06/09/22 Tallier Relationship Specialty Start Date End Date Jose Lao MD [address] [place] [address] PCP - General 06/09/22 Tallier Relationship Specialty Start Date End Date Jose Lao MD [address] [place] [address] PCP - General 06/09/22 Tallier Relationship Specialty Start Date End Date Jose Lao MD [address] [place] [address] PCP - General 06/09/22 Tallier Relationship Specialty Start Date End Date Jose Lao MD [address] [place] [address] PCP - General 06/09/22 Tallier Relationship Specialty Start Date End Date Shanon Da Silva MD [address] [place] [address] PCP - General Cardiology 10/13/22 Tallier Relationship Specialty Start Date End Date Shanon Da Silva MD [address] [place] [address] PCP - General Cardiology 10/13/22 Tallier Relationship Specialty Start Date End Date Shanon Da Silva MD [address] [place] [address] PCP - General Cardiology 10/13/22 Tallier Relationship Specialty Start Date End Date Shanon Da Silva MD [address] [place] [address] PCP - General Cardiology 10/13/22 Tallier Relationship Specialty Start Date End Date Shanon Da Silva MD [address] [place] [id number] PCP - General Cardiology 10/13/22 Tallier Relationship Specialty Start Date End Date Jose Lao MD [address] [place] [id number] PCP - General 06/09/22 Reason for Visit (unrecogniz ed section and content) Specialty Diagnoses / Procedures Referred By Dave t Referred To Contact Cardiology Diagnoses Abnormal EKG V-tach R94.31 (ICD-10-CM) - Abnormal EKG Procedures Stress test, myoview CHG MYOCARDIAL SPECT MULTIPLE STUDIES [id number] - CHG MYOCARDIAL SPECT MULTIPLE STUDIES Taj Da Silva MD [address] [place] [phone] Referral ID Status Reason Start Date Expiration Date V isits Requested Visits Authorized [id number] Authorized 08/30/2022 08/30/2023 5 5 Specialty Diagnoses / Procedures Referred By Dave griffin Referred To Contact Cardiology Diagnoses SOB (shortness of breath) V-tach R06.02 (ICD-10-CM) - SOB (shortness of breath) Procedures ECHO Complete 2D W Doppler W Color TN ECHO HEART XTHORACIC,COMPLETE W DOPPLER [id number] - TN ECHO HEART XTHORACIC,COMPLETE W DOPPLER Taj Da Silva MD [address] [place] [phone] Referral ID Status Reason Start Date Expiration Date Visits Re quested Visits Authorized [id number] Closed 08/30/2022 08/30/2023 1 1 Specialty Diagnoses / Procedures Referred By Dave griffin Referred To Contact Diagnoses Sick sinus syndrome (HCC) Sick sinus syndrome (HCC) [I49.5] Procedures TN INS NEW/RPLCMT PRM PACEMAKR W/TRANS ELTRD ATRIAL PACEMAKER INSERTION PERMANENT Taj Da Silva MD [address] [place] [phone] [facility] [address] [place] [address] Referral ID Status Reason Start Date Expiration Date Visits Re quested Visits Authorized [id number] 1 1 Reason Comments Follow-up Reason Comments Post-op Reason Onset Date Comments Phase II Cardiac Rehab 11/02/2022 Reason Comments Follow-up S/P CABG x [address] Gabriel Landon on 10/17/22 and right lower extremity endoscopic greater saphenous vein harvesting by physician assistant professor of german Ordered Prescriptions (unrec ognized section and content) Prescription Sig Dispensed Refills Start Date End Da te metoprolol tartrate (LOPRESSOR) 25 MG tablet Take 1 tablet by mouth 2 times daily 60 tablet 3 10/06/2022 traMADol (ULTRAM) 50 MG tabletIndications:Post-op pain,SSS (sick sinus syndrome) (HCC) Take 1 tablet by mouth every 6 hours as needed for Pain for up to 5 days. Max Daily Amount: 200 mg 20 tablet 0 10/06/2022 10/11/2022 Scheduled Active and Recently Administ ered Medications (unrecognized section and content) Medication Order 10/04/2022 10/05/2022 10/06/2022 aspirin EC tablet 81 mg 81 mg, Oral, EVERY OTHER DAY, First dose on Mon10/05/22 at 1145, Until Discontinued, Do not crush or break. 1828 (Given - Provider: Matilde Henry RN) ceFAZolin (ANCEF) 2000 mg in dextrose 3 % 50 mL IVPB (duplex) (COMPLETED) 2,000 mg, IntraVENous, FOREIGN FOOD COOK SPECIALTY TO O.R., 1 dose, On Mon10/05/22 at 0845, Antimicrobial Indications: Surgical Prophylaxis, Administer within 1 hour prior to incision. Recommend to repeat in 3-4 hours after initial dose if still intra-op., Pre-op (day of surgery) 09 (New Bag - Provider: Wendy Houston, DIANE)0935 (Stopped - Provider: Bright Larry RN) latanoprost (XALATAN) 0.005 % ophthalmic solution 1 drop 1 drop, Both Eyes, NIGHTLY, First dose on Mon10/05/22 at 2100, Until Discontinued 2140 (Not Given - Provider: Yessenia Garsia RN - Reason: Patient/family refused) 2100 (Due) losartan (COZAAR) tablet 100 mg 100 mg, Oral, DAILY, First dose on Mon10/06/22 at 0900, Until Discontinued 075 (Given - Provid er: Tracie Broderick RN) metoprolol tartrate (LOPRESSOR) tablet 25 mg 25 mg, Oral, 2 TIMES DAILY, First dose on Mon10/06/22 at 0900, Until Discontinued 075 (Given - Provid er: Tracie Broderick RN)2099 (Due) sodium chloride flush 0.9 % injection 5-40 mL 5-40 mL, IntraVENous, EVERY 12 HOURS SCHEDULED (2 times per day), First dose on Mon10/05/22 at 1145, Until Discontinued, For Line Patency: Peripheral IV = 5 mL; Midline or Central Line = 10 mL/lumen. If following IV push medication, administer flush at same rate as the IV push. Flush volume is determined by type of infusion therapy being given. For non-viscous solutions use: Peripheral IV = 5 mL Midline or Central Line = 10 mL/lumen For viscous solutions (i.e. blood components, parenteral nutrition, contrast media, or after obtaining blood sample) use: Peripheral IV = 10 mL Midline or Central Line = 20 mL/lumen, Recovery(Cath) 182 (Given - Provider: Matilde Henry RN)213 (Given - Provider: Yessenia Garsia RN) 075 (Given - Provider: Tracie Broderick RN)2099 (Due) Continuous Medication Order 10/04/2022 10/05/2022 10/06/2022 0.9 % sodium chloride infusion (CANCELED) IntraVENous, at 125 mL/hr, CONTINUOUS, Starting on Mon10/05/22 at 0845, Pre-op (day of surgery) 0848 (New Bag - Provider: Sepideh Winters RN)0923 (NoRateChange - Provider: CRIS Harding CRNA)1026 (Anesthesia Volume Adjustment - Provider: CRIS Harding CRNA)1100 (Stopped - Provider: Tracie Broderick RN - Comment: stopped by other) PRN Medication Order 10/04/2022 10/05/202210/0610/06/2022 0.9 % sodium chloride infusion IntraVENous, at 5-250 mL/hr, PRN, if patient receiving piggyback infusions and maintenance fluids are not ordered OR KVO fluids to protect IV site / prevent frequent line interruptions/ long duration, Starting on Mon10/05/22 at 1124, For piggyback infusion, administer at same rate as piggyback for a total of 25 mL. Enter 25 mL into dose field and piggyback rate into rate field of order. If piggyback is infusing at a rate less than 100 mL/hr, enter 25 mL into dose field and 100 mL/hr into rate field of order. For KVO fluids, enter rate of 20 mL/hr or less into rate field of order., Recovery(Cath) acetaminophen (TYLENOL) tablet 650 mg 650 mg, Oral, EVERY 4 HOURS PRN, Starting on Mon10/05/22 at 1124, Until Discontinued, Other, Pain (1-10), Give in addition to any other pain medication ordered at same time for any pain indication., Recovery(Cath) bupivacaine (PF) (MARCAINE) 0.25 % injection (CANCELED) PRN, Starting on Mon10/05/22 at 0943, Until Mon10/05/22 at 1035, Intra-op 0943 (Given - Provider: Taj Da Silva MD - Comment: 90mL given up to sterile field to be used as local for procedure per Dr. Da Silva. 70mL used for procedure.) heparin (porcine) injection (CANCELED) PRN, Starting on Mon10/05/22 at 0944, Until Mon10/05/22 at 1035, Intra-op 0944 (Given - Provider: Taj Da Silva MD - Comment: 1000Units mixed in 500mL of 0.9% NaCl to be used as irrigation per Dr. Da Silva for procedure) sodium chloride flush 0.9 % injection 5-40 mL 5-40 mL, IntraVENous, PRN, Starting on Mon10/05/22 at 1124, Until Discontinued, Line Care, After every IV line use, For Line Patency: Peripheral IV = 5 mL; Midline or Central Line = 10 mL/lumen. If following IV push medication, administer flush at same rate as the IV push. Flush volume is determined by type of infusion therapy being given. For non-viscous solutions use: Peripheral IV = 5 mL Midline or Central Line = 10 mL/lumen For viscous solutions (i.e. blood components, parenteral nutrition, contrast media, or after obtaining blood sample) use: Peripheral IV = 10 mL Midline or Central Line = 20 mL/lumen, Recovery(Cath) traMADol (ULTRAM) tablet 50 mg 50 mg, Oral, EVERY 6 HOURS PRN, Starting on Mon10/05/22 at 1730, Until Discontinued, Pain Moderate (4-6), Pain Severe (7-10) 1827 (Given - Provider: Matilde Henry, DIANE) 0755 (Given - Provider: Tracie Broderick RN) vancomycin (VANCOCIN) injection (CANCELED) PRN, Starting on Mon10/05/22 at 0945, Until Mon10/05/22 at 1035, Intra-op 0945 (Given - Provider: Taj Da Silva MD - Comment: 1000mg of Vanco to be mixed with 1000mL of 0.9%NaCl to be used by Dr. Da Silva as irrigation for procedure.) FOR RECORDS PERTAINING TO PATIENTS WHO ARE OR HAVE BEEN ENROLLED IN A CHEMICAL DEPENDENCY/SUBSTANCEABUSE PROGRAM, SOME INFORMATION MAY BE OMITTED. This clinical summary was aggregated from multiple sources. Caution should be exercised in using it in the provision of clinical care. This summary normalizes information from multiple sources, and as a consequence, information in this document may materially change the coding, format and clinical context of patient data. In addition, data may be omitted in some cases. CLINICAL DECISIONS SHOULD BE BASED ON THE PRIMARY CLINICAL RECORDS. [employer] provides no warranty or guarantee of the accuracy or completeness of information in this document.
--- NOTE | 2023-10-12 07:05 | ECG_ITS ---
[facility] Test Date: 2023-10-12 Pat Name: YAMILEX PULIDO Department: Room: - Gender: Male [employer]: : 1950 Requested By: ANTOINETTE LAO Order Number: [id number] Reading MD: VIVEK GARCIA Measurements Intervals [place] Rate: 70 P: 46 UT: 178 QRS: 53 QRSD: 82 T: 66 QT: 350 QTc: 371 Interpretive Statements 1100 Sinus rhythm 4068 Nonspecific [place] abnormality 9130 borderline ECG Compared to ECG 05/18/2022 14:14:36 Sinus bradycardia no longer present Electronically Signed On 10-13-2023 7:22:25 EST by VIVEK GARCIA
--- NOTE | 2023-10-12 07:23 | US_ITS ---
[address] [address] Patient Name: YAMILEX PULIDO MRN: [id number] date: 1950 Sex: M Assigned Patient Location: ER Current Patient Location: ER Accession/Order Number: [id number] Exam Date: 10/12/2023 08:00 Report Date: 10/12/2023 08:45 At the request of: RODDY LINARES Procedure: US venous doppler UE LT EXAM: US venous doppler UE LT HISTORY: left arm swelling and pain COMPARISON: None. TECHNIQUE: Grayscale, color and Doppler FINDINGS: Region: Left arm Thrombus: Echogenic thrombus identified in a branch of the brachial vein proximal to mid arm Flow: Absent flow corresponding to thrombus Compressibility: Noncompressibility corresponding to thrombus US/US venous doppler UE LT IMPRESSION: Occlusive thrombus identified in a branch of the left brachial vein proximal to mid arm Electronically authenticated by: MAUREEN BARAJAS Date: 10/12/2023 08:45
--- NOTE | 2023-10-12 07:35 | ED_ITS ---
HPI - General Adult General Chief complaint: Extremity Problem, Nontraumatic Stated complaint: LT ARM SWELLING/RASH Time Seen by Provider: 10/12/23 07:01 Source: patient Mode of arrival: walk-in Limitations: no limitations History of Present Illness HPI narrative: Patient developed pain and swelling in the left hand a few days ago. Yesterday he developed redness to the left forearm and hand as the pain and swelling ascended to the left elbow. Last night he had fever and chills. This morning he presents with continued pain and swelling in the left UE, tingling in the fingers of the left hand. The redness has almost completely faded but there is still some residual redness along the volar surface of the left forearm. No chest pain or shortness of breath. No GI or symptoms. I saw him 09/24/23 when he had Covid. Related Data Home Medications Medication Instructions Recorded Confirmed allopurinol 100 mg tablet 100 mg PO DAILY 03/10/23 10/12/23 aspirin 81 mg capsule 81 mg PO DAILY 03/10/23 10/12/23 atorvastatin 10 mg tablet 10 mg PO QPM 03/10/23 10/12/23 clopidogrel 75 mg tablet 75 mg PO DAILY 03/10/23 10/12/23 dorzolamide 22.3 mg-timolol 6.8 1 drp ophthalmic (eye) BID 03/10/23 03/10/23 mg/mL eye drops (Cosopt) latanoprost 0.005 % eye drops 1 drp ophthalmic (eye) DAILY 03/10/23 03/10/23 (Xalatan) losartan 100 mg tablet 100 mg PO DAILY 03/10/23 10/12/23 metoprolol succinate 25 mg 12.5 mg PO DAILY 03/10/23 10/12/23 tablet,extended release 24 hr Allergies Allergy/AdvReac Type Severity Reaction Status Date / Time codeine Allergy Severe Verified 09/24/23 19:59 [facility] Medical History (Updated 10/12/23 @ 09:44 by Alexander Rivera) FHx: cholecystectomy ?Z83.79 - Family history of other diseases of the digestive system (ICD-10) Glaucoma ?H40.9 - Unspecified glaucoma (ICD-10) TIA (transient ischemic attack) ?G45.9 - Transient cerebral ischemic attack, unspecified (ICD-10) Fracture of T7 vertebra ?S22.069A - Unspecified fracture of T7-T8 vertebra, initial encounter for closed fracture (ICD-10) Sick sinus syndrome ?I49.5 - Sick sinus syndrome (ICD-10) CAD (coronary artery disease) ?I25.10 - Atherosclerotic heart disease of [place] coronary artery without angina pectoris (ICD-10) HTN (hypertension) ?I10 - Essential (primary) hypertension (ICD-10) Social History Smoking status: Never smoker Exam Narrative Exam Narrative: Nurses notes and vital signs reviewed and patient is not hypoxic. His BP is decreased at 90/58 T 99.9F General: Well-appearing and in no apparent distress. Skin: Warm, dry, no pallor noted. Faint redness to the volar red forearm. No additional rash noted. Head: Normocephalic, atraumatic. Neck: Supple, non-tender. Eye: Pupils are equal, round and EOMI. No scleral icterus. Ears, Nose, Mouth, and Throat: Oral mucosa is moist Cardiovascular: Regular Rate and Rhythm without murmur, gallop or rub. Respiratory: No accessory muscle use or respiratory distress. Lungs are clear to auscultation, no wheezing, rales or rhonchi Musculoskeletal: normal ROM, no calf or popliteal tenderness, no lower extremity edema/swelling GI: Abdomen is soft, non-distended. Normal bowel sounds. No tenderness to palpation. No rebound, guarding, or rigidity noted. Neurological: A&O x4. No cranial nerve dysfunction observed. No truncal ataxia. Moves all extremities. Sensation intact. Psychiatric: Cooperative and interactive. Normal mood and affect. Constitutional Vital Signs, click to edit/add: Last Vital Signs Temp 98.5 F 10/12/23 08:57 Pulse 63 10/12/23 09:30 Resp 13 10/12/23 09:30 BP 81/51 L 10/12/23 09:00 Pulse Ox 100 10/12/23 09:00 O2 Del Method Room Air 10/12/23 06:58 Course Vital Signs Vital signs: Vital Signs Temperature 99.9 F 10/12/23 06:58 Pulse Rate 78 10/12/23 06:58 Respiratory Rate 20 10/12/23 06:58 Blood Pressure 90/58 10/12/23 06:58 Pulse Oximetry 100 10/12/23 06:58 Oxygen Delivery Method Room Air 10/12/23 06:58 Temperature 98.5 F 10/12/23 08:57 Pulse Rate 63 10/12/23 09:30 Respiratory Rate 13 10/12/23 09:30 Blood Pressure 81/51 L 10/12/23 09:00 Pulse Oximetry 100 10/12/23 09:00 Oxygen Delivery Method Room Air 10/12/23 06:58 Medical Decision Making MDM Narrative Medical decision making narrative: Peripheral IV established and blood drawn and sent for testing, including lactate, procalcitonin and blood cultures per sepsis protocol. The patient was ordered to undergo venous ultrasound of the left upper extremity to rule out deep venous thrombosis. Normal WBC and negative lactate. CMP with normal electrolytes, elevated BUN and Cr and elevated Alk Phos, of uncertain significance. Left UE US = occlusive thrombus left brachial vein proximal to the mid arm. Patient ordered to receive heparin bolus and drip. When I informed the patinet, his told me that he had right hand swelling and occasional tingling for at least a week so I also ordered right UE US to be obtained. Right UE US did not identify DVT I called and spoke with Dr Nancy Guillaume - Vascular surgeon at [facility]. He agreed to have the patient receive heparin and be transferred to their ED for evaluation by the vascular team and possible thrombectomy if indicated. Patient made NPO. I spoke with Dr Ruvalcaba in the ED who accepted the patient. Call made to transport the patient to the ED at [facility] by ambulance on heparin drip. ETA 11am. Patient is agreeable to transfer for vascular surgery evaluation/possible intervention. Lab Data Lab results reviewed: Yes I reviewed the patient's lab results Labs: Lab Results 10/12/23 10/12/23 Range/Units 07:15 07:48 WBC 7.8 (4.0-11.0) 10^3/uL RBC 3.84 L (4.70-6.10) 10^6/uL Hgb 12.0 L (14.0-18.0) g/dL Hct 35.9 L (42.0-54.0) % MCV 93.5 (80.0-94.0) fL MCH 31.3 (25.9-34.0) pg MCHC 33.4 (29.9-35.2) g/dL RDW 12.8 (11.0-15.0) % Plt Count 258 (150-450) 10^3/uL MPV 9.4 L (9.5-13.5) fL Neut % (Auto) 77.0 H (43.0-75.0) % Lymph % (Auto) 11.3 L (20.5-60.0) % Rich % (Auto) 4.3 (1.7-12.0) % Eos % (Auto) 6.8 (0.9-7.0) % Baso % (Auto) 0.3 (0.2-2.0) % Neut # (Auto) 6.0 (1.4-6.5) 10^3/uL Lymph # (Auto) 0.9 L (1.2-3.8) 10^3/uL Rich # (Auto) 0.3 (0.3-0.8) 10^3/uL Eos # (Auto) 0.5 (0.0-0.7) 10^3/uL Baso # (Auto) 0.0 (0.0-0.1) 10^3/uL Abs Immat Gran (auto) 0.02 (0.00-0.03) 10^3/uL Imm/Tot Granulo (auto) 0.3 (0.0-0.5) % PT 10.5 (9.0-11.6) sec INR 0.99 APTT 22.4 (22.3-36.2) sec Sodium 140 (136-145) mmol/L Potassium 4.6 (3.5-5.1) mmol/L Chloride 107 (98-107) mmol/L Carbon Dioxide 23.6 (21.0-32.0) mmol/L Anion Gap 14.0 BUN 26.0 H (7.0-18.0) mg/dL Creatinine 1.38 H (0.70-1.30) mg/dL Est GFR ( Amer) >60 (>=60) Est GFR (Non-Af Amer) 51 L (>=60) BUN/Creatinine Ratio 18.8 Glucose 115 H (74-106) mg/dL Lactate 1.2 (0.4-2.0) mmol/L Calcium 8.9 (8.5-10.1) mg/dL Total Bilirubin 1.0 (0.2-1.0) mg/dL AST 22 (15-37) U/L ALT 60 (16-63) U/L Alkaline Phosphatase 289 H (46-116) U/L Total Protein 6.4 (6.4-8.2) g/dL Albumin 3.2 L (3.4-5.0) g/dL Globulin 3.2 g/dL Albumin/Globulin Ratio 1.0 Procalcitonin <0.05 (0.00-0.50) ng/mL ECG Data Attestation: I personally reviewed and interpreted this ECG as follows: Interpretation: EKG interpretation: Emergency Department physician interpretation. Normal sinus rhythm at 70bpm. Normal axis, normal intervals and non specific T wave changes without ST segment elevation or depression. Discharge Plan Discharge Chief Complaint: Extremity Problem, Nontraumatic Clinical Impression: Deep venous thrombosis of upper extremity Patient Disposition: [facility] Time of Disposition Decision: 09:43 Discharge Location: [facility]
[2023-10-12] MEDS: 0.9 % SODIUM CHLORIDE 2,190 ML 730 ML IV (07:40)
[2023-10-12] MEDS: AMPICILLIN SODIUM/SULBACTAM NA 3 GM in 0.9 % SODIUM CHLORIDE 100 ML IV (07:41)
[2023-10-12 07:52] LABS: Basophils Percent Auto 0.3 % (0.2-2.0); Eosinophils Absolute Auto 0.5 10^3/uL (0.0-0.7); Eosinophils Percent Auto 6.8 % (0.9-7.0); Hematocrit 35.9 % (42.0-54.0); Immature Granulocytes Abs Auto 0.02 10^3/uL (0.00-0.03); Immature Granulocytes Pct Auto 0.3 % (0.0-0.5); Lymphocytes Absolute Auto 0.9 10^3/uL (1.2-3.8); Lymphocytes Percent Auto 11.3 % (20.5-60.0); Mean Corpuscular HGB Conc 33.4 g/dL (29.9-35.2); Mean Corpuscular Hemoglobin 31.3 pg (25.9-34.0); Mean Corpuscular Volume 93.5 fL (80.0-94.0); Mean Platelet Volume 9.4 fL (9.5-13.5); Monocytes Absolute Auto 0.3 10^3/uL (0.3-0.8); Monocytes Percent Auto 4.3 % (1.7-12.0); Platelet Count 258 10^3/uL (150-450); Red Blood Count 3.84 10^6/uL (4.70-6.10); Red Cell Distribution Width 12.8 % (11.0-15.0); White Blood Count 7.8 10^3/uL (4.0-11.0)
[2023-10-12] MEDS: ONDANSETRON PF 4 MG/2 ML VIAL IV (07:58)
[2023-10-12] MEDS: HYDROMORPHONE HCL 0.5 MG/0.5 ML SYRINGE IV ×2 (07:58→08:46)
[2023-10-12 08:01] LABS: Alanine Aminotransferase 60 U/L (16-63); Albumin Level 3.2 g/dL (3.4-5.0); Alkaline Phosphatase 289 U/L (46-116); Aspartate Amino Transferase 22 U/L (15-37); BUN Creatinine Ratio 18.8; Calcium 8.9 mg/dL (8.5-10.1); Carbon Dioxide 23.6 mmol/L (21.0-32.0); Chloride 107 mmol/L (98-107); Estimated GFR (African America >60 (>=60); Estimated GFR (Non-African Ame 51 (>=60); Globulin 3.2 g/dL; Glucose 115 mg/dL (74-106); Potassium 4.6 mmol/L (3.5-5.1); Sodium 140 mmol/L (136-145); Total Protein 6.4 g/dL (6.4-8.2)
[2023-10-12 08:07] LABS: Lactate/Lactic Acid 1.2 mmol/L (0.4-2.0)
--- NOTE | 2023-10-12 08:40 | US_ITS ---
The [address] [address] Patient Name: YAMILEX PULIDO MRN: [id number] date: 1950 Sex: M Assigned Patient Location: ER Current Patient Location: ER Accession/Order Number: [id number] Exam Date: 10/12/2023 08:00 Report Date: 10/12/2023 09:54 At the request of: RODDY LINARES Procedure: US venous doppler UE RT EXAMINATION: US venous doppler UE RT HISTORY: right hand swelling, left UE DVT COMPARISON: No relevant comparison available. FINDINGS: REGION: Right upper extremity THROMBI: None. COMPRESSIBILITY: Normal compressibility. FLOW: Normal waveform and antegrade flow between 5 and 20 cm/s. OTHER: None. US/US venous doppler UE RT IMPRESSION: 1. No deep vein thrombus within the right upper extremity. Electronically authenticated by: NICOLE CORRALES Date: 10/12/2023 09:54
[2023-10-12] MEDS: HEPARIN SODIUM (PORCINE) 5,000 UNIT/ML VIAL 6350 UNIT IV (08:46)
[2023-10-12 08:47] LABS: PROCALCITONIN <0.05 ng/mL (0.00-0.50)
[2023-10-12 08:51] LABS: INR 0.99; Partial Thromboplastin Time 22.4 sec (22.3-36.2); Prothrombin Time 10.5 sec (9.0-11.6)
[2023-10-12] MEDS: HEPARIN SODIUM,PORCINE/D5W 25,000 UNIT/500 ML IV.SOLN 28 UNIT IV (08:51)
--- NOTE | 2023-10-12 10:09 | PC.NURSE ---
Patient informed and agrees to NPO status.
--- NOTE | 2023-10-12 11:06 | PC.NURSE ---
[facility] arrives for transport at this time to [facility]
--- NOTE | 2023-10-12 11:22 | PC.NURSE ---
Report called to [facility] to DIANE Boyle
== END 2023-10-12 11:24 | disposition short-term general hospital (02) ==
PROVIDERS: Emergency Provider Emergency Medicine; PCP Family Medicine
DX: I82.622 Acute embolism and thrombosis of deep veins of left upper extremity (principal); Z86.16 Personal history of COVID-19; Z79.82 Long term (current) use of aspirin; Z79.899 Other long term (current) drug therapy; I25.10 Atherosclerotic heart disease of native coronary artery without angina pectoris; I10 Essential (primary) hypertension; Z86.73 Personal history of transient ischemic attack (TIA), and cerebral infarction without residual deficits
CPT/HCPCS: 36415; 80053; 83605; 84145; 85025; 85610; 85730; 87040; 93005; 93971; 96365; 96375; 96376; 99285; J0295; J1170; J1644; J2405